=== PATIENT | female | born 1950 | race Caucasian/White ===

== ENCOUNTER → 2020-03-17 | Outpatient (CLI) | payer MEDICARE, MEDICAID ==
[~2020-03-17] MED LIST: ALBU8.5H4 IH; ALPR0.5T7 PO; ALPR1T PO; ASP81TEC PO; CATHETER FLUSH 10 ML SYR IV PRN; CETI10TA17 PO; CITA20TA4 PO; CYCL5TAB PO; ERGO400C PO; FENO145T26 PO; GLIM4TAB56 PO; INSU100I29 SQ; LISI2.5T PO; METF-380 PO; MTF500T PO; MULT-567 PO; MULTIVITAMIN; NAPR-243 PO; NF-ESOM40C PO; NITR-65 PO; PAMI30VI8 SQ; PRAV80TA2 PO; SOLI10TA2 PO; TRAM50TA2 PO
--- NOTE | 2020-03-17 12:32 | Diagnostic Imaging Report ---
Indication: Right upper quadrant pain. Patient received an intravenous dose of 5.5 mCi technetium 99m Choletec. At the 60 minute interval, patient ingested one can of Ensure for gallbladder stimulation with additional imaging performed. Gallbladder ejection fraction was normal at 83%. There is prompt homogenous distribution of radiopharmaceutical throughout the liver parenchyma. Activity can be seen within the gallbladder and the intra and extrahepatic bile ducts within 15 minutes time and by 40 minutes activity had spilled into the proximal bowel. Impression: Normal nuclear medicine hepatobiliary scan and normal gallbladder ejection fraction. Dictated by: Dictated on workstation # [id number]
== END ==
LOC: CARD 09:08
PROVIDERS: ATTEND Nurse Practitioner Family
DX: R10.11 Right upper quadrant pain (principal)
CPT/HCPCS: 78227; A9537

== ENCOUNTER 2021-06-04 12:15 | Emergency (ER) | payer MEDICARE, MEDICAID ==
[~2021-06-04] VITALS: Ht 162.5 cm; Wt 73.0 kg
[~2021-06-04 12:15] MED LIST changes: -CATHETER FLUSH 10 ML SYR IV PRN; -LISI2.5T PO; +LISI2.5T13 PO
[2021-06-04 12:43] LABS: BILIRUBIN,URINE NEGATIVE (NEGATIVE); CLARITY,URINE TURBID; COLOR,URINE YELLOW; GLUCOSE, URINE (UA) NEGATIVE (NEGATIVE); KETONES,URINE NEGATIVE (NEGATIVE); LEUKOCYTE ESTERASE ,URINE 1+ (NEGATIVE); NITRITE,URINE POSITIVE (NEGATIVE); PROTEIN,URINE TRACE (NEGATIVE)
[2021-06-04 12:47] LABS: BASOPHILS % (AUTO) 0 % (0-10); EOSINOPHILS # (AUTO) 0.2 10^3/uL (0.0-0.3); EOSINOPHILS % (AUTO) 2 % (0-10); HEMATOCRIT 41 % (35-52); HEMOGLOBIN 13.6 g/dL (11.5-16.0); LYMPHOCYTES # (AUTO) 2.6 10^3/uL (1.0-4.0); LYMPHOCYTES % (AUTO) 36 % (12-44); MEAN CORPUSCULAR HEMOGLOBIN 29 pg (25-34); MEAN CORPUSCULAR HGB CONC 33 g/dL (32-36); MEAN CORPUSCULAR VOLUME 87 fL (80-99); MEAN PLATELET VOLUME 9.8 fL (9.0-12.2); MONOCYTES # (AUTO) 0.4 10^3/uL (0.0-1.0); MONOCYTES % (AUTO) 5 % (0-12); NEUTROPHILS # (AUTO) 4.1 10^3/uL (1.8-7.8); NEUTROPHILS % (AUTO) 57 % (42-75); PLATELET COUNT 293 10^3/uL (130-400); WHITE BLOOD COUNT 7.3 10^3/uL (4.3-11.0)
--- NOTE | 2021-06-04 12:50 | ED Neurological Problem ---
General Chief Complaint: General Problems/Pain Stated Complaint: LOSS OF BALANCE Source: patient, family Exam Limitations: no limitations History of Present Illness Date Seen by Provider: Jun 04, 2021 Time Seen by Provider: 12:17 Initial Comments 71-year-old female with hospital history of hypertension, diabetes, COPD coming in with family due to difficulty walking and falling over. 10 days ago roughly she had difficulty balancing and fell to the left hitting her head. She has not seen anyone since then. She has had difficulty with her balance for the past 10 days. Denies any tinnitus or vertigo right now. States this is never happened before. Denies any associated symptoms such as chest pain, shortness of breath, abdominal pain, nausea, vomiting, diarrhea, fever, chills, focal weakness or numbness, or vision changes. No changes to her medications recently. She does have a mild headache which has been coming and going for the past 10 days and Tylenol typically takes it away. Allergies and Home Medications Allergies Coded Allergies: latex (Verified Allergy, Mild, rash, 12/10/14) ampicillin (Unverified Allergy, Unknown, 02/07/14) cetirizine HCl (Unverified Allergy, Unknown, 02/07/14) dimenhydrinate (Unverified Allergy, Unknown, 02/07/14) metformin HCl (Unverified Adverse Reaction, Unknown, 02/07/14) CAN TAKE METFORMIN Patient Home Medication List Home Medication List Reviewed: Yes Albuterol Sulfate (Albuterol Sulfate Hfa) 8.5 Gm Hfa.aer.ad, 2 PUFF IH Q4H PRN for SHORTNESS OF BREATH, (Reported) Entered as Reported by: MARCI GRACIA on 12/05/14 1614 Alprazolam (Alprazolam) 0.5 Mg Tablet, 0.5 MG PO DAILY PRN for ANXIETY, (Reported) Entered as Reported by: MARCI GRACIA on 12/05/14 1605 Cetirizine HCl (Cetirizine HCl) 10 Mg Tablet, 10 MG PO HS, (Reported) Entered as Reported by: MARCI GRACIA on 12/05/14 1613 Citalopram Hydrobromide (Citalopram Hbr) 20 Mg Tablet, 30 MG PO DAILY, (Reported) Entered as Reported by: SHILPA CHIANG on 09/03/11 1232 Cyclobenzaprine HCl (Cyclobenzaprine HCl) 5 Mg Tablet, 5-10 MG PO TID PRN for MUSCLE SPASMS, (Reported) Entered as Reported by: MARCI GRACIA on 12/05/141612 Esomeprazole Magnesium (Nexium) 40 Mg Cap, 40 MG PO HS, (Reported) Entered as Reported by: MARCI GRACIA on 12/05/141612 Fenofibrate Nanocrystallized (Fenofibrate) 145 Mg Tablet, 145 MG PO HS, (Reported) Entered as Reported by: MARCI GRACIA on 12/05/141612 Glimepiride (Amaryl) 4 Mg Tablet, 4 MG PO BID, (Reported) Entered as Reported by: MARCI GRACIA on 12/05/141612 Insulin Detemir (Levemir Flextouch) 100 Unit/1 Ml Insuln.pen, 30 UNIT SQ DAILY, (Reported) Entered as Reported by: MARCI GRACIA on 12/05/141612 Insulin Detemir (Levemir Flextouch) 100 Unit/1 Ml Insuln.pen, 25 UNIT SQ HS, (Reported) Entered as Reported by: MARCI GRACIA on 12/05/141612 Insulin Lispro (Humalog) 100 Unit/1 Ml Cartridge, 10 UNIT SQ TID WITH MEALS, (Reported) Entered as Reported by: MARCI GRACIA on 12/05/141612 Lisinopril (Lisinopril) 2.5 Mg Tablet, 2.5 MG PO DAILY, (Reported) Entered as Reported by: MARCI GRACIA on 12/05/141612 Multivitamin (Multivitamins) 1 Each Tablet, 1 TAB PO DAILY, (Reported) Entered as Reported by: MARCI GRACIA on 12/05/14 1605 Naproxen (Naprosyn) 500 Mg Tablet, 500 MG PO BID, (Reported) Entered as Reported by: SHILPA CHIANG on 09/03/11 1232 Nitrofurantoin Monohyd/M-Cryst (Macrobid 100 mg Capsule) 100 Mg Capsule, 100 MG PO BID, (Reported) Entered as Reported by: MARCI GRACIA on 8/13/15 1613 Solifenacin Succinate (Vesicare) 10 Mg Tablet, 10 MG PO DAILY, (Reported) Entered as Reported by: MARCI GRACIA on 12/05/14 1613 Tramadol Hcl (Tramadol Hcl) 50 Mg Tablet, 50-100 MG PO Q8H PRN for PAIN, (Reported) Entered as Reported by: SHILPA CHIANG on 09/03/11 1232 Review of Systems Review of Systems Constitutional: No chills, No fever Eyes: Denies Blurred Vision Ears, Nose, Mouth, Throat: no symptoms reported Respiratory: No cough, No short of breath Cardiovascular: No chest pain Gastrointestinal: No abdominal pain, No diarrhea, No nausea, No vomiting Genitourinary: no symptoms reported Musculoskeletal: no symptoms reported Skin: no symptoms reported Psychiatric/Neurological: Other (Difficulty with gait) Endocrine: No Symptoms Reported Hematologic/Lymphatic: No Symptoms Reported All Other Systems Reviewed Negative Unless Noted: Yes Past Wzwxeep-Kmzzuj-Iojbmw Hx Patient Social History Tobacco Use?: No Past Medical History Surgeries: No Asthma, COPD, Emphysema Gastroesophageal Reflux, Diverticulosis Arthritis, Chronic Back Pain Diabetes, Insulin dep Anxiety, Personality Disorder, Schizophrenia, Depression Eczema Physical Exam Vital Signs Vital Signs - First Documented 06/04/21 12:53 Temp 36.4 Pulse 90 Resp 18 B/P (MAP) 186/68 (107) Pulse Ox 99 O2 Delivery Room Air Capillary Refill : Height, Weight, BMI Height: 5'3.50" Weight: 179lbs. oz. 81.775431ui; BMI Method: General Appearance: WD/WN, no apparent distress HEENT: PERRL/EOMI, normal ENT inspection, TMs normal, pharynx normal, other (No nystagmus) Neck: non-tender, full range of motion, supple, normal inspection Respiratory: chest non-tender, lungs clear, normal breath sounds, no respiratory distress, no accessory muscle use Cardiovascular: regular rate, rhythm, no edema, no murmur Gastrointestinal: normal bowel sounds, non tender, soft; No distended, No guarding, No rebound Back: normal inspection, no CVA tenderness, no vertebral tenderness Extremities: normal range of motion, non-tender, normal inspection, no pedal edema, no calf tenderness, normal capillary refill Neurologic/Psychiatric: rivet flunky II-XII nml as tested, no motor/sensory deficits, alert, normal mood/affect, oriented x 3, other (Abnormal bgbbme-ux-evyk on the right with past-pointing, no dysdiadochokinesis, normal tzhw-dd-dxnu, normal gait but does tend to lean to the left, negative Romberg) Crainal Nerves: normal hearing, normal speech, PERRL Motor/Sensory: no motor deficit, no sensory deficit, no pronator drift Skin: normal color, warm/dry Lymphatic: no adenopathy Stroke Onset of Symptoms Date of Onset of Symptoms: May 25, 2021 Time of Symptom Onset: 08:00 Onset of Symptoms: Yes NIH Stroke Scale Assessment Select: Initial Level of Consciousness: 0=Alert (0), Level of Consciousness- Questions: 0=Answers both month/age (0), Gaze: Normal (0), Visual Villeda: 0=No visual loss (0), Facial Movement (Facial Paresis): 0=Normal symmetrical mnt (0), Motor Function-Arms Right: 0=No drift (0), Motor Function-Arms Left: 0=No drift (0), Motor Function-Legs Right: 0=No drift (0), Motor Function-L egs Left: 0=No drift (0), Limb Ataxia: 1=Present in one limb (1), Sensory: 0 =Normal:no loss (0), Best Language: 0=No aphasia (0), Dysarthria: 0=Normal (0), Extinction & Inattention: 0=No abnormality (0), Total: 1 Stroke Thrombolytic Exclusion Age 18 or Over: Yes TPA Contraindication: Yes (>10 days of symptoms) Progress/Results/Core Measures Results/Orders Lab Results Laboratory Tests Test 06/04/21 12:18 06/04/21 12:40 Range/Units Urine Color YELLOW Urine Clarity TURBID Urine pH 6.0 5-9 Urine Specific Forbes >=1.030 1.016-1.022 Urine Protein TRACE H NEGATIVE Urine Glucose (UA) NEGATIVE NEGATIVE Urine Ketones NEGATIVE NEGATIVE Urine Nitrite POSITIVE H NEGATIVE Urine Bilirubin NEGATIVE NEGATIVE Urine Urobilinogen 0.2 < = 1.0 MG/DL Urine Leukocyte Esterase 1+ H NEGATIVE Urine RBC (Auto) NEGATIVE NEGATIVE Urine RBC 0-2 /HPF Urine WBC 25-50 H /HPF Urine Squamous Epithelial Cells 2-5 /HPF Urine Crystals NONE /LPF Urine Bacteria LARGE H /HPF Urine Casts PRESENT /LPF Urine Hyaline Casts 0-2 H /LPF Urine Mucus LARGE H /LPF Urine Culture Indicated YES White Blood Count 7.3 4.3-11.0 10^3/uL Red Blood Count 4.73 3.80-5.11 10^6/uL Hemoglobin 13.6 11.5-16.0 g/dL Hematocrit 41 35-52 % Mean Corpuscular Volume 87 80-99 fL Mean Corpuscular Hemoglobin 29 25-34 pg Mean Corpuscular Hemoglobin Concent 33 32-36 g/dL Red Cell Distribution Width 13.4 10.0-14.5 % Platelet Count 293 130-400 10^3/uL Mean Platelet Volume 9.8 9.0-12.2 fL Immature Granulocyte % (Auto) 0 % Neutrophils (%) (Auto) 57 42-75 % Lymphocytes (%) (Auto) 36 12-44 % Monocytes (%) (Auto) 5 0-12 % Eosinophils (%) (Auto) 2 0-10 % Basophils (%) (Auto) 0 0-10 % Neutrophils # (Auto) 4.1 1.8-7.8 10^3/uL Lymphocytes # (Auto) 2.6 1.0-4.0 10^3/uL Monocytes # (Auto) 0.4 0.0-1.0 10^3/uL Eosinophils # (Auto) 0.2 0.0-0.3 10^3/uL Basophils # (Auto) 0.0 0.0-0.1 10^3/uL Immature Granulocyte # (Auto) 0.0 0.0-0.1 10^3/uL Prothrombin Time 13.9 12.2-14.7 SEC INR Comment 1.0 0.8-1.4 Activated Partial Thromboplast Time 28 24-35 SEC Sodium Level 140 135-145 MMOL/L Potassium Level 3.5 L 3.6-5.0 MMOL/L Chloride Level 102 98-107 MMOL/L Carbon Dioxide Level 24 21-32 MMOL/L Anion Gap 14 5-14 MMOL/L Blood Urea Nitrogen 14 7-18 MG/DL Creatinine 0.90 0.60-1.30 MG/DL Estimat Glomerular Filtration Rate 69 BUN/Creatinine Ratio 16 Glucose Level 97 70-105 MG/DL Calcium Level 9.6 8.5-10.1 MG/DL Corrected Calcium 9.3 8.5-10.1 MG/DL Total Bilirubin 0.4 0.1-1.0 MG/DL Aspartate Amino Transf (AST/SGOT) 36 H 5-34 U/L Alanine Aminotransferase (ALT/SGPT) 35 0-55 U/L Alkaline Phosphatase 37 L 40-136 U/L Troponin I < 0.30 <0.30 NG/ML Total Protein 7.4 6.4-8.2 GM/DL Albumin 4.4 3.2-4.5 GM/DL My Orders Orders - PRIYA HAYS MD Cbc With Automated Diff (06/04/21 12:36) Protime With Inr (06/04/21 12:36) Partial Thromboplastin Time (06/04/21 12:36) Comprehensive Metabolic Panel (06/04/21 12:36) Troponin I Fs (06/04/21 12:36) Ua Culture If Indicated (06/04/21 12:36) Chest 1 View Ap/Pa Only (06/04/21 12:36) Ekg Tracing (06/04/21 12:36) Accucheck Stat ONCE (06/04/21 12:36) Ed Iv/Invasive Line Start (06/04/21 12:36) Ed Iv/Invasive Line Start (06/04/21 12:36) Vital Signs Stroke Patient Q15M (06/04/21 12:36) O2 (06/04/21 12:36) Intake & Output 06,14,22 (06/04/21 12:36) Monitor-Rhythm Ecg Trace Only (06/04/21 12:36) Dysphagia Screening Tool (06/04/21 12:36) Ct Angio Head/Neck (06/04/21 12:36) Urine Culture (06/04/21 12:18) Ns Iv 500 Ml (Sodium Chloride 0.9%) (06/04/21 13:30) Ceftriaxone 1 Gm Pre-Mix (Rocephin 1 Gm (06/04/21 13:30) Iohexol Injection (Omnipaque 350 Mg/Ml 1 (06/04/21 13:30) Received Contrast (Hold Metformin- Contr (06/04/21 13:30) Sodium Chloride Flush (Catheter Flush Sy (06/04/21 13:30) Ns (Ivpb) (Sodium Chloride 0.9% Ivpb Bag (06/04/21 13:30) Dexamethasone Injection (Decadron Inje (06/04/21 15:45) Medications Given in ED Current Medications Medications Dose Ordered Sig/Priyanka Route Start Time Stop Time Status Last Admin Dose Admin Ceftriaxone Sodium/Dextrose 50 ml @ 100 mls/hr ONCE ONCE IV 06/04/21 13:30 06/04/21 13:59 DC 06/04/21 13:55 100 MLS/HR Dexamethasone Sodium Phosphate 10 mg ONCE ONCE IV 06/04/21 15:45 06/04/21 15:46 DC 06/04/21 16:35 10 MG Iohexol 75 ml ONCE ONCE IV 06/04/21 13:30 06/04/21 13:31 DC 06/04/21 14:10 75 ML Sodium Chloride 10 ml NEEDED PRN IV 06/04/21 13:30 06/04/21 14:10 10 ML Sodium Chloride 100 ml ONCE ONCE IV 06/04/21 13:30 06/04/21 13:31 DC 06/04/21 14:10 100 ML Sodium Chloride 500 ml @ 0 mls/hr Q0M ONCE IV 06/04/21 13:30 06/04/21 13:31 DC 06/04/21 13:53 0 MLS/HR Vital Signs/I&O 06/04/21 12:53 Temp 36.4 Pulse 90 Resp 18 B/P (MAP) 186/68 (107) Pulse Ox 99 O2 Delivery Room Air Progress Progress Note : Progress Note 71-year-old female with above history coming in due to ataxia and difficulty walking. ABCs were intact and vitals were stable on presentation. Physical exam with limb ataxia and she is falling to the left with her gait. She was day 10 of the symptoms so she was out of any window for any type of stroke treatment. CTA head and neck still ordered to evaluate for subacute/old stroke. This was concerning for multiple brain lesions, particularly to in her cerebellum with edema and mass-effect on her fourth ventricle. Other labs unremarkable except for concerns for UTI. She was given a dose of IV ceftriaxone as well as 500 cc of normal saline. Called [facility] at 15:19, no beds. Asked to consult with neurosurgeon regarding her case. He recommended high dose dexamethasone IV 10mg now and then 6mg IV or PO q6 hours. Recommended MRI brain with contrast and CT CAP with contrast when able but not emergent. Called [facility] at 15:[address] Taveras will be the accepting physician as a neurosurgeon. She will go to the neuro intensive care unit. Initial ECG Impression Date: Jun 04, 2021 Initial ECG Impression Time: 12:44 Initial ECG Rate: 80 Initial ECG Rhythm: Normal Sinus Comment Narrow QRS, normal axis, no significant ST changes or T wave abnormalities Diagnostic Imaging Diagonstic Imaging: Xray (chest), CT (CTA head and neck) [facility] [place] [place] NAME: SUNIL HYMAN [facility] REC#: [id number] PT STATUS: REG ER : 1950 PHYSICIAN: PRIYA HAYS MD ADMIT DATE: 06/04/21/ER FS Signed Date of Exam:06/04/21 CT ANGIO HEAD/NECK PROCEDURE: CT angiography of the head and CT angiography of the neck with and without contrast. TECHNIQUE: Contiguous noncontrast images were obtained from the skull base through the vertex. After intravenous contrast administration, helical CT angiography of the neck was performed. Source data was reformatted into 3D MIP projections. Delayed post contrast acquisition was also obtained. Auto Exposure Controls were utilized during the CT exam to meet ALARA standards for radiation dose reduction. INDICATION: STROKE, falling, loss of balance. COMPARISON: None available. FINDINGS: No intracranial hemorrhage. A 1.2 cm peripherally enhancing mass lesion is identified within the right occipital lobe with adjacent edema. Additional 3.3 x 2.1 cm peripherally enhancing mass lesion is noted within the right cerebellar hemisphere with associated adjacent hypodense edema. There is resulting mass effect with partial effacement on the 4th ventricle. Additional 1.4 cm peripherally enhancing mass within the left cerebellar hemisphere. Additional minimal subcortical hypodensities are identified within the bilateral frontal lobes. No intracranial hemorrhage. No midline shift, herniation, extra-axial fluid collection, midline shift involving the interhemispheric falx. No CT evidence of a large geographic acute ischemic infarction. The orbits are unremarkable. Small amount of fluid/mucosal thickening within the right sphenoid sinus. Partial opacification of the right mastoid air cells and middle ear cavity. The calvarium is intact. The parapharyngeal fat is symmetric and well maintained. Muscles of mastication are unremarkable. The salivary glands are unremarkable. 1.5 cm nodule suggested within the isthmus of the thyroid gland. No apical pneumothorax. 3.5 x 2.0 cm enlarged AP window lymph node within the chest. No significant adenopathy within the neck. No focal fluid collection within the neck. Scattered osseous degenerative changes without acute osseous abnormality. A three-vessel aortic arch is present. origin of the left posterior cerebral artery. Mild scattered vascular calcifications, particularly within the carotid bulbs. The proximal right vertebral artery demonstrates an abnormal course and does not extend into the transverse foramen until the level of C4/C5. The large arterial structures of the head and neck are otherwise unremarkable. Scattered osseous degenerative changes with significant central canal and right neural foraminal stenosis at C4/C5. Additional central canal stenosis present at C6/C7. IMPRESSION: Multiple peripherally enhancing intracranial mass lesions, as described above, particularly within the right aspect of the cerebellum. Findings are concerning for metastatic disease. Multifocal abscesses is an additional consideration. Recommend clinical correlation. Additionally, MRI of the brain with and without contrast would help to further evaluate. Minimal hypodensity within the subcortical white matter of the bilateral frontal lobes. This is favored to simply relate to minimal background chronic small vessel white matter ischemic disease. Edema from underlying mass lesions is not excluded. These regions should be evaluated on MRI imaging. Besides congenital anatomic variants, the large arterial structures of the head and neck are otherwise unremarkable. Degenerative changes within the cervical spine with significant central canal and neural foraminal stenosis, particularly at C4/C5. Prominent isthmic nodule. Recommend a thyroid ultrasound for further evaluation. Abnormal AP window lymph node/mass within the chest. This is concerning for malignancy/lymphoma. Recommend clinical correlation. Nonemergent CT the chest with contrast would help to further evaluate. Report was called to the [facility] at 2:57 p.m., by francesco. Dictated by: Dictated on workstation # [id number] Dict: 06/04/21 1422 Trans: 06/04/211524 FRANCESCO [id number] Interpreted by: FROILAN FOURNIER MD Electronically signed by: FROILAN FOURNIER MD 06/04/213 [facility] [place], [place] NAME: SUNIL HYMAN [facility] REC#: [id number] PT STATUS: REG ER : 1950 PHYSICIAN: PRIYA HAYS MD ADMIT DATE: 06/04/21/ER FS Signed Date of Exam:06/04/21 CHEST 1 VIEW AP/PA ONLY INDICATION: Stroke, loss of balance. COMPARISON: None available. TECHNIQUE: Single frontal radiograph of the chest dated 06/04/2021. FINDINGS: The cardiac silhouette is within normal limits in size. No significant pulmonary vascular congestion. Mild elevation of the left hemidiaphragm. The lungs are clear of focal pulmonary opacity. No pleural effusion. No pneumothorax. No acute osseous abnormality. IMPRESSION: Mild elevation of the left hemidiaphragm. Otherwise, unremarkable exam for age. Dictated by: Dictated on workstation # [id number] Dict: 06/04/21 1315 Trans: 06/04/21 1524 [id number] Interpreted by: FROILAN FOURNIER MD Electronically signed by: FROILAN FOURNIER MD 06/04/21 1524 Departure Impression Primary Impression: Cerebellar mass Additional Impressions: Ataxia Cerebral edema Disposition: XF [facility] HOSP Condition: Stable Transfer Transfer Reason: Exceeds level of care Time Spoke to Accepting Phy: 16:00 Transfer Progress Notes Discussed the case with [facility] and Dr. Taveras will accept to the neuro ICU. Transfer Facility: [facility] Method of Transfer: Air Departure-Patient Inst. Referrals: NO,LOCAL PHYSICIAN (PCP/Family) Primary Care Physician PRIYA HAYS MD Jun 04, 2021 12:50
[2021-06-04 12:52] LABS: BACTERIA,URINE LARGE /HPF; HYALINE CASTS, URINE 0-2 /LPF; RBC,URINE 0-2 /HPF; WBC,URINE 25-50 /HPF
[2021-06-04 13:09] LABS: PROTHROMBIN TIME PATIENT 13.9 SEC (12.2-14.7)
--- NOTE | 2021-06-04 13:22 | Diagnostic Imaging Report ---
INDICATION: Stroke, loss of balance. COMPARISON: None available. TECHNIQUE: Single frontal radiograph of the chest dated 06/04/2021. FINDINGS: The cardiac silhouette is within normal limits in size. No significant pulmonary vascular congestion. Mild elevation of the left hemidiaphragm. The lungs are clear of focal pulmonary opacity. No pleural effusion. No pneumothorax. No acute osseous abnormality. IMPRESSION: Mild elevation of the left hemidiaphragm. Otherwise, unremarkable exam for age. Dictated by: Dictated on workstation # [id number]
[2021-06-04] MEDS ORDERED: HOLD METFORMIN - RECEIVED CONTRAST 20 ML VIAL IV SCH (13:30)
[2021-06-04] MEDS ORDERED: NS IV 500 ML 500 ML IV ONE (13:30)
[2021-06-04] MEDS ORDERED: CATHETER FLUSH 10 ML SYR IV PRN (13:30)
[2021-06-04] MEDS ORDERED: IOHEXOL 350 MG/ML 150 ML (OMNIPAQUE 350) VIAL IV ONE (13:30)
[2021-06-04] MEDS ORDERED: cefTRIAXone 1 GM PRE-MIX 50 ML IV ONE (13:30)
[2021-06-04] MEDS ORDERED: NS 100 ML (IVPB) BAG IV ONE (13:30)
[2021-06-04 13:53] LABS: ALANINE AMINOTRANSFERASE 35 U/L (0-55); ALBUMIN 4.4 GM/DL (3.2-4.5); ALKALINE PHOSPHATASE 37 U/L (40-136); BILIRUBIN,TOTAL 0.4 MG/DL (0.1-1.0); BUN/CREATININE RATIO 16; CALCIUM 9.6 MG/DL (8.5-10.1); CARBON DIOXIDE 24 MMOL/L (21-32); CHLORIDE 102 MMOL/L (98-107); GFR ESTIMATED 69; GLUCOSE 97 MG/DL (70-105); POTASSIUM 3.5 MMOL/L (3.6-5.0); SODIUM 140 MMOL/L (135-145); TOTAL PROTEIN 7.4 GM/DL (6.4-8.2)
--- NOTE | 2021-06-04 15:02 | Diagnostic Imaging Report ---
PROCEDURE: CT angiography of the head and CT angiography of the neck with and without contrast. TECHNIQUE: Contiguous noncontrast images were obtained from the skull base through the vertex. After intravenous contrast administration, helical CT angiography of the neck was performed. Source data was reformatted into 3D MIP projections. Delayed post contrast acquisition was also obtained. Auto Exposure Controls were utilized during the CT exam to meet ALARA standards for radiation dose reduction. INDICATION: STROKE, falling, loss of balance. COMPARISON: None available. FINDINGS: No intracranial hemorrhage. A 1.2 cm peripherally enhancing mass lesion is identified within the right occipital lobe with adjacent edema. Additional 3.3 x 2.1 cm peripherally enhancing mass lesion is noted within the right cerebellar hemisphere with associated adjacent hypodense edema. There is resulting mass effect with partial effacement on the 4th ventricle. Additional 1.4 cm peripherally enhancing mass within the left cerebellar hemisphere. Additional minimal subcortical hypodensities are identified within the bilateral frontal lobes. No intracranial hemorrhage. No midline shift, herniation, extra-axial fluid collection, midline shift involving the interhemispheric falx. No CT evidence of a large geographic acute ischemic infarction. The orbits are unremarkable. Small amount of fluid/mucosal thickening within the right sphenoid sinus. Partial opacification of the right mastoid air cells and middle ear cavity. The calvarium is intact. The parapharyngeal fat is symmetric and well maintained. Muscles of mastication are unremarkable. The salivary glands are unremarkable. 1.5 cm nodule suggested within the isthmus of the thyroid gland. No apical pneumothorax. 3.5 x 2.0 cm enlarged AP window lymph node within the chest. No significant adenopathy within the neck. No focal fluid collection within the neck. Scattered osseous degenerative changes without acute osseous abnormality. A three-vessel aortic arch is present. origin of the left posterior cerebral artery. Mild scattered vascular calcifications, particularly within the carotid bulbs. The proximal right vertebral artery demonstrates an abnormal course and does not extend into the transverse foramen until the level of C4/C5. The large arterial structures of the head and neck are otherwise unremarkable. Scattered osseous degenerative changes with significant central canal and right neural foraminal stenosis at C4/C5. Additional central canal stenosis present at C6/C7. IMPRESSION: Multiple peripherally enhancing intracranial mass lesions, as described above, particularly within the right aspect of the cerebellum. Findings are concerning for metastatic disease. Multifocal abscesses is an additional consideration. Recommend clinical correlation. Additionally, MRI of the brain with and without contrast would help to further evaluate. Minimal hypodensity within the subcortical white matter of the bilateral frontal lobes. This is favored to simply relate to minimal background chronic small vessel white matter ischemic disease. Edema from underlying mass lesions is not excluded. These regions should be evaluated on MRI imaging. Besides congenital anatomic variants, the large arterial structures of the head and neck are otherwise unremarkable. Degenerative changes within the cervical spine with significant central canal and neural foraminal stenosis, particularly at C4/C5. Prominent isthmic nodule. Recommend a thyroid ultrasound for further evaluation. Abnormal AP window lymph node/mass within the chest. This is concerning for malignancy/lymphoma. Recommend clinical correlation. Nonemergent CT the chest with contrast would help to further evaluate. Report was called to the [facility] [place] [facility] at 2:57 p.m., by melvi. Dictated by: Dictated on workstation # [id number]
[2021-06-04 17:35] VITALS: BP 137/90
== END 2021-06-04 17:35 | disposition short-term general hospital (02) ==
LOC: EDUNIT# 12:15 → ER FS 12:17
DX: G93.6 Cerebral edema (principal); G11.9 Hereditary ataxia, unspecified; I10 Essential (primary) hypertension; E11.9 Type 2 diabetes mellitus without complications; F32.9 Major depressive disorder, single episode, unspecified; K21.9 Gastro-esophageal reflux disease without esophagitis; J43.9 Emphysema, unspecified; F41.9 Anxiety disorder, unspecified; F20.9 Schizophrenia, unspecified; F60.9 Personality disorder, unspecified; Z88.8 Allergy status to other drugs, medicaments and biological substances; Z79.4 Long term (current) use of insulin; Z79.899 Other long term (current) drug therapy
CPT/HCPCS: 36415; 70496; 70498; 71045; 80053; 81000; 84484; 85025; 85610; 85730; 87077; 87088; 87186; 93005; 93041; 99291

== ENCOUNTER 2021-06-16 12:45 | Inpatient (IN) | payer MEDICARE, MEDICAID ==
[~2021-06-16] VITALS: Ht 162 cm; Wt 68.2 kg
[2021-06-16] MEDS ORDERED: DOCUSATE SODIUM 100 MG (COLACE) CAP PO PRN (13:00)
[2021-06-16] MEDS ORDERED: LACTULOSE SYRUP 10GM/15ML (ENULOSE) 30ML UDC PO PRN (13:00)
[2021-06-16] MEDS ORDERED: guaiFENesin/CODEINE (ROBITUSSIN AC) 10ML UDC PO PRN (13:00)
[2021-06-16] MEDS ORDERED: ONDANSETRON 4 MG (ZOFRAN) ORAL DISSOLVE TAB PO PRN (13:00)
[2021-06-16] MEDS ORDERED: CALCIUM CARBONATE 500 MG (TUMS) TAB.CHEW PO PRN (13:00)
[2021-06-16] MEDS ORDERED: FLEET ENEMA ADULT 1 EA BTL PR PRN (13:00)
[2021-06-16] MEDS ORDERED: MELATONIN 3 MG TABLET PO PRN (13:00)
[2021-06-16] MEDS ORDERED: ACETAMINOPHEN 325 MG TABLET PO PRN (13:00)
[2021-06-16] MEDS ORDERED: LOPERAMIDE 2 MG (IMODIUM) TABLET PO PRN (13:00)
[2021-06-16] MEDS ORDERED: ALPRAZolam 0.25 MG (XANAX) TAB PO PRN (13:00)
[2021-06-16] MEDS ORDERED: BISACODYL 10 MG SUPP (DULCOLAX) PR PRN (13:00)
[2021-06-16] MEDS ORDERED: OXYB5TAB13 PO (14:54)
[2021-06-16] MEDS ORDERED: INSU100I32 SQ (14:54)
[2021-06-16] MEDS ORDERED: INSU100I14 SQ ×2 (14:54)
[2021-06-16] MEDS ORDERED: MULT-1136 PO (14:54)
[2021-06-16] MEDS ORDERED: ALB0.5V INH (14:54)
[2021-06-16] MEDS ORDERED: ACET325C7 PO (14:54)
[2021-06-16] MEDS ORDERED: DULO60CA59 PO (14:54)
[2021-06-16] MEDS ORDERED: FENO145T26 PO (14:54)
[2021-06-16] MEDS ORDERED: SENN-109 PO (14:54)
[2021-06-16] MEDS ORDERED: ROSU20TA32 PO (14:54)
[2021-06-16] MEDS ORDERED: DEXA4TAB PO (14:54)
[2021-06-16] MEDS ORDERED: SEMA1PEN3 SQ (14:54)
[2021-06-16] MEDS ORDERED: PANT40TA52 PO (14:54)
[2021-06-16] MEDS ORDERED: FLAX10004 PO (14:54)
[2021-06-16] MEDS ORDERED: ASPI-1238 PO (14:54)
[2021-06-16] MEDS ORDERED: HEPA50002 IJ (14:54)
[2021-06-16 15:34] VITALS: BP 108/58
--- NOTE | 2021-06-16 15:47 | PM&R Post Admission Assessment ---
PM&R HP Date of Visit: Jun 16, 2021 Time of Visit: 18:30 History of Present Illness Chief complaint: Brain surgery debility History of present illness: This is a 71-year-old white female from following craniotomy due to right cerebellar brain mass resection. Patient smoked for 50 years but quit recently to protect the health of her dog. She is in need of aggressive rehab due to continued balance issues and weakness and will undergo radiation treatment daily. She has a longstanding history of mental illness with schizophrenia and lives at home alone. Currently she is waiting on her supper and reports no dysphagia. Prior level of function was independent without the use of assistive devices. 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 She was seen at the emergency room in [place] for balance issues and headaches and CT scan revealed a posterior fossa lesion. She was then transferred to [facility] on 06/04/21. A CT scan showed 4 rim enhancing lesions concerning for brain metastasis. It is suspected that the brain tumors are metastasis form small cell carcinoma of the lungs and a lung biopsy was taken to assess but the pathology is still pending. A craniotomy was performed to remove the right cerebellar brain tumor. After the craniotomy, the patient was found to have both functional and mobile deficits and was working with PT/OT at [facility]. It was recommended that the patient go to an intensive rehabilitation therapy program after she was discharged. She was discharged to [facility] rehabilitation program. Patient says she is feeling excellent today. She reports no pain or discomfort but does say she is fatigued. She says she had diarrhea all night last night after taking milk of magnesium. PMH: hypertension, type II diabetes, COPD, emphysema, hyperlipidemia, Schizophrenia, fatty liver, small cell carcinoma of the lungs, metastatic cerebellar tumor, GERD, diverticulosis, anxiety Surgical history: craniotomy, lung biospy, breast lumpectomy, hysterectomy, tonsillectomy Allergies: latex, ampicillin, cetrizine, dimenhydrinate, metformin Home Medications: Aspirin 81 MG PO DAILY, Dexamethasone 4 MG PO BID WITH MEALS, Duloxetine HCl 60 MG PO DAILY, Fenofibrate Nanocrystallized 145 MG PO DAILY, Flaxseed Oil 1,000 MG PO BID, Heparin Sodium,Porcine/Pf 0.5 ML IJ Q8H, Insulin Aspart 20 UNITS SQ BID WITH MEALS, Insulin Aspart 25 UNITS SQ 1200 W/MEAL, Insulin Degludec 50 UNIT SQ DAILY, Multivitamin 1 EACH PO DAILY, Oxybutynin Chloride 5 MG PO TID, Pantoprazole Sodium 40 MG PO DAILY, Rosuvastatin Calcium 20 MG PO DAILY, Semaglutide 1 MG SQ WED Social history: Lives in an apartment in [place] next door to her ex- who helps take care of her. She has caregivers that assist her 30 hours a week. Previous smoker (180 pack year history) who quit 5 years ago, denies alcohol use, denies illicit drug use. ROS: Patient denies chills, fever, chest pain, palpitations, sob, vomiting, constipation, nausea, headache, vision changes. Admits to feeling weak and fatigued. Says she has dyspnea with exertion. Says she is having diarrhea. 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 Type 2 diabetes HTN HLD COPD Fatty liver disease Anxiety Plan: Debility - patient will be working with PT and OT to work on strength and balance Cognitive deficit - condition seems to have resolved Small cell lung cancer - pathology pending for formal diagnosis - preliminary findings were consistent with small cell carcinoma - if positive for small cell carcinoma, plans for systemic chemotherapy will be initiated by oncology 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 - chemotherapy is being deferred until incision has healed and patient has rodrick demarcus her strength - patient will follow up with oncology Type 2 diabetes - restart home medications insulin aspart on a sliding scale, insulin degludec, and semaglutide - blood glucose levels need to be checked - patient put on a diabetic diet HTN - patient's BP is low and no medication are needed at this time for HTN HLD - restart home medications fenofibrate and rosuvastatin COPD - restart home medication albuterol Fatty liver disease - condition stable Anxiety - restart home medication duloxetine Past Xfmmihc-Dvjlxc-Wisjbr Hx Past Med/Social Hx: Reviewed Nursing Past Med/Soc Hx, Reviewed and Corrections made Patient Social History Marrital Status: single Employed/Student: unemployed Alcohol Use: Denies Use Smoking Status: Former Smoker Recent Foreign Travel: No Contact w/other who traveled: No Immunizations Up To Date Date of Pneumonia Vaccine: Mar 25, 2011 Past Medical History craniotomy and cerebellar mass resection [facility] Respiratory: COPD Cardiac: High Cholesterol, Hypertension Genitourinary: Bladder Infection Gastrointestinal: Gastroesophageal Reflux, Diverticulosis Musculoskeletal: Arthritis, Chronic Back Pain Endocrine: Diabetes, Insulin dep Psychosocial: Anxiety, Personality Disorder, Schizophrenia, Depression Skin/Integumentary: Eczema PM&R Allergy/Meds/Data Review Allergies Coded Allergies: latex (Verified Allergy, Mild, rash, 12/10/14) ampicillin (Unverified Allergy, Unknown, 02/07/14) cetirizine HCl (Unverified Allergy, Unknown, 02/07/14) dimenhydrinate (Unverified Allergy, Unknown, 02/07/14) metformin HCl (Unverified Adverse Reaction, Unknown, 02/07/14) CAN TAKE METFORMIN Home Medications Scheduled Aspirin (Aspirin EC), 81 MG PO DAILY, (Reported) Dexamethasone (Dexamethasone), 4 MG PO BID WITH MEALS, (Reported) Duloxetine HCl (Duloxetine HCl), 60 MG PO DAILY, (Reported) Fenofibrate Nanocrystallized (Fenofibrate), 145 MG PO DAILY, (Reported) Flaxseed Oil (Flaxseed Oil), 1,000 MG PO BID, (Reported) Heparin Sodium,Porcine/Pf (Heparin Sod 5,000 Unit/0.5 ml), 0.5 ML IJ Q8H, (Reported) Insulin Aspart (Novolog Flexpen), 20 UNITS SQ BID WITH MEALS, (Reported) Insulin Aspart (Novolog Flexpen), 25 UNITS SQ 1200 W/MEAL, (Reported) Insulin Degludec (Tresiba Flextouch U-100), 50 UNIT SQ DAILY, (Reported) Multivitamin (Multivitamin), 1 EACH PO DAILY, (Reported) Oxybutynin Chloride (Oxybutynin Chloride), 5 MG PO TID, (Reported) Pantoprazole Sodium (Pantoprazole Sodium), 40 MG PO DAILY, (Reported) Rosuvastatin Calcium (Rosuvastatin Calcium), 20 MG PO DAILY, (Reported) Semaglutide (Ozempic), 1 MG SQ WED, (Reported) Scheduled PRN Acetaminophen (Tylenol), 650 MG PO Q4H PRN for PAIN-MILD (1-4), (Reported) Albuterol Sulfate (Albuterol Sulfate), 2.5 MG INH Q6H PRN for SHORTNESS OF BREATH, (Reported) Sennosides/Docusate Sodium (Senna-S Tablet), 1 EACH PO BID PRN for CONSTIPATION- 6TH LINE, (Reported) Discontinued Medications Albuterol Sulfate (Albuterol Sulfate Hfa), 2 PUFF IH Q4H PRN for SHORTNESS OF BREATH, (Reported) Discontinued Reason: No Longer Taking Alprazolam (Alprazolam), 0.5 MG PO DAILY PRN for ANXIETY, (Reported) Discontinued Reason: No Longer Taking Cetirizine HCl (Cetirizine HCl), 10 MG PO HS, (Reported) Discontinued Reason: No Longer Taking Citalopram Hydrobromide (Citalopram Hbr), 30 MG PO DAILY, (Reported) Discontinued Reason: No Longer Taking Cyclobenzaprine HCl (Cyclobenzaprine HCl), 5-10 MG PO TID PRN for MUSCLE SPASMS, (Reported) Discontinued Reason: No Longer Taking Esomeprazole Magnesium (Nexium), 40 MG PO HS, (Reported) Discontinued Reason: No Longer Taking Fenofibrate Nanocrystallized (Fenofibrate), 145 MG PO HS, (Reported) Discontinued Reason: No Longer Taking Glimepiride (Amaryl), 4 MG PO BID, (Reported) Discontinued Reason: No Longer Taking Insulin Detemir (Levemir Flextouch), 30 UNIT SQ DAILY, (Reported) Discontinued Reason: No Longer Taking Insulin Detemir (Levemir Flextouch), 25 UNIT SQ HS, (Reported) Discontinued Reason: No Longer Taking Insulin Lispro (Humalog), 10 UNIT SQ TID WITH MEALS, (Reported) Discontinued Reason: No Longer Taking Lisinopril (Lisinopril), 2.5 MG PO DAILY, (Reported) Discontinued Reason: No Longer Taking Multivitamin (Multivitamins), 1 TAB PO DAILY, (Reported) Discontinued Reason: No Longer Taking Naproxen (Naprosyn), 500 MG PO BID, (Reported) Discontinued Reason: No Longer Taking Nitrofurantoin Monohyd/M-Cryst (Macrobid 100 mg Capsule), 100 MG PO BID, (Reported) Discontinued Reason: No Longer Taking Solifenacin Succinate (Vesicare), 10 MG PO DAILY, (Reported) Discontinued Reason: No Longer Taking Tramadol Hcl (Tramadol Hcl), 50-100 MG PO Q8H PRN for PAIN, (Reported) Discontinued Reason: No Longer Taking Current Medications Current Medications Reviewed Review of Systems Constitutional: see HPI, dizziness, malaise, weakness EENTM: no symptoms reported Respiratory: dyspnea on exertion Cardiovascular: no symptoms reported Gastrointestinal: no symptoms reported Genitourinary: no symptoms reported Musculoskeletal: back pain, joint pain Skin: no symptoms reported Psychiatric/Neurological: Anxiety, Depressed, Emotional Problems, Numbness, Weakness All Other Systems Reviewed Negative Unless Noted: Yes Physical Exam Physical Exam Vital Signs Vital Signs - First Documented 06/16/21 15:34 Temp 36.1 Pulse 98 Resp 22 B/P (MAP) 108/58 (75) Pulse Ox 97 O2 Delivery Room Air Capillary Refill : Height, Weight, BMI Height: 5'3.50" Weight: 179lbs. oz. 81.926997tz; 27.00 BMI Method: General Appearance: No Apparent Distress, WD/WN, Anxious, Chronically ill Eyes: Bilateral Eye Normal Inspection, Bilateral Eye PERRL HEENT: PERRL/EOMI, Normal ENT Inspection, Pharynx Normal Neck: Full Range of Motion, Normal Inspection, Non Tender, Supple, Carotid Bruit Respiratory: Chest Non Tender, Lungs Clear, No Accessory Muscle Use, No Respiratory Distress, Decreased Breath Sounds Cardiovascular: Regular Rate, Rhythm, No Edema, No Gallop, No JVD, No Murmur, Normal Peripheral Pulses Gastrointestinal: Normal Bowel Sounds, No Organomegaly, No Pulsatile Mass, Non Tender, Soft Back: Normal Inspection, No CVA Tenderness, No Vertebral Tenderness Extremity: Normal Capillary Refill, Normal Inspection, Normal Range of Motion, Non Tender, No Calf Tenderness, No Pedal Edema Neurologic/Psychiatric: Alert, Oriented x3, No Motor/Sensory Deficits, bath steward/stewardess II- XII Norm as Tested, Abnormal Gait, Depressed Affect, Motor Weakness (Generalized weakness) Skin: Normal Color, Warm/Dry Lymphatic: No Adenopathy PM&R Medical Assessment & Plan REHAB/MEDICAL ASSESSMENT AND PLAN: REHAB IMPAIRMENT GROUP: Brain surgery debility ETIOLOGIC DIAGNOSIS: Brain surgery debility The comorbidities that impact the patients function and/or functional outcome by: Lives alone, mental illness, fall risk, diabetes [id number] due to steroids REHAB PLAN: The patient is being admitted to our comprehensive inpatient rehabilitation facility and can tolerate the intensity of service consisting of at least: 180 minutes of therapy a day, 5 out of 7 days a week Rehab treatment will consist of: PT and OT will focus on regaining function with use of assistive devices and speech therapy will assure solid thought processes to make decisions in order to remain independent living The patient/family has a good understanding of our discharge process and will benefit from an interdisciplinary inpatient rehabilitation program. The patient has potential to make improvement and is in need of at least two of the following multidisciplinary therapies including but not limited to physical, occupational, speech, and prosthetics and orthotics. Additionally the patient will need services from respiratory, nutritional services, wound care, psychology, etc. (Customize this to each patient). Given the patients complex c ondition and risk of further medical complications, rehabilitation services cannot be safely or effectively provided at a lower level of care such as a shelter facility. BARRIERS TO DISCHARGE: Lives alone with mental illness diabetes [id number] ESTIMATED LOS: 10 days DISPOSITION: Home RELEVANT CHANGES SINCE PREADMISSION SCREENING: I have compared the patients medical and functional status at the time of the preadmission screening and there are: No changes PROGNOSIS: Guarded REHABILITATION GOALS: 1. PT and OT will focus on regaining function with use of assistive devices and speech therapy will assure solid thought processes to make decisions in order to remain independent living All the above goals were reviewed with the patient and he/she is in agreement. By signing this document, I acknowledge that I have personally performed a full physical examination on this patient within 24 hours of admission to this inpatient rehabilitation facility and have determined the patient to be able to tolerate the above course of treatment at an intensive level for a reasonable period of time. I will be completing a detailed individualized Plan of Care for this patient by day #4 of the patients stay based upon the Preadmission Screen, the Post-Admission Evaluation, and the therapy evaluations. Admission Dx/Comorbidities: (1) Cerebellar mass Status: Acute ICD Codes: G93.89 - Other specified disorders of brain (2) Personality disorder ICD Codes: F60.9 - Personality disorder, unspecified (3) Diabetes mellitus ICD Codes: E11.9 - Type 2 diabetes mellitus without complications (4) Former smoker ICD Codes: Z87.891 - Personal history of nicotine dependence (5) Ataxia Status: Acute ICD Codes: R27.0 - Ataxia, unspecified (6) Cerebral edema Status: Acute ICD Codes: G93.6 - Cerebral edema Assessment/Plan Assessment and Plan Assess & Plan/Chief Complaint Debility Cognitive deficit Small cell lung cancer 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
--- NOTE | 2021-06-16 16:55 | Progress Note ---
MIGUEL CRAIN 06/16/21 4695: Progress Note CC: Brain dysfunction- non traumatic HPI: Swetha is a 71 yo F with a PMH significant for possible small cell carcinoma of the lungs and cerebellar tumor. She was seen at the emergency room in [place] for balance issues and headaches and CT scan revealed a posterior fossa lesion. She was then transferred to [facility] on 06/04/21. A CT scan showed 4 rim enhancing lesions concerning for brain metastasis. It is suspected that the brain tumors are metastasis form small cell carcinoma of the lungs and a lung biopsy was taken to assess but the pathology is still pending. A craniotomy was performed to remove the right cerebellar brain tumor. After the craniotomy, the patient was found to have both functional and mobile deficits and was working with PT/OT at [facility]. It was recommended that the patient go to an intensive rehabilitation therapy program after she was discharged. She was discharged to [facility] rehabilitation program. Patient says she is feeling excellent today. She reports no pain or discomfort but does say she is fatigued. She says she had diarrhea all night last night after taking milk of magnesium. PMH: hypertension, type II diabetes, COPD, emphysema, hyperlipidemia, Schizophrenia, fatty liver, small cell carcinoma of the lungs, metastatic cerebellar tumor, GERD, diverticulosis, anxiety Surgical history: craniotomy, lung biospy, breast lumpectomy, hysterectomy, tonsillectomy Allergies: latex, ampicillin, cetrizine, dimenhydrinate, metformin Home Medications: Aspirin 81 MG PO DAILY, Dexamethasone 4 MG PO BID WITH MEALS, Duloxetine HCl 60 MG PO DAILY, Fenofibrate Nanocrystallized 145 MG PO DAILY, Flaxseed Oil 1,000 MG PO BID, Heparin Sodium,Porcine/Pf 0.5 ML IJ Q8H, Insulin Aspart 20 UNITS SQ BID WITH MEALS, Insulin Aspart 25 UNITS SQ 1200 W/MEAL, Insulin Degludec 50 UNIT SQ DAILY, Multivitamin 1 EACH PO DAILY, Oxybutynin Chloride 5 MG PO TID, Pantoprazole Sodium 40 MG PO DAILY, Rosuvastatin Calcium 20 MG PO DAILY, Semaglutide 1 MG SQ WED Social history: Lives in an apartment in [place] next door to her ex- who helps take care of her. She has caregivers that assist her 30 hours a week. Previous smoker (180 pack year history) who quit 5 years ago, denies alcohol use, denies illicit drug use. ROS: Patient denies chills, fever, chest pain, palpitations, sob, vomiting, constipation, nausea, headache, vision changes. Admits to feeling weak and fatigued. Says she has dyspnea with exertion. Says she is having diarrhea. 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 Type 2 diabetes HTN HLD COPD Fatty liver disease Anxiety Plan: Debility - patient will be working with PT and OT to work on strength and balance Cognitive deficit - condition seems to have resolved Small cell lung cancer - pathology pending for formal diagnosis - preliminary findings were consistent with small cell carcinoma - if positive for small cell carcinoma, plans for systemic chemotherapy will be initiated by oncology 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 - chemotherapy is being deferred until incision has healed and patient has recovered her strength - patient will follow up with oncology Type 2 diabetes - restart home medications insulin aspart on a sliding scale, insulin degludec, and semaglutide - blood glucose levels need to be checked - patient put on a diabetic diet HTN - patient's BP is low and no medication are needed at this time for HTN HLD - restart home medications fenofibrate and rosuvastatin COPD - restart home medication albuterol Fatty liver disease - condition stable Anxiety - restart home medication duloxetine MADHURI MCCRARY DO 06/17/21 0551: Supervisory-Addendum Brief Verification & Attestation Participated in pt care: history, MDM, physical Personally performed: exam, history, MDM, supervision of care Care discussed with: Medical Student Procedures: n/a Results interpretation: Verified all documentation Verification and Attestation of Medical Student E/M Service A medical student performed and documented this service in my presence. I reviewed and verified all information documented by the medical student and made modifications to such information, when appropriate. I personally performed the physical exam and medical decision making. Madhuri Mccrary, Jun 17, 2021,05:51 MIGUEL CRAIN Jun 16, 2021 16:55 MADHURI MCCRARY DO Jun 17, 2021 05:51
[2021-06-16] MEDS ORDERED: NON-FORMULARY MEDICATION 1 EA EA (Acetaminophen (Tylenol) 650 MG) PO PRN (18:30)
[2021-06-16] MEDS ORDERED: SENNA W/DOCUSATE (SENOKOT S) TABLET PO PRN (18:30)
[2021-06-16] MEDS ORDERED: NON-FORMULARY MEDICATION 1 EA EA (Insulin Aspart (Novolog Flexpen) 25 UNITS) SQ SCH (18:30)
[2021-06-16] MEDS ORDERED: RT-ALBUTEROL SULF 2.5 MG/3 ML PRE-MIX VIAL INH PRN (18:30)
[2021-06-16] MEDS ORDERED: NON-FORMULARY MEDICATION 1 EA EA (Semaglutide (Ozempic) 1 MG) SQ SCH (18:30)
[2021-06-16 20:00] VITALS: BP 119/58
[2021-06-16] MEDS ORDERED: NON-FORMULARY MEDICATION 1 EA EA (Flaxseed Oil 1,000 MG) PO SCH (21:00)
[2021-06-16] MEDS: DOCUSATE SODIUM 100 MG (COLACE) CAP PO SCH (21:13)
[2021-06-16] MEDS: polyethylene glycoL POWDER 17 GM (MIRALAX) PACK PO SCH (21:13)
[2021-06-16] MEDS: SENNA W/DOCUSATE (SENOKOT S) TABLET PO SCH (21:14)
[2021-06-16] MEDS: OXYBUTYNIN (DITROPAN) 5 MG TAB PO SCH (21:14)
[2021-06-17] MEDS: MULTIVIT W/MINERALS TAB (THERAGRAN M) PO SCH (06:31)
[2021-06-17 06:47] LABS: BASOPHILS % (AUTO) 0 % (0-10); EOSINOPHILS # (AUTO) 0.3 10^3/uL (0.0-0.3); EOSINOPHILS % (AUTO) 2 % (0-10); HEMATOCRIT 37 % (35-52); HEMOGLOBIN 12.5 g/dL (11.5-16.0); LYMPHOCYTES % (AUTO) 37 % (12-44); MEAN CORPUSCULAR HEMOGLOBIN 30 pg (25-34); MEAN CORPUSCULAR HGB CONC 34 g/dL (32-36); MEAN CORPUSCULAR VOLUME 88 fL (80-99); MEAN PLATELET VOLUME 9.8 fL (9.0-12.2); MONOCYTES # (AUTO) 0.7 10^3/uL (0.0-1.0); MONOCYTES % (AUTO) 5 % (0-12); NEUTROPHILS # (AUTO) 7.3 10^3/uL (1.8-7.8); NEUTROPHILS % (AUTO) 53 % (42-75); PLATELET COUNT 308 10^3/uL (130-400); WHITE BLOOD COUNT 13.6 10^3/uL (4.3-11.0)
[2021-06-17 06:54] LABS: ALBUMIN 3.8 GM/DL (3.2-4.5); POTASSIUM 4.4 MMOL/L (3.6-5.0)
[2021-06-17 06:56] LABS: CALCIUM 9.1 MG/DL (8.5-10.1)
[2021-06-17 06:57] LABS: TOTAL PROTEIN 6.5 GM/DL (6.4-8.2)
[2021-06-17 06:59] LABS: BILIRUBIN,TOTAL 0.5 MG/DL (0.1-1.0)
[2021-06-17 07:01] LABS: CREATININE SERUM 0.85 MG/DL (0.60-1.30)
--- NOTE | 2021-06-17 07:18 | PM&R Progress Note ---
Subjective HPI/CC On Admission Date Seen by Provider: Jun 17, 2021 Time Seen by Provider: 12:45 Subjective/Events-last exam 06/17/2021: Pt is doing well Stefan Garcia will be brought in by the family Bowels moved yesterday and they were loose Checked meds and labs No pain is reported Labile sugars and in the afternoon she was very low so I adjusted insulin dramatically Review of Systems General: Fatigue, Malaise Neurological: Confusion Objective Exam Vital Signs Vital Signs Date Time Temp Pulse Resp B/P (MAP) Pulse Ox O2 Delivery O2 Flow Rate FiO2 06/17/21 22:49 96 Room Air 21 06/17/21 20:27 35.8 87 18 119/51 (73) Capillary Refill : General Appearance: No Apparent Distress, WD/WN, Anxious, Chronically ill HEENT: PERRL/EOMI, Normal ENT Inspection, Pharynx Normal Neck: Full Range of Motion, Normal Inspection, Non Tender, Supple, Carotid Bruit Respiratory: Chest Non Tender, Lungs Clear, No Accessory Muscle Use, No Respiratory Distress, Decreased Breath Sounds Cardiovascular: Regular Rate, Rhythm, No Edema, No Gallop, No JVD, No Murmur, Normal Peripheral Pulses Gastrointestinal: Normal Bowel Sounds, No Organomegaly, No Pulsatile Mass, Non Tender, Soft Back: Normal Inspection, No CVA Tenderness, No Vertebral Tenderness Extremity: Normal Capillary Refill, Normal Inspection, Normal Range of Motion, Non Tender, No Calf Tenderness, No Pedal Edema Neurologic/Psychiatric: Alert, Oriented x3, No Motor/Sensory Deficits, program supervisor II- XII Norm as Tested, Abnormal Gait, Depressed Affect, Motor Weakness (Generalized weakness) Skin: Normal Color, Warm/Dry Lymphatic: No Adenopathy Results/Procedures Lab Laboratory Tests 06/17/21 06:24 Patient resulted labs reviewed. [facility] Transfers Therapy Code Descriptions/Definitions Functional [place] Measure: 0=Not Assessed/NA 4=Minimal Assistance 1=Total Assistance 5=Supervision or Setup 2=Maximal Assistance 6=Modified [place] 3=Moderate Assistance 7=Complete IndependenceSCALE: Activities may be completed with or without assistive devices. 2-Ghfkilzshb-uvunimj completes the activity by him/herself with no assistance from a helper. 5-Set-up or Clean-up Assistance-helper sets up or cleans up; patient completes activity. [place] assists only prior to or following the activity. 4-Supervision or Touching Assistance-helper provides verbal cues and/or touching/steadying and/or contact guard assistance as patient completes activity. Assistance may be provided throughout the activity or intermittently. 3-Partial/Moderate Assistance-helper does LESS THAN HALF the effort. [place] lifts, holds or supports trunk or limbs, but provides less than half the effort. 2-Substantial/Maximal Assistance-helper does MORE THAN HALF the effort. [place] lifts or holds trunk or limbs and provides more than half the effort. 3-Wrzdboibd-roepjk does ALL the effort. Patient does none of the effort to complete the activity. Or, the assistance of 2 or more helpers is required for the patient to complete the activity. If activity was not attempted, code reason: 7-Patient Refused. 9-Not Applicable-not attempted and the patient did not perform the activity before the current illness, exacerbation or injury. 10-Not Attempted due to Environmental Limitations-(lack of equipment, weather restraints, etc.). 88-Not Attempted due to Medical Conditions or Safety Concerns. 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
[2021-06-17 08:00] VITALS: BP 123/61
[2021-06-17] MEDS ORDERED: inSUlin ASPART (NovoLOG) 1 UNIT/0.01 ML (CHARGE PER UNIT) SC SCH ×2 (08:00→12:00)
[2021-06-17] MEDS ORDERED: NON-FORMULARY MEDICATION 1 EA EA (Insulin Aspart (Novolog Flexpen) 20 UNITS) SQ SCH (08:00)
[2021-06-17] MEDS: DULoxetine 30 MG (CYMBALTA) CAP PO SCH (08:09)
[2021-06-17] MEDS: ASPIRIN E.C. 81 MG (ECOTRIN) TAB PO SCH (08:09)
[2021-06-17] MEDS: OXYBUTYNIN (DITROPAN) 5 MG TAB PO SCH ×3 (08:09→21:35)
[2021-06-17] MEDS: ROSUVASTATIN 20 MG (CRESTOR) TABLET PO SCH (08:09)
[2021-06-17] MEDS: PANTOPRAZOLE 40 MG (PROTONIX) TAB PO SCH (08:09)
[2021-06-17] MEDS: ENOXAPARIN 40 MG/0.4 ML (LOVENOX) SYR SC SCH (08:12)
[2021-06-17] MEDS: DOCUSATE SODIUM 100 MG (COLACE) CAP PO SCH ×2 (08:12→21:36)
[2021-06-17] MEDS: polyethylene glycoL POWDER 17 GM (MIRALAX) PACK PO SCH ×2 (08:12→21:36)
[2021-06-17] MEDS: SENNA W/DOCUSATE (SENOKOT S) TABLET PO SCH ×2 (08:12→21:35)
[2021-06-17] MEDS: FENOFIBRATE 134 MG (LOFIBRA) CAPSULE PO SCH (08:17)
[2021-06-17] MEDS ORDERED: NON-FORMULARY MEDICATION 1 EA EA (Multivitamin 1 EACH) PO SCH (09:00)
[2021-06-17] MEDS ORDERED: NON-FORMULARY MEDICATION 1 EA EA (Duloxetine HCl 60 MG) PO SCH (09:00)
[2021-06-17] MEDS ORDERED: INSULIN DEGLUDEC 50 UNIT SQ SCH (09:00)
[2021-06-17] MEDS ORDERED: NON-FORMULARY MEDICATION 1 EA EA (Fenofibrate Nanocrystallized (Fenofibrate) 145 MG) PO SCH (09:00)
--- NOTE | 2021-06-17 09:00 | Occupational Therapy Eval ---
OT Evaluation-General/PLF Medical Diagnosis Admission Date Jun 16, 2021 at 15:14 Medical Diagnosis: Debility following Craniotomy Onset Date: Jun 04, 2021 Therapy Diagnosis Therapy Diagnosis: reduced safety, balance, adls Height/Weight Height (Feet): 5 Height (Inches): 3.50 Weight (Pounds): 179 Precautions Precautions/Isolations: Fall Prevention, Standard Precautions Referral Physician: Genesis Referral Reason: Evaluation/Treatment Medical History Pertinent Medical History: COPD, DM, HTN Additional Medical History HLD, UTI Current History Pt presented from with multifocal brain metastases s/p suboccipital craniotomy for R cerebellar brain tumor resection. Pt reports that she lives in a home with an apartment on the 2nd floor (where pt resides) and an apartment on the first floor (where pt's ex- resides). She is supervision/sba for all adls. She reports baseline balance issues. She does not use any AD for mobility but instead will furniture/wall surf. Her caregiver lives across the street and assist with all iadls and transportation. Pt reports a sedentary lifestyle as she sits and plays on her computer all day. Reviewed History: Yes Social History Home: Apartment (2nd floor) Current Living Status: Alone (Ex- lives in downstairs apartment) ADL-Prior Level of Function SCALE: Activities may be completed with or without assistive devices. 3-Jyyftaajgs-svxiywf completes the activity by him/herself with no assistance from a helper. 5-Set-up or Clean-up Assistance-helper sets up or cleans up; patient completes activity. [place] assists only prior to or following the activity. 4-Supervision or Touching Assistance-helper provides verbal cues and/or touchin g/steadying and/or contact guard assistance as patient completes activity. Assistance may be provided throughout the activity or intermittently. 3-Partial/Moderate Assistance-helper does LESS THAN HALF the effort. [place] lifts, holds or supports trunk or limbs, but provides less than half the effort. 2-Substantial/Maximal Assistance-helper does MORE THAN HALF the effort. [place] lifts or holds trunk or limbs and provides more than half the effort. 8-Plytozeos-huapvq does ALL the effort. Patient does none of the effort to complete the activity. Or, the assistance of 2 or more helpers is required for the patient to complete the activity. If activity was not attempted, code reason: 7-Patient Refused. 9-Not Applicable-not attempted and the patient did not perform the activity before the current illness, exacerbation or injury. 10-Not Attempted due to Environmental Limitations-(lack of equipment, weather restraints, etc.). 88-Not Attempted due to Medical Conditions or Safety Concerns. Self Care: Needed Some Help (supervision/sba) Functional Cognition: Independent DME/Equipment: Bath Chair, Grab Bars, Shower, Tub/Shower Drive Self: No OT Current Status Subjective Pt denies pain, agreeable to evaluation. Appearance Pt left sitting in recliner, all needs within reach. RN informed. Mental Status/Objective Patient Orientation: Person, Place, Situation Current Glasses/Contacts: Yes Hearing Aids: No Dentures/Partials: Yes (Does not wear them) Hand Dominance: Left Upper Extremity ROM WNL Upper Extremity Coordination Impaired R finger to nose. Pt reports this is baseline. Upper Extremity Strength Not formally tested, anticipate at least 3+/5 grossly, R appears slightly weaker when compared to Left. Pt reports this is baseline. ADL-Treatment Eating (QC): 5 Oral Hygiene (QC): 4 Shower/Bathe Self (QC): 4 Upper Body Dressing (QC): 4 (Min a with sports bra-baseline) Lower Body Dressing (QC): 4 On/Off Footwear (QC): 5 Toileting Hygiene (QC): 4 Pt sitting on EOB at therapy arrival. Sit<>stand: SBA. She ambulated with GUIDE DOMESTIC TOUR/CGA to/from bathroom. Pt is easily distracted and will often look back to talk to the therapist while walking. When this occurs, she becomes more unsteady but does not have any significant LOB. Pt reports this is normal gait for her as she has had balance issues since a young age. Shower performed; majority in sitting. Close supervision for balance safety when standing to wash lorelei area. Pt again is easily distracted and requires several reminder cues to initiate washing each individual body part. No physical assistance required to wash. Clothing donned seated on shower bench. Min a only to initiate zipper on front of sports bra secondary to poor coordination with R hand. Pt states she has assist with this at home. No effort when threading feet into LB clothing. Supervision when standing to manage clothing over hips. She stood at the sink for oral care, close sup/CGA for safety only. Poor safety awareness yet unsure how close this is to baseline. Education OT Patient Education: Correct positioning, Energy conservation, Modified ADL techniques, Progress toward Goal/Update tx plan, Purpose of tx/functional a ctivities, Rehab process, Safety issues, Transfer techniques Teaching Recipient: Patient Teaching Methods: Demonstration, Discussion Response to Teaching: Verbalize Understanding, Return Demonstration, Reinforcement Needed OT Short Term Goals Short Term Goals Time Frame: Jun 22, 2021 Eatin Oral hygiene: 5 Toileting hygiene: 5 Shower/bathe self: 5 Upper body dressin Lower body dressin Putting on/taking off footwear: 5 OT Storage Solutions Architect Goals Nursing Home Goals Time Frame: Jun 26, 2021 Eating (QC): 6 Oral Hygiene (QC): 6 Toileting Hygiene (QC): 6 Shower/Bathe Self (QC): 6 Upper Body Dressing (QC): 6 Lower Body Dressing (QC): 6 On/Off Footwear (QC): 6 1=Demonstrate adherence to instructed precautions during ADL tasks. 2=Patient will verbalize/demonstrate understanding of assistive devices/modifications for ADL. 3=Patient will improve strength/tolerance for activity to enable patient to perform ADL's. Anticipate short stay. Pt reports that she is better than her baseline. OT Education/Plan Problem List/Assessment Assessment: Decreased Activ Tolerance, Decreased Safety Aware, Decreased UE Strength, Impaired Cognition, Impaired Funct Balance, Impaired Self-Care Skills Discharge Recommendations Plan/Recommendations: Continue POC Therapy Discharge Recommendati: Homemaker Support, Home & Family Treatment Plan/Plan of Care Treatment,Training & Education: Yes Patient would benefit from OT for education, treatment and training to promote independence in ADL's, mobility, safety and/or upper extremity function for ADL's. Plan of Care: ADL Retraining, Cognitive Retraining, Functional Mobility, Group Exercise/Act as Ind, UE Funct Exercise/Act Treatment Duration: Jun 26, 2021 Frequency: At least 5 of 7 days/Wk (IRF) Estimated Hrs Per Day: 1.5 hours per day Agreement: Yes Time/GCodes Start Time: 07:40 (0900) Stop Time: 08:00 (1000) Total Time Billed (hr/min): 80 Billed Treatment Time 2 visits EVL (20 min) ADL x4 (60 min) Rourk,Jenna OT Jun 17, 2021 09:00
--- NOTE | 2021-06-17 09:10 | ST Cognitive Linguistic Eval ---
Speech Evaluation-General Medical Diagnosis Debility following Craniotomy Onset Date: Jun 04, 2021 Therapy Diagnosis Therapy Diagnosis: Mild Neurocognitive Impairment Precautions Precautions: Fall Precautions/Isolations: Fall Prevention, Standard Precautions Referral Referring Physician: Dr. 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 Reviewed History: Yes Social History Current Living Status: Alone (Ex- lives in downstairs apartment) Speech PLF-Current Status Prior Level of Function The patient denied recent changes, concerns, or difficulties with her cognition, speech, language or swallowing. The patient stated she is able to fluently communicate her wants and needs to the staff and others. Subjective The patient is seated upright in bed, awake and alert upon entrance to the patient's room by the clinician. The patient greeted the clinician appropriately and was agreeable to participation in the cognitive linguistic evaluation. The patient remained in good spirits and cooperated fully throughout the assessment. Language Eval: Auditory Comprehends Simple Yes/No Ques: Functional Indent/Objects [place]: Functional Ident/Pics in [place]: Functional Follows 1-Step Commands: Functional Follows Complex Directions: Functional Follows General Conversations: Functional Language Eval: Verbal Language Completes Spontaneous Greeting: Functional Produces Auto, Serial Info: Functional Imitates Simple Words/Phrases: Functional Word Finding: Functional Requests Basic Needs: Functional States Basic Personal Info: Functional Expresses Complex Ideas: Functional Language Evaluation: Reading Follows Simple Written Direct: Functional Language Evaluation: Writing Writes to Simple Dictation: Functional Cognitive Patient Orientation The patient was independently oriented to self, location, month, day of week, date, and year. Objective Cognitive Domain Attention: Moderate (The patient requires frequent redirection to task and topic. ) Memory: WNL Problem Solving: Functional Executive Functions: WNL Visuospatial Skills: WNL Composite Severity Rating: Mild Clock Drawing Severity Rating: WNL Objective Formal/Standardized Tests [facility] Mental Status ([facility]) Results The patient demonstrated a result of +24/30 on the UMS correlating to a mild neurocognitive deficit per scoring grid. Oral Motor/Speech Production The patient does not display dysarthria or apraxia of speech throughout the e valuation. The patient is 100% intelligible in known and unknown contexts. The patient displays mildly reduced articulatory precision secondary to her edentulous state. Impression The patient displays a mild neurocognitive impairment, most notably in the areas of attention. The patient required frequent redirection to task and topic as well as repetition of instructions. The patient does appear to be (and reported by the patient) at her baseline function. As the patient is at baseline, the clinician does not suspect large cognitive gains, however, reinforcement of physical therapy and occupational therapy safety goals can be accomplished. Speech Patient Assess Expression of Ideas/Wants: Exhibits (3) Understanding Verbal Content: Usually Understands (3) Brief Interview-Mental Status: Yes Repetition of Three Words: Three (3) Temporal Orientation: Year: Correct (3) Temporal Orientation: Month: Accurate within 5 days(2) Temporal Orientation: Day: Correct (1) Recall : Wear to say "Sock": Yes, no cue required (2) Recall : Color: Yes, no cue required (2) Recall : Bed: Yes, no cue required (2) Memory/Recall Ability: Current season, That he or she is in a hsp/hsp unit Speech Short Term Goals Short Term Goals Short Term Goals 1. The patient will demonstrate 80% accuracy with memory exercises, independently. 2. The patient will recall safety precautions/fall precautions with 80% accuracy, independently. Time Frame-STG: One Week. Speech Nursing Home Goals Clinical Veterinarian Goals 1. The patient will display improved cognitive linguistic skills for safe discharge to the least restrictive environment. Time Frame: Two Weeks. Speech-Plan Patient/Family Goals Patient/Family Goals: The patient wishes to discharge to [place] with her ex- and reside in the second story of the apartment. Treatment Plan Speech Therapy Treatment Plan: Continue Plan of Care Treatment Duration: Jul 01, 2021 Frequency: 3 times per week (Three to five times per week. ) Estimated Hrs Per Day: .5 hour per day Rehab Potential: Fair Pt/Family Agrees to Plan: Yes Safety Risks/Education Teaching Recipient: Patient Teaching Methods: Discussion Response to Teaching: Reinforcement Needed Education Topics Provided: Results of SLUMS, Speech Pathology Goals of Treatment Time Speech Therapy Time In: 08:30 Speech Therapy Time Out: 09:00 Total Billed Time: 30 Billed Treatment Time 1, SPSNDCOMP, SLTS No MELLY,CARL ST Jun 17, 2021 09:09
--- NOTE | 2021-06-17 10:29 | Physical Therapy Evaluation ---
PT Evaluation-General Medical Diagnosis Admission Date Jun 16, 2021 at 15:14 Medical Diagnosis: Debility following Craniotomy Onset Date: Jun 04, 2021 Therapy Diagnosis Therapy Diagnosis: Weakness, debility Height/Weight Height (Feet): 5 Height (Inches): 3.50 Weight (Pounds): 179 Precautions Precautions/Isolations: Fall Prevention, Standard Precautions Referral Physician: Genesis Reason for Referral: Evaluation/Treatment Medical History Pertinent Medical History: COPD, DM, HTN Additional Medical History emphysema, hyperlipidemia, Schizophrenia, fatty liver, small cell carcinoma of the lungs, metastatic cerebellar tumor, GERD, diverticulosis, anxiety Current History Patient presents to IRF after having brain tumor removed. Reviewed History: Yes Social History Home: Apartment (2nd floor) Current Living Status: Alone (Ex- lives in downstairs apartment) Entry Into Home: Ramp PT Steps Inside Home: 12 Patient reports that she lives in upstairs apartment with her ex that lives on first level. Prior Prior Level of Function SCALE: Activities may be completed with or without assistive devices. 5-Hnajhxfqee-gexdvli completes the activity by him/herself with no assistance from a helper. 5-Set-up or Clean-up Assistance-helper sets up or cleans up; patient completes activity. [place] assists only prior to or following the activity. 4-Supervision or Touching Assistance-helper provides verbal cues and/or touching/steadying and/or contact guard assistance as patient completes activity. Assistance may be provided throughout the activity or intermittently. 3-Partial/Moderate Assistance-helper does LESS THAN HALF the effort. [place] lifts, holds or supports trunk or limbs, but provides less than half the effort. 2-Substantial/Maximal Assistance-helper does MORE THAN HALF the effort. [place] lifts or holds trunk or limbs and provides more than half the effort. 9-Jhvnhcama-gkriay does ALL the effort. Patient does none of the effort to complete the activity. Or, the assistance of 2 or more helpers is required for the patient to complete the activity. If activity was not attempted, code reason: 7-Patient Refused. 9-Not Applicable-not attempted and the patient did not perform the activity before the current illness, exacerbation or injury. 10-Not Attempted due to Environmental Limitations-(lack of equipment, weather restraints, etc.). 88-Not Attempted due to Medical Conditions or Safety Concerns. Bed Mobility: 6 Transfers (B,C,W/C): 6 Gait: 6 Stairs: 6 Indoor Mobility (Ambulation): Independent Stairs: Independent Prior Devices Use: None PT Evaluation-Current Subjective Patient presents sitting in her chair and agrees to participate in physical therapy. Objective Patient Orientation: Person, Place, Situation ROM/Strength ROM Lower Extremities WFL Strength Lower Extremities 4/5 bilaterally knee flex and ext 3+/5 hip flexion strength bilaterally Integumentary/Posture Bowel Incontinence: No Bladder Incontinence: No Sensory Vision: Wears Glasses Hearing: Functional Hand Dominance: Left Sensation Right Lower Extremit: Intact Sensation Left Lower Extremity: Intact Transfers Roll Left & Right (QC): 6 Sit to Lying (QC): 6 Lying to Sitting/Side of Bed(Q: 6 Sit to Stand (QC): 4 Chair/Fzb-fg-Zcpue Xfer(QC): 4 Toilet Transfer (QC): 4 Car Transfer (QC): 4 Patient required CGA for steadiness with sit to stand, car transfer, and toilet transfer. Patient is independent for bed mobility. Gait Does the Patient Walk?: Yes Mode of Locomotion: Walk Anticipated Mode of Locomotion: Walk Walk 10 feet (QC): 4 Walk 50 ft with 2 Turns(QC): 4 Walk 150 ft (QC): 4 Walking 10ft/uneven surface-QC: 3 Gait Assistive Device: FWW Comments/Gait Description Patient required CGA for ambulation and min assist for uneven surface ambulation. Patient had slightly more unsteadiness on uneven surface and required verbal cues for walker advancement with ambulation. Wheelchair Training Does the Pt Use a Wheelchair?: No Wheel 50 ft with 2 turns (QC): 09 Wheel 150 ft (QC): 09 Stairs #of Steps: 12 1 Step (curb) (QC): 3 4 Steps (QC): 3 12 Steps (QC): 3 Patient required min assist for stairs due to unsteadiness. Patient used bilateral hand rails while climbing the stairs. Balance Sitting Static: Normal Sitting Dynamic: Normal Standing Static: Normal Standing Dynamic: Fair Picking up an Object (QC): 3 Special Test Comments Patient required min assist for balance while reaching to milk pickup truck driver an object off the ground. Assessment/Needs Patient performed bed mobility, transfers, ambulation, and stairs during therapy session. Patient had minimal fatigue during exercises. Patient required cues for proper ambulation with the walker and balance corrections while walking on uneven surface and reaching to milk pickup truck driver an object. Patient requires skilled therapy to increase balance and endurance to return home alone and return to [place]. Rehab Potential: Fair PT Short Term Goals Short Term Goals Time Frame: Jun 24, 2021 Roll Left & Right: 6 Sit to lyin Lying to sitting on side of be: 6 Sit to stand: 4 (SBA) Chair/wsd-yu-qyyvf transfer: 4 (SBA) Toilet transfer: 4 (SBA) Car transfer: 4 (SBA) Walk 10 feet: 4 (SBA) Walk 50 feet with two turns: 4 (SBA) Walk 150 feet: 4 (SBA) Walking 10ft on uneven surface: 4 (SBA) 1 step (curb): 4 (CGA) 4 steps: 4 12 steps: 4 (CGA) Picking up objects: 4 (CGA) Does pt use a wc or scooter: No PT Dial Maker Goals Dial Maker Goals PT Dial Maker Goals Time Frame: Jul 08, 2021 Roll Left & Right (QC): 6 Sit to Lying (QC): 6 Lying-Sitting on Side/Bed(QC): 6 Sit to Stand (QC): 6 Chair/Fce-ff-Rvoir Xfer(QC): 6 Toilet Transfer (QC): 6 Car Transfer (QC): 6 Does the Patient Walk: Yes Walk 10 feet (QC): 6 Walk 50ft with 2 Turns (QC): 6 Walk 150 ft (QC): 6 Walking 10ft on Uneven Surface: 6 1 Step (curb) (QC): 6 4 Steps (QC): 6 12 Steps (QC): 6 Picking up an Object (QC): 6 Does the Pt use WC or Scooter?: No Wheel 50 feet with 2 turns (QC: 09 Wheel 150 feet: 09 PT Plan Problem List Problem List: Activity Tolerance, Functional Strength, Safety, Balance, Gait, Transfer, ROM Treatment/Plan Treatment Plan: Continue Plan of Care Treatment Plan: Concurrent Therapy, Education, Functional Activity Mackenzie, Functional Strength, Group Therapy, Gait, Safety, Therapeutic Exercise, Transfers Treatment Duration: Jul 08, 2021 Frequency: At least 5 of 7 days/Wk (IRF) Estimated Hrs Per Day: 1.5 hours per day Patient and/or Family Agrees t: Yes Safety Risks/Education Patient Education: Gait Training, Transfer Techniques, Steps, Correct Positioning, Safety Issues Teaching Recipient: Patient Teaching Methods: Discussion Response to Teaching: Reinforcement Needed Discharge Recommendations Plan Patient will require endurance training, balance training, strengthening, and increased safety awareness to return home at [facility]. Therapy Discharge Recommendati: Home & Family, Post Acute PT Time/GCodes Time In: 1000 Time Out: 1025 Total Billed Treatment Time: 25 Total Billed Treatment 1 Visit EVMod 15 FA 10' RADHA STEVENS PT Jun 17, 2021 10:29
--- NOTE | 2021-06-17 14:00 | Physical Therapy Daily Note ---
PT Daily Note-Current Subjective Pt sitting in recliner upon arrival. Pt is asking to use BR. Pain Location: No Pain Reported Mental Status Patient Orientation: Person, Confused Transfers SCALE: Activities may be completed with or without assistive devices. 8-Qyizypoabc-xacrfca completes the activity by him/herself with no assistance from a helper. 5-Set-up or Clean-up Assistance-helper sets up or cleans up; patient completes activity. [place] assists only prior to or following the activity. 4-Supervision or Touching Assistance-helper provides verbal cues and/or touching/steadying and/or contact guard assistance as patient completes activity. Assistance may be provided throughout the activity or intermittently. 3-Partial/Moderate Assistance-helper does LESS THAN HALF the effort. [place] lifts, holds or supports trunk or limbs, but provides less than half the effort. 2-Substantial/Maximal Assistance-helper does MORE THAN HALF the effort. [place] lifts or holds trunk or limbs and provides more than half the effort. 7-Vhwzibedk-mmbobi does ALL the effort. Patient does none of the effort to complete the activity. Or, the assistance of 2 or more helpers is required for the patient to complete the activity. If activity was not attempted, code reason: 7-Patient Refused. 9-Not Applicable-not attempted and the patient did not perform the activity before the current illness, exacerbation or injury. 10-Not Attempted due to Environmental Limitations-(lack of equipment, weather restraints, etc.). 88-Not Attempted due to Medical Conditions or Safety Concerns. Sit to Lying (QC): 5 Sit to Stand (QC): 4 Toilet Transfer (QC): 4 Weight Bearing Full Weight Bearing Full Weight Bearing Gait Training Does the Patient Walk?: Yes Distance: 250' x2 Walk 10 feet (QC): 4 Walk 50 ft with 2 Turns(QC): 4 Walk 150 ft (QC): 4 Gait Persons Needed: 1 Gait Assistive Device: Handheld Assist Pt walked w/LEAD CUSTOMER SERVICE REPRESENTATIVE instead of FWW as it is as safe as FWW and pt feels more comfortable w/LEAD CUSTOMER SERVICE REPRESENTATIVE. Exercises NuStep Minutes: 15 NuStep Workload: 4 Treatments TF to standing then amb. in hallway before using BR. Pt amb. in hallway and uses NuStep for 15m at WL 4. Pt amb. in hallway before returning to room to rest in bed. Bed alarm is set and all needs met, call light in hand. Assessment Current Status: Fair Progress Pt continues to remain impulsive and needs LEAD CUSTOMER SERVICE REPRESENTATIVE for walking. PT Short Term Goals Short Term Goals Time Frame: Jun 24, 2021 Roll Left & Right: 6 Sit to lyin Lying to sitting on side of be: 6 Sit to stand: 4 (SBA) Chair/gxf-kf-pwusd transfer: 4 (SBA) Toilet transfer: 4 (SBA) Car transfer: 4 (SBA) Walk 10 feet: 4 (SBA) Walk 50 feet with two turns: 4 (SBA) Walk 150 feet: 4 (SBA) Walking 10ft on uneven surface: 4 (SBA) 1 step (curb): 4 (CGA) 4 steps: 4 12 steps: 4 (CGA) Picking up objects: 4 (CGA) Does pt use a wc or scooter: No PT Half-Way Goals Case Reviewer Goals PT Half-Way Goals Time Frame: Jul 08, 2021 Roll Left & Right (QC): 6 Sit to Lying (QC): 6 Lying-Sitting on Side/Bed(QC): 6 Sit to Stand (QC): 6 Chair/Ecc-jx-Oywkm Xfer(QC): 6 Toilet Transfer (QC): 6 Car Transfer (QC): 6 Does the Patient Walk: Yes Walk 10 feet (QC): 6 Walk 50ft with 2 Turns (QC): 6 Walk 150 ft (QC): 6 Walking 10ft on Uneven Surface: 6 1 Step (curb) (QC): 6 4 Steps (QC): 6 12 Steps (QC): 6 Picking up an Object (QC): 6 Does the Pt use WC or Scooter?: No Wheel 50 feet with 2 turns (QC: 09 Wheel 150 feet: 09 PT Plan Problem List Problem List: Safety, Gait Treatment/Plan Treatment Plan: Continue Plan of Care Treatment Plan: Concurrent Therapy, Education, Functional Activity Mackenzie, Functional Strength, Group Therapy, Gait, Safety, Therapeutic Exercise, Transfers Treatment Duration: Jul 08, 2021 Frequency: At least 5 of 7 days/Wk (IRF) Estimated Hrs Per Day: 1.5 hours per day Patient and/or Family Agrees t: Yes Safety Risks/Education Patient Education: Gait Training, Correct Positioning, Safety Issues Teaching Recipient: Patient Teaching Methods: Discussion Response to Teaching: Verbalize Understanding Time/GCodes Time In: 1300 Time Out: 1345 Total Billed Treatment Time: 45 Total Billed Treatment 1, EX (15m), FA (15m) & GT (15m) JENELLE SHINE CLINICAL OB Jun 17, 2021 14:00
[2021-06-17 20:27] VITALS: BP 119/51
[2021-06-18] MEDS: MULTIVIT W/MINERALS TAB (THERAGRAN M) PO SCH (06:57)
--- NOTE | 2021-06-18 07:25 | Individualized Plan of Care ---
Individualized Plan of Care Rehab Nursing IPOC Order Admission Date Jun 16, 2021 at 15:14 Current Orders Orders Admission Order(Inpt,Obs,Sdc) (06/16/21 12:54) Vital Signs: Per Unit Policy ( ,16,00 (06/16/21 12:54) Saleem Barney (06/16/21 12:54) Sequential Compression Device (06/16/21 12:54) Sheet Metal Erector-Inpt Rehab Con (06/16/21 12:54) Rehab Nursing Orders-Ipoc (06/16/21 12:54) Physical Therapy Rehab Orders (06/16/21 12:54) Occupational Therapy Rehab Ord (06/16/21 12:54) Speech Therapy Rehab Orders (06/16/21 12:54) Cbc With Automated Diff (06/17/21 06:00) Comprehensive Metabolic Panel (06/17/21 06:00) Precautions (Aru) (06/16/21 12:54) Seizure Precautions (06/16/21 12:54) Weekly Weight WEEK (06/16/21 12:54) Rehab-Intensity Of Therapy (06/16/21 12:54) Initiate Admission Nursing Pro .admission (06/16/21 12:54) Alprazolam Tablet (Xanax Tablet) (06/16/21 13:00) Calcium Carbonate Chew Tablet (Antacid C (06/16/21 13:00) Docusate Sodium Capsule (Colace Capsule) (06/16/21 21:00) Docusate Sodium Capsule (Colace Capsule) (06/16/21 13:00) Bisacodyl Suppository (Dulcolax Supposit (06/16/21 13:00) Lactulose Oral Solution (Enulose Oral So (06/16/21 13:00) Na Phos/Na Biphos Enema (Fleet Enema Dk (06/16/21 13:00) Guaifenesin/Codeine Syrup (Robitussin Ac (06/16/21 13:00) Loperamide Tablet (Imodium Tablet) (06/16/21 13:00) Melatonin Tablet (Melatonin Tablet) (06/16/21 13:00) Polyethylene Glycol Powder Pkt (Miralax (06/16/21 21:00) Ondansetron Oral Dissolve Tab (Zofran (06/16/21 13:00) Senna S Tablet (Senokot S Tablet) (06/16/21 21:00) Acetaminophen Tablet/Caplet (Tylenol T (06/16/21 13:00) Code/Resuscitation (06/16/21 12:54) Initiate Admission Nursing Pro .admission (06/16/21 12:54) Cho 60g/M 1snack (16-2000 Eddie) (06/16/21 Dinner) Albuterol Pre-Mix Nebs (Rt) (Proventil (06/16/21 18:30) Aspirin Enteric Coated Tablet (Ecotrin T (06/17/21 09:00) Dexamethasone Tablet (Decadron Tablet) (06/17/21 08:00) Oxybutynin Tablet (Ditropan Tablet) (06/16/21 21:00) Pantoprazole Tablet (Protonix Tablet) (06/17/21 09:00) Rosuvastatin Tablet (Crestor Tablet) (06/17/21 09:00) Senna S Tablet (Senokot S Tablet) (06/16/21 18:30) (Nf) Acetaminophen (Tylenol) (06/16/21 18:30) (Nf) Duloxetine Hcl (06/17/21 09:00) (Nf) Fenofibrate Nanocrystallized (Fenof (06/17/21 09:00) (Nf) Flaxseed Oil (06/16/21 21:00) (Nf) Insulin Aspart (Novolog Flexpen) (06/17/21 08:00) (Nf) Insulin Aspart (Novolog Flexpen) (06/16/21 18:30) (Nf) Insulin Degludec (Tresiba Flextouch (06/17/21 09:00) (Nf) Multivitamin (06/17/21 09:00) (Nf) Semaglutide (Ozempic) (06/16/21 18:30) Svn Small Volume Nebulizer (06/16/21 18:22) Enoxaparin Injection (Lovenox Injectio (06/17/21 09:00) Duloxetine Capsule (Cymbalta Capsule) (06/17/21 09:00) Fenofibrate,Micronized Capsule (Lofibra (06/17/21 09:00) Therapeutic Multivitamin Tab (Vitamins, (06/17/21 07:00) Insulin Aspart (Novolog) (Novolog (Charg (06/17/21 08:00) Insulin Aspart (Novolog) (Novolog (Charg (06/17/21 12:00) Insulin Determir (Per Unit) (Levemir (Pe (06/17/21 09:00) Insulin Determir (Per Unit) (Levemir (Pe (06/16/21 22:30) Accucheck Achs ACHS (06/17/21 07:18) Patient Visit (06/17/21 ) Speech Sound Lang Comp (06/17/21 ) Treat. Speech/Lang/Voice (06/17/21 ) Nursing Communication (Order) (06/17/21 13:07) Patient Visit (06/17/21 ) Pt Eval Moderate Complexity (06/17/21 ) Functional Activities, Ea 15 (06/17/21 ) Patient Visit (06/17/21 ) Exercise Therap, Ea 15 Min (06/17/21 ) Functional Activities, Ea 15 (06/17/21 ) Gait Training, Ea 15 Min (06/17/21 ) Insulin Aspart (Novolog) (Novolog (Charg (06/18/21 12:00) Insulin Determir (Per Unit) (Levemir (Pe (06/18/21 09:00) Insulin Aspart (Novolog) (Novolog (Charg (06/18/21 12:15) Insulin Determir (Per Unit) (Levemir (Pe (06/18/21 21:00) Patient Visit (06/18/21 ) Exercise Therap, Ea 15 Min (06/18/21 ) Functional Activities, Ea 15 (06/18/21 ) Gait Training, Ea 15 Min (06/18/21 ) Rehab Nursing Orders: Ongoing Assess. of Cognitive Status, Ongoing Assess. of Function Status, Bladder Management, Bladder Scan, Bladder Training, Bowel Management, Bowel Training, Disease Management & Educaiton, DVT Prophylaxis, Fall Prevention, Fluid/Electrolyte/Nutrition Mgmt, Infection Prevention, Medication Management & Education, Management of Risks & Complications, Management of Skin Intergrity, Nutrition Management, Pain Management, Patient/Family Support, Safety Management, Wound Management Intensity of Therapy to be met Patient to be seen: Min.3h per day/5 of 7d PT IPOC Problem List: Safety, Gait Treatment Plan: Continue Plan of Care Concurrent Therapy, Education, Functional Activity [place], Functional Strength, Group Therapy, Gait, Safety, Therapeutic Exercise, Transfers Treatment Duration: Jul 08, 2021 Frequency: At least 5 of 7 days/Wk (IRF) Estimated Hrs Per Day: 1.5 hours per day OT IPOC Problems: Impaired Cognition OT Treatment, Training and Edu: Yes Plan of Care: ADL Retraining, Cognitive Retraining, Functional Mobility, Group Exercise/Act as Ind, UE Funct Exercise/Act Treatment Duration: Jun 26, 2021 Frequency: At least 5 of 7 days/Wk (IRF) Estimated Hrs Per Day: 1.[address] IPOC Speech Therapy Treatment Plan: Continue Plan of Care Treatment Duration: Jul 01, 2021 Frequency: 3 times per week (Three to five times per week. ) Estimated Hrs Per Day: .5 hour per day Sheet Metal Erector/Case Mgmt Sheet Metal Erector/Case Managemen: Discharge Planning Dietitian/Midwife Practitioner Dietitian/Midwife Practitioner to monitor nutritional status and make changes and/or recommendations as needed and work with speech pathology on dietary upgrades as the occur. Physician IPOC Medical Issues being managed closely and that require the 24 hour availability of a physician: Recent craniotomy cancer now with labile sugars due to steroid administration for cerebral edema will need close monitoring especially considering her impulsivity Medical Issues: Bowel/Bladder Function, DVT Prophylaxis, Falls Precautions, Fluid/Electrolyte/Nutrition Balance, Infection Protection, Pain Management, Wound Care Brief Synthesis of Preadmission Screen, Post-Admission Evaluation, and Therapy Evaluations: PT and OT will focus on decreasing impulsivity with the use of assistive devices and speech therapy will help with cognitive skills and cues Medical Prognosis: Good Anticipated Length of Stay: 10 days MADHURI MCCRARY DO Jun 18, 2021 07:25
--- NOTE | 2021-06-18 07:25 | PM&R Progress Note ---
Subjective HPI/CC On Admission Date Seen by Provider: Jun 18, 2021 Time Seen by Provider: 12:15 Subjective/Events-last exam 06/18/2021: Betty garcia working pretty well Bowels moved Ex- at the bedside who will take care of her when she goes home Labile sugars due to steroids 06/17/2021: Pt is doing well Betty Garcia will be brought in by the family Bowels moved yesterday and they were loose Checked meds and labs No pain is reported Labile sugars and in the afternoon she was very low so I adjusted insulin dramatically Review of Systems General: Fatigue, Malaise Objective Exam Vital Signs Vital Signs Date Time Temp Pulse Resp B/P (MAP) Pulse Ox O2 Delivery O2 Flow Rate FiO2 06/18/21 21:45 96 Room Air 06/18/21 19:52 36.4 88 16 111/70 (84) 06/17/21 22:49 21 Capillary Refill : General Appearance: No Apparent Distress, WD/WN, Anxious, Chronically ill HEENT: PERRL/EOMI, Normal ENT Inspection, Pharynx Normal Neck: Full Range of Motion, Normal Inspection, Non Tender, Supple, Carotid Bruit Respiratory: Chest Non Tender, Lungs Clear, No Accessory Muscle Use, No Respiratory Distress, Decreased Breath Sounds Cardiovascular: Regular Rate, Rhythm, No Edema, No Gallop, No JVD, No Murmur, Normal Peripheral Pulses Gastrointestinal: Normal Bowel Sounds, No Organomegaly, No Pulsatile Mass, Non Tender, Soft Back: Normal Inspection, No CVA Tenderness, No Vertebral Tenderness Extremity: Normal Capillary Refill, Normal Inspection, Normal Range of Motion, Non Tender, No Calf Tenderness, No Pedal Edema Neurologic/Psychiatric: Alert, Oriented x3, No Motor/Sensory Deficits, tile burner II- XII Norm as Tested, Abnormal Gait, Depressed Affect, Motor Weakness (Generalized weakness) Skin: Normal Color, Warm/Dry Lymphatic: No Adenopathy Results/Procedures Lab Patient resulted labs reviewed. FIM Transfers Therapy Code Descriptions/Definitions Functional [place] Measure: 0=Not Assessed/NA 4=Minimal Assistance 1=Total Assistance 5=Supervision or Setup 2=Maximal Assistance 6=Modified [place] 3=Moderate Assistance 7=Complete IndependenceSCALE: Activities may be completed with or without assistive devices. 4-Odbzwahehv-fzlddka completes the activity by him/herself with no assistance from a helper. 5-Set-up or Clean-up Assistance-helper sets up or cleans up; patient completes activity. [place] assists only prior to or following the activity. 4-Supervision or Touching Assistance-helper provides verbal cues and/or touching/steadying and/or contact guard assistance as patient completes activity. Assistance may be provided throughout the activity or intermittently. 3-Partial/Moderate Assistance-helper does LESS THAN HALF the effort. [place] lifts, holds or supports trunk or limbs, but provides less than half the effort. 2-Substantial/Maximal Assistance-helper does MORE THAN HALF the effort. [place] lifts or holds trunk or limbs and provides more than half the effort. 7-Tclffjypj-mjlduu does ALL the effort. Patient does none of the effort to co mplete the activity. Or, the assistance of 2 or more helpers is required for the patient to complete the activity. If activity was not attempted, code reason: 7-Patient Refused. 9-Not Applicable-not attempted and the patient did not perform the activity before the current illness, exacerbation or injury. 10-Not Attempted due to Environmental Limitations-(lack of equipment, weather restraints, etc.). 88-Not Attempted due to Medical Conditions or Safety Concerns. Roll Left to Right (QC): 6 Sit to Lying (QC): 5 Sit to Stand (QC): 4 Chair/Rts-yh-Cvxdj Xfer(QC): 4 Car Transfer (QC): 4 Gait Training Does the Patient Walk?: Yes Distance: 250' x2 Walk 10 feet (QC): 4 Walk 50 ft with 2 Turns(QC): 4 Walk 150 ft (QC): 4 Walking 10ft/uneven surface-QC: 3 Gait Persons Needed: 1 Gait Assistive Device: Handheld Assist Wheelchair Training Does the Pt Use a Wheelchair?: No Wheel 50 ft with 2 turns (QC): 09 Wheel 150 ft (QC): 09 Type of Wheelchair: N/A Stair Training #of Steps: 12 1 Step (curb) (QC): 3 4 Steps (QC): 3 12 Steps (QC): 3 Balance Picking up an Object (QC): 3 ADL-Treatment Eating (QC): 5 Oral Hygiene (QC): 4 Shower/Bathe Self (QC): 4 Upper Body Dressing (QC): 4 (Min a with sports bra-baseline) Lower Body Dressing (QC): 4 On/Off Footwear (QC): 5 Toileting Hygiene (QC): 4 Assessment/Plan Assessment and Plan Assess & Plan/Chief Complaint Assessment: Debility Cognitive deficit Small cell lung cancer 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
[2021-06-18 07:39] VITALS: BP 135/60
[2021-06-18] MEDS: ENOXAPARIN 40 MG/0.4 ML (LOVENOX) SYR SC SCH (08:11)
[2021-06-18] MEDS: ROSUVASTATIN 20 MG (CRESTOR) TABLET PO SCH (08:12)
[2021-06-18] MEDS: DULoxetine 30 MG (CYMBALTA) CAP PO SCH (08:12)
[2021-06-18] MEDS: PANTOPRAZOLE 40 MG (PROTONIX) TAB PO SCH (08:12)
[2021-06-18] MEDS: ASPIRIN E.C. 81 MG (ECOTRIN) TAB PO SCH (08:12)
[2021-06-18] MEDS: OXYBUTYNIN (DITROPAN) 5 MG TAB PO SCH ×3 (08:12→21:23)
[2021-06-18] MEDS: FENOFIBRATE 134 MG (LOFIBRA) CAPSULE PO SCH (08:12)
[2021-06-18] MEDS: SENNA W/DOCUSATE (SENOKOT S) TABLET PO SCH ×2 (08:13→21:23)
[2021-06-18] MEDS: DOCUSATE SODIUM 100 MG (COLACE) CAP PO SCH ×2 (08:13→21:24)
[2021-06-18] MEDS: polyethylene glycoL POWDER 17 GM (MIRALAX) PACK PO SCH ×2 (08:14→21:25)
--- NOTE | 2021-06-18 09:55 | Occupational Ther Daily Note ---
OT Current Status-Daily Note Subjective Denies pain, reports feeling "better than ever" Appearance Pt left sitting in recliner, all needs within reach. ADL-Treatment Therapy Code Descriptions/Definitions Functional [place] Measure: 0=Not Assessed/NA 4=Minimal Assistance 1=Total Assistance 5=Supervision or Setup 2=Maximal Assistance 6=Modified [place] 3=Moderate Assistance 7=Complete IndependenceSCALE: Activities may be completed with or without assistive devices. 1-Ozuephnbsh-rutugis completes the activity by him/herself with no assistance from a helper. 5-Set-up or Clean-up Assistance-helper sets up or cleans up; patient completes activity. [place] assists only prior to or following the activity. 4-Supervision or Touching Assistance-helper provides verbal cues and/or touching/steadying and/or contact guard assistance as patient completes activity. Assistance may be provided throughout the activity or intermittently. 3-Partial/Moderate Assistance-helper does LESS THAN HALF the effort. [place] lifts, holds or supports trunk or limbs, but provides less than half the effort. 2-Substantial/Maximal Assistance-helper does MORE THAN HALF the effort. [place] lifts or holds trunk or limbs and provides more than half the effort. 4-Kgxkuxzys-mvcdoc does ALL the effort. Patient does none of the effort to complete the activity. Or, the assistance of 2 or more helpers is required for the patient to complete the activity. If activity was not attempted, code reason: 7-Patient Refused. 9-Not Applicable-not attempted and the patient did not perform the activity before the current illness, exacerbation or injury. 10-Not Attempted due to Environmental Limitations-(lack of equipment, weather restraints, etc.). 88-Not Attempted due to Medical Conditions or Safety Concerns. Eating (QC): 6 Oral Hygiene (QC): 4 Upper Body Dressing (QC): 4 (min a with sports bra-baseline) Lower Body Dressing (QC): 4 (supervision) On/Off Footwear: 6 Toileting Hygiene (QC): 4 Toilet Transfer (QC): 4 Pt resting in bed at OT arrival. Indep with bed mobility. Sit<>stand: Supervision. Pt ambulated within room with hand held assist. Improved balance notable this date but pt still has mild episodes of unsteadiness with distr actions. She retrieved clothes while seated on chair placed in front of closet doors. Clothing donned seated on EOB. Assist only with donning sports bra but pt receives assist with this at home. Supervision for safety as she stood to manage pants up to waist, no LOB, extra time to fasten button due to tight fit. Pt often goes into long tangents and requires several cues for redirection back to task. Anticipate pt ability to complete tasks faster if she was alone. Grooming tasks performed standing at the sink with close supervision for balance. Slight SOB with exertion, education on energy conservation and pacing, especially with mobility. Education OT Patient Education: Correct positioning, Energy conservation, Modified ADL techniques, Progress toward Goal/Update tx plan, Purpose of tx/functional activities, Safety issues Teaching Recipient: Patient Teaching Methods: Discussion Response to Teaching: Verbalize Understanding, Reinforcement Needed OT Short Term Goals Short Term Goals Time Frame: Jun 22, 2021 Eatin Oral hygiene: 5 Toileting hygiene: 5 Shower/bathe self: 5 Upper body dressin Lower body dressin Putting on/taking off footwear: 5 OT Generator Operator Goals Prison Goals Time Frame: Jun 26, 2021 Eating (QC): 6 Oral Hygiene (QC): 6 Toileting Hygiene (QC): 6 Shower/Bathe Self (QC): 6 Upper Body Dressing (QC): 6 Lower Body Dressing (QC): 6 On/Off Footwear (QC): 6 1=Demonstrate adherence to instructed precautions during ADL tasks. 2=Patient will verbalize/demonstrate understanding of assistive devices/modifications for ADL. 3=Patient will improve strength/tolerance for activity to enable patient to perform ADL's. OT Education/Plan Problem List/Assessment Assessment: Decreased Activ Tolerance, Decreased Safety Aware, Decreased UE Strength, Impaired Coordination, Impaired Funct Balance (pt with history of balance deficit) Discharge Recommendations Plan/Recommendations: Continue POC Therapy Discharge Recommendati: Home & Family Treatment Plan/Plan of Care Treatment,Training & Education: Yes Patient would benefit from OT for education, treatment and training to promote independence in ADL's, mobility, safety and/or upper extremity function for ADL's. Plan of Care: ADL Retraining, Cognitive Retraining, Functional Mobility, Group Exercise/Act as Ind, UE Funct Exercise/Act Treatment Duration: Jun 26, 2021 Frequency: At least 5 of 7 days/Wk (IRF) Estimated Hrs Per Day: 1.5 hours per day Agreement: Yes Rehab Potential: Fair Time/GCodes Start Time: 09:00 Stop Time: 10:00 Total Time Billed (hr/min): 60 Billed Treatment Time 1 visit ADL x4 Jenna Lauren OT Jun 18, 2021 09:55
--- NOTE | 2021-06-18 10:55 | Physical Therapy Daily Note ---
PT Daily Note-Current Subjective Patient in recliner pre tx, agrees to PT, has no complaints of pain. Appearance Patient in bed post tx with nurse call, phone, tray, all needs met, bed alarm on. Mental Status Patient Orientation: Person, Confused, Place, Situation Transfers SCALE: Activities may be completed with or without assistive devices. 6-Ujerjottoy-kgywoie completes the activity by him/herself with no assistance from a helper. 5-Set-up or Clean-up Assistance-helper sets up or cleans up; patient completes activity. [place] assists only prior to or following the activity. 4-Supervision or Touching Assistance-helper provides verbal cues and/or touching/steadying and/or contact guard assistance as patient completes activity. Assistance may be provided throughout the activity or intermittently. 3-Partial/Moderate Assistance-helper does LESS THAN HALF the effort. [place] lifts, holds or supports trunk or limbs, but provides less than half the effort. 2-Substantial/Maximal Assistance-helper does MORE THAN HALF the effort. [place] lifts or holds trunk or limbs and provides more than half the effort. 9-Rklcsqlim-cjtndm does ALL the effort. Patient does none of the effort to complete the activity. Or, the assistance of 2 or more helpers is required for the patient to complete the activity. If activity was not attempted, code reason: 7-Patient Refused. 9-Not Applicable-not attempted and the patient did not perform the activity before the current illness, exacerbation or injury. 10-Not Attempted due to Environmental Limitations-(lack of equipment, weather restraints, etc.). 88-Not Attempted due to Medical Conditions or Safety Concerns. Roll Left & Right (QC): 6 Sit to Lying (QC): 6 Sit to Stand (QC): 4 Chair/Pjm-ye-Ytjrr Xfer(QC): 4 Weight Bearing Full Weight Bearing Full Weight Bearing Gait Training Distance: 400', 150' Walk 10 feet (QC): 4 Walk 50 ft with 2 Turns(QC): 4 Walk 150 ft (QC): 4 Gait Persons Needed: 1 Gait Assistive Device: FWW CGA, patient gets distracted easily, tends to hit things with her walker because she isn't paying attention. Needs steadying assist on occasion. Exercises Standing: Heel/toe raises, 3 way Ex=Flex, Abd, Ext, Mini squats Standing Reps: 20 NuStep Minutes: 15 NuStep Workload: 4 Treatments bed mobility and transfers, ambulation, LE strengthening Assessment Current Status: Fair Progress needs CGA for transfers and ambulation PT Short Term Goals Short Term Goals Time Frame: Jun 24, 2021 Roll Left & Right: 6 Sit to lyin Lying to sitting on side of be: 6 Sit to stand: 4 (SBA) Chair/rxx-pb-uxicc transfer: 4 (SBA) Toilet transfer: 4 (SBA) Car transfer: 4 (SBA) Walk 10 feet: 4 (SBA) Walk 50 feet with two turns: 4 (SBA) Walk 150 feet: 4 (SBA) Walking 10ft on uneven surface: 4 (SBA) 1 step (curb): 4 (CGA) 4 steps: 4 12 steps: 4 (CGA) Picking up objects: 4 (CGA) Does pt use a wc or scooter: No PT Intermediate Goals Intermediate Goals PT Lab Aide Goals Time Frame: Jul 08, 2021 Roll Left & Right (QC): 6 Sit to Lying (QC): 6 Lying-Sitting on Side/Bed(QC): 6 Sit to Stand (QC): 6 Chair/Dcd-gc-Afaak Xfer(QC): 6 Toilet Transfer (QC): 6 Car Transfer (QC): 6 Does the Patient Walk: Yes Walk 10 feet (QC): 6 Walk 50ft with 2 Turns (QC): 6 Walk 150 ft (QC): 6 Walking 10ft on Uneven Surface: 6 1 Step (curb) (QC): 6 4 Steps (QC): 6 12 Steps (QC): 6 Picking up an Object (QC): 6 Does the Pt use WC or Scooter?: No Wheel 50 feet with 2 turns (QC: 09 Wheel 150 feet: 09 PT Plan Problem List Problem List: Activity Tolerance, Functional Strength, Safety, Balance, Gait, Transfer, ROM Treatment/Plan Treatment Plan: Continue Plan of Care Treatment Plan: Concurrent Therapy, Education, Functional Activity [place], Functional Strength, Group Therapy, Gait, Safety, Therapeutic Exercise, Transfers Treatment Duration: Jul 08, 2021 Frequency: At least 5 of 7 days/Wk (IRF) Estimated Hrs Per Day: 1.5 hours per day Patient and/or Family Agrees t: Yes Safety Risks/Education Patient Education: Gait Training, Transfer Techniques, Correct Positioning, Safety Issues Teaching Recipient: Patient Teaching Methods: Demonstration, Discussion Response to Teaching: Reinforcement Needed Time/GCodes Time In: 1000 Time Out: 1100 Total Billed Treatment Time: 60 Total Billed Treatment 1 visit EX 30' FA 30' RADHA STEVENS PT Jun 18, 2021 10:55
[2021-06-18] MEDS ORDERED: inSUlin ASPART (NovoLOG) 1 UNIT/0.01 ML (CHARGE PER UNIT) SC SCH (12:00)
--- NOTE | 2021-06-18 12:02 | Occupational Ther Daily Note ---
OT Current Status-Daily Note Subjective Pt agreeable to treatment. Appearance Left sitting upright in bed, ex in the room. ADL-Treatment Therapy Code Descriptions/Definitions Functional [place] Measure: 0=Not Assessed/NA 4=Minimal Assistance 1=Total Assistance 5=Supervision or Setup 2=Maximal Assistance 6=Modified [place] 3=Moderate Assistance 7=Complete IndependenceSCALE: Activities may be completed with or without assistive devices. 2-Lehqdgrizz-fqsfoco completes the activity by him/herself with no assistance from a helper. 5-Set-up or Clean-up Assistance-helper sets up or cleans up; patient completes activity. [place] assists only prior to or following the activity. 4-Supervision or Touching Assistance-helper provides verbal cues and/or touching/steadying and/or contact guard assistance as patient completes activity. Assistance may be provided throughout the activity or intermittently. 3-Partial/Moderate Assistance-helper does LESS THAN HALF the effort. [place] lifts, holds or supports trunk or limbs, but provides less than half the effort. 2-Substantial/Maximal Assistance-helper does MORE THAN HALF the effort. [place] lifts or holds trunk or limbs and provides more than half the effort. 7-Tmmqjmksy-xnnwvt does ALL the effort. Patient does none of the effort to complete the activity. Or, the assistance of 2 or more helpers is required for the patient to complete the activity. If activity was not attempted, code reason: 7-Patient Refused. 9-Not Applicable-not attempted and the patient did not perform the activity before the current illness, exacerbation or injury. 10-Not Attempted due to Environmental Limitations-(lack of equipment, weather restraints, etc.). 88-Not Attempted due to Medical Conditions or Safety Concerns. Other Treatment Pt sleeping at OT arrival, easy to waken.Pt participated in UE exercises with goal to promote increased strength, coordination and proprioception needed for functional tasks. No resistance utilized on RUE secondary to weakness. 2# utilized with LUE but pt may need to downsize to 1# to ensure proper technique. Pt is easily distracted and requires consistent verbal and tactile cues to continue with proper form throughout set. All movements completed through full range. 10x2 all planes. Education OT Patient Education: Correct positioning, Energy conservation, Exercise program, Safety issues Teaching Recipient: Patient Teaching Methods: Demonstration, Discussion Response to Teaching: Verbalize Understanding, Reinforcement Needed OT Short Term Goals Short Term Goals Time Frame: Jun 22, 2021 Eatin Oral hygiene: 5 Toileting hygiene: 5 Shower/bathe self: 5 Upper body dressin Lower body dressin Putting on/taking off footwear: 5 OT Potato Chip Frier Goals Intermediate Goals Time Frame: Jun 26, 2021 Eating (QC): 6 Oral Hygiene (QC): 6 Toileting Hygiene (QC): 6 Shower/Bathe Self (QC): 6 Upper Body Dressing (QC): 6 Lower Body Dressing (QC): 6 On/Off Footwear (QC): 6 1=Demonstrate adherence to instructed precautions during ADL tasks. 2=Patient will verbalize/demonstrate understanding of assistive devices/modifications for ADL. 3=Patient will improve strength/tolerance for activity to enable patient to perform ADL's. OT Education/Plan Problem List/Assessment Assessment: Decreased Activ Tolerance, Decreased Safety Aware, Decreased UE Strength, Impaired Funct Balance Discharge Recommendations Plan/Recommendations: Continue POC Treatment Plan/Plan of Care Treatment,Training & Education: Yes Patient would benefit from OT for education, treatment and training to promote independence in ADL's, mobility, safety and/or upper extremity function for ADL's. Plan of Care: ADL Retraining, Cognitive Retraining, Functional Mobility, Group Exercise/Act as Ind, UE Funct Exercise/Act Treatment Duration: Jun 26, 2021 Frequency: At least 5 of 7 days/Wk (IRF) Estimated Hrs Per Day: 1.5 hours per day Agreement: Yes Rehab Potential: Fair Time/GCodes Start Time: 11:30 Stop Time: 12:00 Total Time Billed (hr/min): 30 Billed Treatment Time 1 visit EX Jenna Castellanos OT Jun 18, 2021 12:02
--- NOTE | 2021-06-18 13:01 | Physical Therapy Daily Note ---
PT Daily Note-Current Subjective Patient in bed pre tx, agrees to PT, has no complaints of pain. Appearance Patient in bed post tx with nurse call, phone, tray, bed alarm on. Mental Status Patient Orientation: Person, Place, Situation Transfers SCALE: Activities may be completed with or without assistive devices. 1-Myvuzektvk-hbcleej completes the activity by him/herself with no assistance from a helper. 5-Set-up or Clean-up Assistance-helper sets up or cleans up; patient completes activity. [place] assists only prior to or following the activity. 4-Supervision or Touching Assistance-helper provides verbal cues and/or touching/steadying and/or contact guard assistance as patient completes activity. Assistance may be provided throughout the activity or intermittently. 3-Partial/Moderate Assistance-helper does LESS THAN HALF the effort. [place] lifts, holds or supports trunk or limbs, but provides less than half the effort. 2-Substantial/Maximal Assistance-helper does MORE THAN HALF the effort. [place] lifts or holds trunk or limbs and provides more than half the effort. 3-Qyzhfctws-skmjuk does ALL the effort. Patient does none of the effort to complete the activity. Or, the assistance of 2 or more helpers is required for the patient to complete the activity. If activity was not attempted, code reason: 7-Patient Refused. 9-Not Applicable-not attempted and the patient did not perform the activity before the current illness, exacerbation or injury. 10-Not Attempted due to Environmental Limitations-(lack of equipment, weather restraints, etc.). 88-Not Attempted due to Medical Conditions or Safety Concerns. Roll Left & Right (QC): 6 Sit to Lying (QC): 6 Lying to Sitting/Side of Bed(Q: 6 Sit to Stand (QC): 4 Chair/Lmr-zv-Jvxqm Xfer(QC): 4 SBA for transfers Weight Bearing Full Weight Bearing Full Weight Bearing Gait Training Does the Patient Walk?: Yes Distance: 400'x2 Walk 10 feet (QC): 4 Walk 50 ft with 2 Turns(QC): 4 Walk 150 ft (QC): 4 Gait Persons Needed: 1 Gait Assistive Device: FWW slow ambulation, SBA, has a bit of a wandering path, needs cues to stay on task, gets distracted easily, rest break between bouts of ambulation Treatments bed mobility and transfers, ambulation Assessment Current Status: Fair Progress patient performs transfers and ambulation with SBA, improved from CGA but needs close supervision and cues for safety PT Short Term Goals Short Term Goals Time Frame: Jun 24, 2021 Roll Left & Right: 6 Sit to lyin Lying to sitting on side of be: 6 Sit to stand: 4 (SBA) Chair/yfd-ns-kccih transfer: 4 (SBA) Toilet transfer: 4 (SBA) Car transfer: 4 (SBA) Walk 10 feet: 4 (SBA) Walk 50 feet with two turns: 4 (SBA) Walk 150 feet: 4 (SBA) Walking 10ft on uneven surface: 4 (SBA) 1 step (curb): 4 (CGA) 4 steps: 4 12 steps: 4 (CGA) Picking up objects: 4 (CGA) Does pt use a wc or scooter: No PT Architecture Department Chair Goals Architecture Department Chair Goals PT Intermediate Goals Time Frame: Jul 08, 2021 Roll Left & Right (QC): 6 Sit to Lying (QC): 6 Lying-Sitting on Side/Bed(QC): 6 Sit to Stand (QC): 6 Chair/Sbf-jj-Ehler Xfer(QC): 6 Toilet Transfer (QC): 6 Car Transfer (QC): 6 Does the Patient Walk: Yes Walk 10 feet (QC): 6 Walk 50ft with 2 Turns (QC): 6 Walk 150 ft (QC): 6 Walking 10ft on Uneven Surface: 6 1 Step (curb) (QC): 6 4 Steps (QC): 6 12 Steps (QC): 6 Picking up an Object (QC): 6 Does the Pt use WC or Scooter?: No Wheel 50 feet with 2 turns (QC: 09 Wheel 150 feet: 09 PT Plan Problem List Problem List: Activity Tolerance, Functional Strength, Safety, Balance, Gait, Transfer, ROM Treatment/Plan Treatment Plan: Continue Plan of Care Treatment Plan: Concurrent Therapy, Education, Functional Activity [place], Functional Strength, Group Therapy, Gait, Safety, Therapeutic Exercise, Transfers Treatment Duration: Jul 08, 2021 Frequency: At least 5 of 7 days/Wk (IRF) Estimated Hrs Per Day: 1.5 hours per day Patient and/or Family Agrees t: Yes Safety Risks/Education Patient Education: Gait Training, Transfer Techniques, Correct Positioning, Safety Issues Teaching Recipient: Patient Teaching Methods: Demonstration, Discussion Response to Teaching: Reinforcement Needed Time/GCodes Time In: 1230 Time Out: 1300 Total Billed Treatment Time: 30 Total Billed Treatment 1 visit GT 30' RADHA STEVENS PT Jun 18, 2021 13:01
[2021-06-18] MEDS: inSUlin ASPART (NovoLOG) 1 UNIT/0.01 ML (CHARGE PER UNIT) SC SCH ×2 (13:03→17:25)
[2021-06-18 19:52] VITALS: BP 111/70
--- NOTE | 2021-06-19 06:34 | PM&R Progress Note ---
Subjective HPI/CC On Admission Date Seen by Provider: Jun 19, 2021 Time Seen by Provider: 11:30 Subjective/Events-last exam 06/19/2021: Patient doing really well Ex- at the bedside No concerns Blood sugars are labile 06/18/2021: Betty jenkins working pretty well Bowels moved Ex- at the bedside who will take care of her when she goes home Labile sugars due to steroids 06/17/2021: Pt is doing well Freeyle Jose will be brought in by the family Bowels moved yesterday and they were loose Checked meds and labs No pain is reported Labile sugars and in the afternoon she was very low so I adjusted insulin dramatically Review of Systems General: Fatigue, Malaise Neurological: Weakness, Incoordination Objective Exam Vital Signs Vital Signs Date Time Temp Pulse Resp B/P (MAP) Pulse Ox O2 Delivery O2 Flow Rate FiO2 06/19/21 21:00 Room Air 06/19/21 20:00 36.3 86 20 133/57 (82) 94 06/17/21 22:49 21 Capillary Refill : General Appearance: No Apparent Distress, WD/WN, Anxious, Chronically ill HEENT: PERRL/EOMI, Normal ENT Inspection, Pharynx Normal Neck: Full Range of Motion, Normal Inspection, Non Tender, Supple, Carotid Bruit Respiratory: Chest Non Tender, Lungs Clear, No Accessory Muscle Use, No Respiratory Distress, Decreased Breath Sounds Cardiovascular: Regular Rate, Rhythm, No Edema, No Gallop, No JVD, No Murmur, Normal Peripheral Pulses Gastrointestinal: Normal Bowel Sounds, No Organomegaly, No Pulsatile Mass, Non Tender, Soft Back: Normal Inspection, No CVA Tenderness, No Vertebral Tenderness Extremity: Normal Capillary Refill, Normal Inspection, Normal Range of Motion, Non Tender, No Calf Tenderness, No Pedal Edema Neurologic/Psychiatric: Alert, Oriented x3, No Motor/Sensory Deficits, child development assistant II- XII Norm as Tested, Abnormal Gait, Depressed Affect, Motor Weakness (Generalized weakness) Skin: Normal Color, Warm/Dry Lymphatic: No Adenopathy Results/Procedures Lab Patient resulted labs reviewed. FIM Transfers Therapy Code Descriptions/Definitions Functional [place] Measure: 0=Not Assessed/NA 4=Minimal Assistance 1=Total Assistance 5=Supervision or Setup 2=Maximal Assistance 6=Modified [place] 3=Moderate Assistance 7=Complete IndependenceSCALE: Activities may be completed with or without assistive devices. 1-Ukjvucbirp-vvzyjut completes the activity by him/herself with no assistance from a helper. 5-Set-up or Clean-up Assistance-helper sets up or cleans up; patient completes activity. [place] assists only prior to or following the activity. 4-Supervision or Touching Assistance-helper provides verbal cues and/or touching/steadying and/or contact guard assistance as patient completes activity. Assistance may be provided throughout the activity or intermittently. 3-Partial/Moderate Assistance-helper does LESS THAN HALF the effort. [place] lifts, holds or supports trunk or limbs, but provides less than half the effort. 2-Substantial/Maximal Assistance-helper does MORE THAN HALF the effort. [place] lifts or holds trunk or limbs and provides more than half the effort. 4-Hciloouow-xmedbo does ALL the effort. Patient does none of the effort to complete the activity. Or, the assistance of 2 or more helpers is required for the patient to complete the activity. If activity was not attempted, code reason: 7-Patient Refused. 9-Not Applicable-not attempted and the patient did not perform the activity before the current illness, exacerbation or injury. 10-Not Attempted due to Environmental Limitations-(lack of equipment, weather restraints, etc.). 88-Not Attempted due to Medical Conditions or Safety Concerns. Roll Left to Right (QC): 6 Sit to Lying (QC): 6 Sit to Stand (QC): 4 Chair/Tfo-vt-Vgqun Xfer(QC): 4 Car Transfer (QC): 4 Gait Training Does the Patient Walk?: Yes Distance: 400'x2 Walk 10 feet (QC): 4 Walk 50 ft with 2 Turns(QC): 4 Walk 150 ft (QC): 4 Walking 10ft/uneven surface-QC: 3 Gait Persons Needed: 1 Gait Assistive Device: FWW Wheelchair Training Does the Pt Use a Wheelchair?: No Wheel 50 ft with 2 turns (QC): 09 Wheel 150 ft (QC): 09 Type of Wheelchair: N/A Stair Training #of Steps: 12 1 Step (curb) (QC): 3 4 Steps (QC): 3 12 Steps (QC): 3 Balance Picking up an Object (QC): 3 ADL-Treatment Eating (QC): 6 Oral Hygiene (QC): 4 Shower/Bathe Self (QC): 4 Upper Body Dressing (QC): 4 (min a with sports bra-baseline) Lower Body Dressing (QC): 4 (supervision) On/Off Footwear (QC): 6 Toileting Hygiene (QC): 4 Toilet Transfer (QC): 4 Assessment/Plan Assessment and Plan Assess & Plan/Chief Complaint Assessment: Debility Cognitive deficit Small cell lung cancer 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 Type 2 diabetes fco-cg-keeqoor due to steroids HTN HLD COPD Fatty liver disease Anxiety Mental illness with personality disorder Hypoglycemic episode 06/17/2021 Impulsive behavior so she is a fall risk Plan: Aggressive rehab Radiation treatment Supportive halfway meds 06/17/2021: Adjust insulin due to hypoglycemia Supportive care 06/18/2021: Supportive care Insulin Monitor sugars 06/19/2021: Monitor sugars (1) Cerebellar mass Status: Acute (2) Personality disorder (3) Diabetes mellitus (4) Former smoker (5) Ataxia Status: Acute (6) Cerebral edema Status: Acute MADHURI MCCRARY DO Jun 19, 2021 06:34
[2021-06-19] MEDS: inSUlin ASPART (NovoLOG) 1 UNIT/0.01 ML (CHARGE PER UNIT) SC SCH ×3 (06:48→17:27)
[2021-06-19] MEDS: MULTIVIT W/MINERALS TAB (THERAGRAN M) PO SCH (06:48)
[2021-06-19] MEDS: DULoxetine 30 MG (CYMBALTA) CAP PO SCH (07:26)
[2021-06-19] MEDS: ENOXAPARIN 40 MG/0.4 ML (LOVENOX) SYR SC SCH (07:26)
[2021-06-19] MEDS: polyethylene glycoL POWDER 17 GM (MIRALAX) PACK PO SCH ×2 (07:27→23:47)
[2021-06-19] MEDS: SENNA W/DOCUSATE (SENOKOT S) TABLET PO SCH ×2 (07:27→23:46)
[2021-06-19] MEDS: ASPIRIN E.C. 81 MG (ECOTRIN) TAB PO SCH (07:27)
[2021-06-19] MEDS: ROSUVASTATIN 20 MG (CRESTOR) TABLET PO SCH (07:27)
[2021-06-19] MEDS: OXYBUTYNIN (DITROPAN) 5 MG TAB PO SCH ×3 (07:27→23:46)
[2021-06-19] MEDS: DOCUSATE SODIUM 100 MG (COLACE) CAP PO SCH ×2 (07:27→23:46)
[2021-06-19] MEDS: PANTOPRAZOLE 40 MG (PROTONIX) TAB PO SCH (07:27)
[2021-06-19] MEDS: FENOFIBRATE 134 MG (LOFIBRA) CAPSULE PO SCH (07:31)
[2021-06-19 08:00] VITALS: BP 118/56
--- NOTE | 2021-06-19 10:03 | Occupational Ther Daily Note ---
OT Current Status-Daily Note Subjective Pt denies pain, agreeable to shower. Appearance Pt left sitting in recliner, all needs within reach. ADL-Treatment Therapy Code Descriptions/Definitions Functional [place] Measure: 0=Not Assessed/NA 4=Minimal Assistance 1=Total Assistance 5=Supervision or Setup 2=Maximal Assistance 6=Modified [place] 3=Moderate Assistance 7=Complete IndependenceSCALE: Activities may be completed with or without assistive devices. 5-Pzdpqgzcwq-ingyhjq completes the activity by him/herself with no assistance from a helper. 5-Set-up or Clean-up Assistance-helper sets up or cleans up; patient completes activity. [place] assists only prior to or following the activity. 4-Supervision or Touching Assistance-helper provides verbal cues and/or touching/steadying and/or contact guard assistance as patient completes ac tivity. Assistance may be provided throughout the activity or intermittently. 3-Partial/Moderate Assistance-helper does LESS THAN HALF the effort. [place] lifts, holds or supports trunk or limbs, but provides less than half the effort. 2-Substantial/Maximal Assistance-helper does MORE THAN HALF the effort. [place] lifts or holds trunk or limbs and provides more than half the effort. 8-Yznmhgazi-mfpprp does ALL the effort. Patient does none of the effort to complete the activity. Or, the assistance of 2 or more helpers is required for the patient to complete the activity. If activity was not attempted, code reason: 7-Patient Refused. 9-Not Applicable-not attempted and the patient did not perform the activity before the current illness, exacerbation or injury. 10-Not Attempted due to Environmental Limitations-(lack of equipment, weather restraints, etc.). 88-Not Attempted due to Medical Conditions or Safety Concerns. Oral Hygiene (QC): 5 Shower/Bathe Self (QC): 4 Upper Body Dressing (QC): 5 Lower Body Dressing (QC): 5 On/Off Footwear: 6 Toileting Hygiene (QC): 6 Toilet Transfer (QC): 6 Shower performed, supervision/sba for safety when standing. Following washing [place] area/buttocks (in standing), she attempted to bend at waist to wash feet but exhibits slight unsteadiness. Post cue to sit, pt with improved independence/safety with task. No physical assistance required to wash body parts. Improved initiation this date to use soap. She dressed while seated on edge of bed. Assist only to fasten clasps on sports bra. Pt still requires cues to redirect back to task due to being easily distracted. Anticipate improved speed of task if no distractions/staff were present. Pt independent with sit<>stand transfers. Hand held assist with gait, per patients request. Balance does worsen slightly with distractions or when turning head. (anticipate this is baseline) Education OT Patient Education: Correct positioning, Energy conservation, Modified ADL techniques, Progress toward Goal/Update tx plan, Purpose of tx/functional activities, Safety issues Teaching Recipient: Patient Teaching Methods: Discussion Response to Teaching: Verbalize Understanding, Return Demonstration, Reinforcement Needed OT Short Term Goals Short Term Goals Time Frame: Jun 22, 2021 Eatin Oral hygiene: 5 Toileting hygiene: 5 Shower/bathe self: 5 Upper body dressin Lower body dressin Putting on/taking off footwear: 5 OT Health Program Analyst Goals Health Program Analyst Goals Time Frame: Jun 26, 2021 Eating (QC): 6 Oral Hygiene (QC): 6 Toileting Hygiene (QC): 6 Shower/Bathe Self (QC): 6 Upper Body Dressing (QC): 6 Lower Body Dressing (QC): 6 On/Off Footwear (QC): 6 1=Demonstrate adherence to instructed precautions during ADL tasks. 2=Patient will verbalize/demonstrate understanding of assistive devices/ modifications for ADL. 3=Patient will improve strength/tolerance for activity to enable patient to perform ADL's. OT Education/Plan Problem List/Assessment Assessment: Decreased Activ Tolerance, Decreased Safety Aware, Decreased UE Strength, Impaired Cognition, Impaired Funct Balance, Impaired Self-Care Skills Discharge Recommendations Plan/Recommendations: Continue POC Treatment Plan/Plan of Care Treatment,Training & Education: Yes Patient would benefit from OT for education, treatment and training to promote independence in ADL's, mobility, safety and/or upper extremity function for ADL's. Plan of Care: ADL Retraining, Cognitive Retraining, Functional Mobility, Group Exercise/Act as Ind, UE Funct Exercise/Act Treatment Duration: Jun 26, 2021 Frequency: At least 5 of 7 days/Wk (IRF) Estimated Hrs Per Day: 1.5 hours per day Agreement: Yes Rehab Potential: Fair Time/GCodes Start Time: 09:00 Stop Time: 10:15 Total Time Billed (hr/min): 75 Billed Treatment Time 1 visit ADL x5 Jenna Lauren OT Jun 19, 2021 10:03
--- NOTE | 2021-06-19 11:50 | Speech Therapy Daily Note ---
Speech Daily Progress Note Subjective Time Seen by Provider: 10:50 Pt's was present for the therapy session. Pt pleasant and cooperative for speech therapy. Objective The pt was talkative and feels like she is doing much better. She states her cognition has improved since her surgery. Pts reports he has noticed some increased confusion. He also states she was diagnosed with Alzheimers several years ago and has a caregiver with her at all times. He manages bills, medication and pt does not drive. Pt was oriented x4. Pt completed recall task with 90% accy. Pt recalled today's events and timeline of hospitalization with no difficulty. Assessment Assessment Current Status: Good Progress Treatment Plan Continue Plan of Care Speech Short Term Goals Short Term Goals Short Term Goals 1. The patient will demonstrate 80% accuracy with memory exercises, independently. 2. The patient will recall safety precautions/fall precautions with 80% accuracy, independently. Time Frame-STG: One Week. Speech Residential Goals Packager Goals 1. The patient will display improved cognitive linguistic skills for safe discharge to the least restrictive environment. Time Frame: Two Weeks. Speech-Plan Treatment Plan Speech Therapy Treatment Plan: Continue Plan of Care Treatment Duration: Jul 01, 2021 Frequency: 3 times per week (Three to five times per week. ) Estimated Hrs Per Day: .5 hour per day Rehab Potential: Fair Time Speech Therapy Time In: 10:50 Speech Therapy Time Out: 11:30 Billed Treatment Time 40 mins 1, ADAM SANON Jun 19, 2021 11:50
--- NOTE | 2021-06-19 12:06 | Physical Therapy Daily Note ---
PT Daily Note-Current Subjective Pt. is pleasant and talkative and agrees to Rx. States she is being treated so well here and has made remarkable progress Pain Location: No Pain Reported Mental Status Patient Orientation: Normal For Age Transfers SCALE: Activities may be completed with or without assistive devices. 2-Csumsrbtle-rdcdmrc completes the activity by him/herself with no assistance from a helper. 5-Set-up or Clean-up Assistance-helper sets up or cleans up; patient completes a ctivity. [place] assists only prior to or following the activity. 4-Supervision or Touching Assistance-helper provides verbal cues and/or touching/steadying and/or contact guard assistance as patient completes activity. Assistance may be provided throughout the activity or intermittently. 3-Partial/Moderate Assistance-helper does LESS THAN HALF the effort. [place] lifts, holds or supports trunk or limbs, but provides less than half the effort. 2-Substantial/Maximal Assistance-helper does MORE THAN HALF the effort. [place] lifts or holds trunk or limbs and provides more than half the effort. 1-Xheckjtqo-gecoas does ALL the effort. Patient does none of the effort to complete the activity. Or, the assistance of 2 or more helpers is required for the patient to complete the activity. If activity was not attempted, code reason: 7-Patient Refused. 9-Not Applicable-not attempted and the patient did not perform the activity before the current illness, exacerbation or injury. 10-Not Attempted due to Environmental Limitations-(lack of equipment, weather restraints, etc.). 88-Not Attempted due to Medical Conditions or Safety Concerns. Roll Left & Right (QC): 6 Sit to Lying (QC): 6 Lying to Sitting/Side of Bed(Q: 6 Sit to Stand (QC): 6 Chair/Hfz-kv-Iafll Xfer(QC): 6 Weight Bearing Full Weight Bearing Full Weight Bearing Gait Training Does the Patient Walk?: Yes Walk 10 feet (QC): 4 Walk 50 ft with 2 Turns(QC): 4 Walk 150 ft (QC): 4 Gait Persons Needed: 1 Gait Assistive Device: FWW pt. weaves about a little, crosses over with feet several times, needs instructed to stay in center of FWW for gait, no stephanie LOB 160 ft x 2 Wheelchair Training Does the Pt Use a Wheelchair?: No Exercises Supine Ex: Bridging, Ankle pumps, Quad Set, Rolling, Glut sets, Lower trunk rotation, Heel Slides, Short Arc Quads, Scooting, Straight leg raise, Hip abd/add Supine Reps: 20 NuStep Minutes: 10 NuStep Workload: 2 Assessment Current Status: Good Progress PT Short Term Goals Short Term Goals Time Frame: Jun 24, 2021 Roll Left & Right: 6 Sit to lyin Lying to sitting on side of be: 6 Sit to stand: 4 (SBA) Chair/rro-hy-knzmg transfer: 4 (SBA) Toilet transfer: 4 (SBA) Car transfer: 4 (SBA) Walk 10 feet: 4 (SBA) Walk 50 feet with two turns: 4 (SBA) Walk 150 feet: 4 (SBA) Walking 10ft on uneven surface: 4 (SBA) 1 step (curb): 4 (CGA) 4 steps: 4 12 steps: 4 (CGA) Picking up objects: 4 (CGA) Does pt use a wc or scooter: No PT Half-Way Goals Half-Way Goals PT Semi Automatic Sewing Machine Operator Goals Time Frame: Jul 08, 2021 Roll Left & Right (QC): 6 Sit to Lying (QC): 6 Lying-Sitting on Side/Bed(QC): 6 Sit to Stand (QC): 6 Chair/Ryp-fq-Jbbik Xfer(QC): 6 Toilet Transfer (QC): 6 Car Transfer (QC): 6 Does the Patient Walk: Yes Walk 10 feet (QC): 6 Walk 50ft with 2 Turns (QC): 6 Walk 150 ft (QC): 6 Walking 10ft on Uneven Surface: 6 1 Step (curb) (QC): 6 4 Steps (QC): 6 12 Steps (QC): 6 Picking up an Object (QC): 6 Does the Pt use WC or Scooter?: No Wheel 50 feet with 2 turns (QC: 09 Wheel 150 feet: 09 PT Plan Treatment/Plan Treatment Plan: Continue Plan of Care Treatment Plan: Concurrent Therapy, Education, Functional Activity [place], Functional Strength, Group Therapy, Gait, Safety, Therapeutic Exercise, Transfers Treatment Duration: Jul 08, 2021 Frequency: At least 5 of 7 days/Wk (IRF) Estimated Hrs Per Day: 1.5 hours per day Patient and/or Family Agrees t: Yes Safety Risks/Education Patient Education: Gait Training, Transfer Techniques, Reviewed Precautions, Correct Positioning, Safety Issues Teaching Recipient: Patient Teaching Methods: Demonstration, Discussion Response to Teaching: Verbalize Understanding, Return Demonstration, Reinforcement Needed Time/GCodes Time In: 1130 Time Out: 1205 Total Billed Treatment Time: 35 Total Billed Treatment 1,GT15m,EX20m STEPAN REBOLLAR DIGITAL ARCHIVIST Jun 19, 2021 12:06
--- NOTE | 2021-06-19 13:27 | Physical Therapy Daily Note ---
PT Daily Note-Current Subjective Pt. gladly agrees to Rx. No c/o pain etc. Pt. is talkative and laughs frequently Pain Location: No Pain Reported Mental Status Patient Orientation: Normal For Age Transfers SCALE: Activities may be completed with or without assistive devices. 2-Hnfgcqvuha-jycqyng completes the activity by him/herself with no assistance from a helper. 5-Set-up or Clean-up Assistance-helper sets up or cleans up; patient completes activity. [place] assists only prior to or following the activity. 4-Supervision or Touching Assistance-helper provides verbal cues and/or touching/steadying and/or contact guard assistance as patient completes activity. Assistance may be provided throughout the activity or intermittently. 3-Partial/Moderate Assistance-helper does LESS THAN HALF the effort. [place] lifts, holds or supports trunk or limbs, but provides less than half the effort. 2-Substantial/Maximal Assistance-helper does MORE THAN HALF the effort. [place] lifts or holds trunk or limbs and provides more than half the effort. 9-Xohkotgwk-iupcut does ALL the effort. Patient does none of the effort to complete the activity. Or, the assistance of 2 or more helpers is required for the patient to complete the activity. If activity was not attempted, code reason: 7-Patient Refused. 9-Not Applicable-not attempted and the patient did not perform the activity before the current illness, exacerbation or injury. 10-Not Attempted due to Environmental Limitations-(lack of equipment, weather restraints, etc.). 88-Not Attempted due to Medical Conditions or Safety Concerns. Sit to Stand (QC): 4 Car Transfer (QC): 6 sit to stand TRFs x 5 reps pt. with noted near LOB, plopping down into chair to prevent a fall. pt. was educated in safety and proper sit to stand using arms of chair Weight Bearing Full Weight Bearing Full Weight Bearing Gait Training Does the Patient Walk?: Yes Gait Assistive Device: FWW 165ft x 2 FWW, pt. needed instruction regarding position in FWW as pt. x2 had feet outside perimeter of FWW for turns Stair Training Stair Training: Handrails/: 2 handrails #of Steps: 4 4 Steps (QC): 4 Stairs: Pattern: Reciprocal Exercises Seated Therapy Exercises: Ankle pumps, Sit to stand, Long arc quads, Hip flexion, Hip abd/add Seated Reps: 12 Assessment Current Status: Good Progress cooperative, needs reminders for safety, somewhat impulsive PT Short Term Goals Short Term Goals Time Frame: Jun 24, 2021 Roll Left & Right: 6 Sit to lyin Lying to sitting on side of be: 6 Sit to stand: 4 (SBA) Chair/ujx-hb-kyfxy transfer: 4 (SBA) Toilet transfer: 4 (SBA) Car transfer: 4 (SBA) Walk 10 feet: 4 (SBA) Walk 50 feet with two turns: 4 (SBA) Walk 150 feet: 4 (SBA) Walking 10ft on uneven surface: 4 (SBA) 1 step (curb): 4 (CGA) 4 steps: 4 12 steps: 4 (CGA) Picking up objects: 4 (CGA) Does pt use a wc or scooter: No PT Shelter Goals Radiology Ct Technologist Goals PT Shelter Goals Time Frame: Jul 08, 2021 Roll Left & Right (QC): 6 Sit to Lying (QC): 6 Lying-Sitting on Side/Bed(QC): 6 Sit to Stand (QC): 6 Chair/Egk-ln-Wunbj Xfer(QC): 6 Toilet Transfer (QC): 6 Car Transfer (QC): 6 Does the Patient Walk: Yes Walk 10 feet (QC): 6 Walk 50ft with 2 Turns (QC): 6 Walk 150 ft (QC): 6 Walking 10ft on Uneven Surface: 6 1 Step (curb) (QC): 6 4 Steps (QC): 6 12 Steps (QC): 6 Picking up an Object (QC): 6 Does the Pt use WC or Scooter?: No Wheel 50 feet with 2 turns (QC: 09 Wheel 150 feet: 09 PT Plan Treatment/Plan Treatment Plan: Continue Plan of Care Treatment Plan: Concurrent Therapy, Education, Functional Activity [place], Functional Strength, Group Therapy, Gait, Safety, Therapeutic Exercise, Transfers Treatment Duration: Jul 08, 2021 Frequency: At least 5 of 7 days/Wk (IRF) Estimated Hrs Per Day: 1.5 hours per day Patient and/or Family Agrees t: Yes Safety Risks/Education Patient Education: Gait Training, Transfer Techniques, Steps, Correct Positioning, Safety Issues Teaching Recipient: Patient Teaching Methods: Demonstration, Discussion Response to Teaching: Verbalize Understanding, Return Demonstration, Reinforcement Needed Time/GCodes Time In: 1300 Time Out: 1330 Total Billed Treatment Time: 30 Total Billed Treatment 1,FA15m,GT15m STEPAN REBOLLAR SPOOL WINDER Jun 19, 2021 13:27
[2021-06-19 20:00] VITALS: BP 133/57
[2021-06-20] MEDS: MULTIVIT W/MINERALS TAB (THERAGRAN M) PO SCH (07:30)
[2021-06-20] MEDS: inSUlin ASPART (NovoLOG) 1 UNIT/0.01 ML (CHARGE PER UNIT) SC SCH ×3 (07:30→17:13)
--- NOTE | 2021-06-20 07:41 | PM&R Progress Note ---
Subjective HPI/CC On Admission Date Seen by Provider: Jun 20, 2021 Time Seen by Provider: 12:15 Subjective/Events-last exam 06/20/2021: Patient doing well Dulcolax suppository may be needed No pain is reported 06/19/2021: Patient doing really well Ex- at the bedside No concerns Blood sugars are labile 06/18/2021: Nahidyle jose working pretty well Bowels moved Ex- at the bedside who will take care of her when she goes home Labile sugars due to steroids 06/17/2021: Pt is doing well FreeStyle Jose will be brought in by the family Bowels moved yesterday and they were loose Checked meds and labs No pain is reported Labile sugars and in the afternoon she was very low so I adjusted insulin dramatically Review of Systems General: Fatigue, Malaise Objective Exam Vital Signs Vital Signs Date Time Temp Pulse Resp B/P (MAP) Pulse Ox O2 Delivery O2 Flow Rate FiO2 06/21/21 06:59 Room Air 06/20/21 20:00 36.0 84 18 105/56 (72) 98 06/17/21 22:49 21 Capillary Refill : General Appearance: No Apparent Distress, WD/WN, Anxious, Chronically ill HEENT: PERRL/EOMI, Normal ENT Inspection, Pharynx Normal Neck: Full Range of Motion, Normal Inspection, Non Tender, Supple, Carotid Bruit Respiratory: Chest Non Tender, Lungs Clear, No Accessory Muscle Use, No Respiratory Distress, Decreased Breath Sounds Cardiovascular: Regular Rate, Rhythm, No Edema, No Gallop, No JVD, No Murmur, Normal Peripheral Pulses Gastrointestinal: Normal Bowel Sounds, No Organomegaly, No Pulsatile Mass, Non Tender, Soft Back: Normal Inspection, No CVA Tenderness, No Vertebral Tenderness Extremity: Normal Capillary Refill, Normal Inspection, Normal Range of Motion, Non Tender, No Calf Tenderness, No Pedal Edema Neurologic/Psychiatric: Alert, Oriented x3, No Motor/Sensory Deficits, bread and pastry baker II- XII Norm as Tested, Abnormal Gait, Depressed Affect, Motor Weakness (Generalized weakness) Skin: Normal Color, Warm/Dry Lymphatic: No Adenopathy Results/Procedures Lab Patient resulted labs reviewed. FIM Transfers Therapy Code Descriptions/Definitions Functional [place] Measure: 0=Not Assessed/NA 4=Minimal Assistance 1=Total Assistance 5=Supervision or Setup 2=Maximal Assistance 6=Modified [place] 3=Moderate Assistance 7=Complete IndependenceSCALE: Activities may be completed with or without assistive devices. 7-Xacxidzsvh-bhnivqd completes the activity by him/herself with no assistance from a helper. 5-Set-up or Clean-up Assistance-helper sets up or cleans up; patient completes activity. [place] assists only prior to or following the activity. 4-Supervision or Touching Assistance-helper provides verbal cues and/or touching/steadying and/or contact guard assistance as patient completes activity. Assistance may be provided throughout the activity or intermittently. 3-Partial/Moderate Assistance-helper does LESS THAN HALF the effort. [place] lifts, holds or supports trunk or limbs, but provides less than half the effort. 2-Substantial/Maximal Assistance-helper does MORE THAN HALF the effort. [place] lifts or holds trunk or limbs and provides more than half the effort. 9-Lsapckbjf-qorvqg does ALL the effort. Patient does none of the effort to complete the activity. Or, the assistance of 2 or more helpers is required for the patient to complete the activity. If activity was not attempted, code reason: 7-Patient Refused. 9-Not Applicable-not attempted and the patient did not perform the activity before the current illness, exacerbation or injury. 10-Not Attempted due to Environmental Limitations-(lack of equipment, weather restraints, etc.). 88-Not Attempted due to Medical Conditions or Safety Concerns. Roll Left to Right (QC): 6 Sit to Lying (QC): 6 Sit to Stand (QC): 4 Chair/Rug-av-Sljgc Xfer(QC): 6 Car Transfer (QC): 6 Gait Training Does the Patient Walk?: Yes Distance: 400'x2 Walk 10 feet (QC): 4 Walk 50 ft with 2 Turns(QC): 4 Walk 150 ft (QC): 4 Walking 10ft/uneven surface-QC: 3 Gait Persons Needed: 1 Gait Assistive Device: FWW Wheelchair Training Does the Pt Use a Wheelchair?: No Wheel 50 ft with 2 turns (QC): 09 Wheel 150 ft (QC): 09 Type of Wheelchair: N/A Stair Training Stair Training: Handrails/: 2 handrails #of Steps: 4 1 Step (curb) (QC): 3 4 Steps (QC): 4 12 Steps (QC): 3 Stairs: Pattern: Reciprocal Balance Picking up an Object (QC): 3 ADL-Treatment Eating (QC): 6 Oral Hygiene (QC): 5 Shower/Bathe Self (QC): 4 Upper Body Dressing (QC): 5 Lower Body Dressing (QC): 5 On/Off Footwear (QC): 6 Toileting Hygiene (QC): 6 Toilet Transfer (QC): 6 Assessment/Plan Assessment and Plan Assess & Plan/Chief Complaint Assessment: Debility Cognitive deficit Small cell lung cancer 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 Type 2 diabetes ebw-me-udiafvj due to steroids HTN HLD COPD Fatty liver disease Anxiety Mental illness with personality disorder Hypoglycemic episode 06/17/2021 Impulsive behavior so she is a fall risk Plan: Aggressive rehab Radiation treatment Supportive intermediate meds 06/17/2021: Adjust insulin due to hypoglycemia Supportive care 06/18/2021: Supportive care Insulin Monitor sugars 06/19/2021: Monitor sugars 06/20/2021: Monitor sugars Bowel regimen (1) Cerebellar mass Status: Acute (2) Personality disorder (3) Diabetes mellitus (4) Former smoker (5) Ataxia Status: Acute (6) Cerebral edema Status: Acute MADHURI MCCRARY DO Jun 20, 2021 07:41
[2021-06-20 08:00] VITALS: BP 96/49
--- NOTE | 2021-06-20 08:33 | Occupational Ther Daily Note ---
OT Current Status-Daily Note Subjective Pt sleeping in bed, woke easily to name. Pt agrees to therapy. No c/o pain. Mental Status/Objective Patient Orientation: Person, Place, Time, Situation ADL-Treatment Pt declines shower today. Independent with eating. Pt agrees to sponge bath and change clothing for the day. Independent with toileting transfer and toileting. Ambulated with FWW to sink to complete hand washing, independently. Pt retrieved clothing using FWW, supervision. Pt sat in chair to reach clothes in lower drawers. Pt then transported back to recliner using FWW. Pt able to complete dressing upper/lower body and footwear by self. Independent with oral care. Therapy Code Descriptions/Definitions Functional [place] Measure: 0=Not Assessed/NA 4=Minimal Assistance 1=Total Assistance 5=Supervision or Setup 2=Maximal Assistance 6=Modified [place] 3=Moderate Assistance 7=Complete IndependenceSCALE: Activities may be completed with or without assistive devices. 0-Xnpidzrbjc-iohiqeh completes the activity by him/herself with no assistance from a helper. 5-Set-up or Clean-up Assistance-helper sets up or cleans up; patient completes activity. [place] assists only prior to or following the activity. 4-Supervision or Touching Assistance-helper provides verbal cues and/or touching/steadying and/or contact guard assistance as patient completes activity. Assistance may be provided throughout the activity or intermittently. 3-Partial/Moderate Assistance-helper does LESS THAN HALF the effort. [place] lifts, holds or supports trunk or limbs, but provides less than half the effort. 2-Substantial/Maximal Assistance-helper does MORE THAN HALF the effort. [place] lifts or holds trunk or limbs and provides more than half the effort. 6-Jugjxresp-grnrfv does ALL the effort. Patient does none of the effort to complete the activity. Or, the assistance of 2 or more helpers is required for the patient to complete the activity. If activity was not attempted, code reason: 7-Patient Refused. 9-Not Applicable-not attempted and the patient did not perform the activity b efore the current illness, exacerbation or injury. 10-Not Attempted due to Environmental Limitations-(lack of equipment, weather restraints, etc.). 88-Not Attempted due to Medical Conditions or Safety Concerns. Eating (QC): 6 Oral Hygiene (QC): 6 Upper Body Dressing (QC): 5 Lower Body Dressing (QC): 5 On/Off Footwear: 5 Toileting Hygiene (QC): 6 Toilet Transfer (QC): 6 Other Treatment Pt ambulated around 2nd floor using FWW with SBA for safety. Pt completed arm bike for 15 min at 15 shah resistance without breaks to increase B UE strength and activity tolerance. Pt then completed resistive clothespins placing 25 with L hand then due to incoordination and strength of R hand pt pulled pegs out and placed in designated area. Pt then ambulated to central bathing for education on difference between tub/shower and walk-in shower. Pt was unclear initially on which type she had at home. When attention was focused on tub/shower pt stated that she only had a 2" lip to step over for walk-in shower and has tub seat that she uses. Pt then ambulated back to room for toileting and oral care, see above note. After session, pt sitting in recliner with call light/phone in reach. Safety measures in place. All needs met. OT Short Term Goals Short Term Goals Time Frame: Jun 22, 2021 Eatin Oral hygiene: 5 Toileting hygiene: 5 Shower/bathe self: 5 Upper body dressin Lower body dressin Putting on/taking off footwear: 5 OT Rib Knitter Goals Rib Knitter Goals Time Frame: Jun 26, 2021 Eating (QC): 6 Oral Hygiene (QC): 6 Toileting Hygiene (QC): 6 Shower/Bathe Self (QC): 6 Upper Body Dressing (QC): 6 Lower Body Dressing (QC): 6 On/Off Footwear (QC): 6 1=Demonstrate adherence to instructed precautions during ADL tasks. 2=Patient will verbalize/demonstrate understanding of assistive devices/modifications for ADL. 3=Patient will improve strength/tolerance for activity to enable patient to perform ADL's. OT Education/Plan Problem List/Assessment Assessment: Decreased Activ Tolerance, Decreased UE Strength, Impaired Coordination, Impaired Self-Care Skills, Visual-Perceptual Deficit Discharge Recommendations Plan/Recommendations: Continue POC Treatment Plan/Plan of Care Patient would benefit from OT for education, treatment and training to promote independence in ADL's, mobility, safety and/or upper extremity function for ADL's. Plan of Care: ADL Retraining, Cognitive Retraining, Functional Mobility, Group Exercise/Act as Ind, UE Funct Exercise/Act Treatment Duration: Jun 26, 2021 Frequency: At least 5 of 7 days/Wk (IRF) Estimated Hrs Per Day: 1.5 hours per day Agreement: Yes Rehab Potential: Fair Time/GCodes Start Time: 06:55 Stop Time: 09:05 Total Time Billed (hr/min): 100 Billed Treatment Time 1 visit-ADL 5 (75 min) EX 2 (25 min) BOLA WELLER Jun 20, 2021 08:33
[2021-06-20] MEDS: PANTOPRAZOLE 40 MG (PROTONIX) TAB PO SCH (09:00)
[2021-06-20] MEDS: ASPIRIN E.C. 81 MG (ECOTRIN) TAB PO SCH (09:00)
[2021-06-20] MEDS: FENOFIBRATE 134 MG (LOFIBRA) CAPSULE PO SCH (09:00)
[2021-06-20] MEDS: OXYBUTYNIN (DITROPAN) 5 MG TAB PO SCH ×3 (09:00→21:48)
[2021-06-20] MEDS: polyethylene glycoL POWDER 17 GM (MIRALAX) PACK PO SCH ×2 (09:01→21:48)
[2021-06-20] MEDS: ROSUVASTATIN 20 MG (CRESTOR) TABLET PO SCH (09:01)
[2021-06-20] MEDS: ENOXAPARIN 40 MG/0.4 ML (LOVENOX) SYR SC SCH (09:01)
[2021-06-20] MEDS: DOCUSATE SODIUM 100 MG (COLACE) CAP PO SCH ×2 (09:01→21:48)
[2021-06-20] MEDS: SENNA W/DOCUSATE (SENOKOT S) TABLET PO SCH ×2 (09:01→21:48)
[2021-06-20] MEDS: DULoxetine 30 MG (CYMBALTA) CAP PO SCH (09:04)
--- NOTE | 2021-06-20 10:42 | Physical Therapy Daily Note ---
PT Daily Note-Current Subjective Patient agrees to PT. Requests toilet use. Transfers SCALE: Activities may be completed with or without assistive devices. 9-Ykhjavamjy-zqbqpzo completes the activity by him/herself with no assistance from a helper. 5-Set-up or Clean-up Assistance-helper sets up or cleans up; patient completes activity. [place] assists only prior to or following the activity. 4-Supervision or Touching Assistance-helper provides verbal cues and/or touching/steadying and/or contact guard assistance as patient completes activity. Assistance may be provided throughout the activity or intermittently. 3-Partial/Moderate Assistance-helper does LESS THAN HALF the effort. [place] lifts, holds or supports trunk or limbs, but provides less than half the effort. 2-Substantial/Maximal Assistance-helper does MORE THAN HALF the effort. [place] lifts or holds trunk or limbs and provides more than half the effort. 8-Skuktxsfy-drpgsn does ALL the effort. Patient does none of the effort to complete the activity. Or, the assistance of 2 or more helpers is required for the patient to complete the activity. If activity was not attempted, code reason: 7-Patient Refused. 9-Not Applicable-not attempted and the patient did not perform the activity before the current illness, exacerbation or injury. 10-Not Attempted due to Environmental Limitations-(lack of equipment, weather restraints, etc.). 88-Not Attempted due to Medical Conditions or Safety Concerns. Sit to Stand (QC): 3 Toilet Transfer (QC): 3 Weight Bearing Full Weight Bearing Full Weight Bearing Gait Training Does the Patient Walk?: Yes Distance: 150' x 4 Walk 10 feet (QC): 3 Walk 50 ft with 2 Turns(QC): 3 Walk 150 ft (QC): 3 Gait Assistive Device: FWW 3 episodes of decreased motor planning bilateral LE with PT correcting FWW Exercises Seated Therapy Exercises: Ankle pumps, Long arc quads, Hip flexion, Hip abd/add, Glut set Seated Reps: 12 Assessment Patient had 3 episodes of diminished motor planning bilateral LE requiring PT to correct and called for RN assist due to patient became diaphoretic and nauseous. Noted decrease BP (refer to nursing notes). Patient did recover and resumed activity with PT. Patient did require min to mod assist on this date. PT Short Term Goals Short Term Goals Time Frame: Jun 24, 2021 Roll Left & Right: 6 Sit to lyin Lying to sitting on side of be: 6 Sit to stand: 4 (SBA) Chair/urg-vf-cwvds transfer: 4 (SBA) Toilet transfer: 4 (SBA) Car transfer: 4 (SBA) Walk 10 feet: 4 (SBA) Walk 50 feet with two turns: 4 (SBA) Walk 150 feet: 4 (SBA) Walking 10ft on uneven surface: 4 (SBA) 1 step (curb): 4 (CGA) 4 steps: 4 12 steps: 4 (CGA) Picking up objects: 4 (CGA) Does pt use a wc or scooter: No PT Residential Goals Day Care Aide Goals PT Residential Goals Time Frame: Jul 08, 2021 Roll Left & Right (QC): 6 Sit to Lying (QC): 6 Lying-Sitting on Side/Bed(QC): 6 Sit to Stand (QC): 6 Chair/Tru-ix-Bkihh Xfer(QC): 6 Toilet Transfer (QC): 6 Car Transfer (QC): 6 Does the Patient Walk: Yes Walk 10 feet (QC): 6 Walk 50ft with 2 Turns (QC): 6 Walk 150 ft (QC): 6 Walking 10ft on Uneven Surface: 6 1 Step (curb) (QC): 6 4 Steps (QC): 6 12 Steps (QC): 6 Picking up an Object (QC): 6 Does the Pt use WC or Scooter?: No Wheel 50 feet with 2 turns (QC: 09 Wheel 150 feet: 09 PT Plan Treatment/Plan Treatment Plan: Continue Plan of Care Treatment Plan: Concurrent Therapy, Education, Functional Activity [place], Functional Strength, Group Therapy, Gait, Safety, Therapeutic Exercise, Transfers Treatment Duration: Jul 08, 2021 Frequency: At least 5 of 7 days/Wk (IRF) Estimated Hrs Per Day: 1.5 hours per day Patient and/or Family Agrees t: Yes Time/GCodes Time In: 945 Time Out: 1035 Total Billed Treatment Time: 50 Total Billed Treatment 1 visit GT x 2 33 min EX 17 min MALU MORRISON PT Jun 20, 2021 10:42
[2021-06-20 20:00] VITALS: BP 105/56
[2021-06-21] MEDS: MULTIVIT W/MINERALS TAB (THERAGRAN M) PO SCH (07:21)
[2021-06-21] MEDS: inSUlin ASPART (NovoLOG) 1 UNIT/0.01 ML (CHARGE PER UNIT) SC SCH ×3 (07:21→17:40)
[2021-06-21 07:25] VITALS: BP 121/53
--- NOTE | 2021-06-21 08:37 | PM&R Progress Note ---
Subjective HPI/CC On Admission Date Seen by Provider: Jun 21, 2021 Time Seen by Provider: 12:30 Subjective/Events-last exam 06/21/2021: Patient doing well Blood sugars labile No pain reported 06/20/2021: Patient doing well Dulcolax suppository may be needed No pain is reported 06/19/2021: Patient doing really well Ex- at the bedside No concerns Blood sugars are labile 06/18/2021: Betty jenkins working pretty well Bowels moved Ex- at the bedside who will take care of her when she goes home Labile sugars due to steroids 06/17/2021: Pt is doing well Freeyle Jose will be brought in by the family Bowels moved yesterday and they were loose Checked meds and labs No pain is reported Labile sugars and in the afternoon she was very low so I adjusted insulin dramatically Review of Systems General: Fatigue, Malaise Objective Exam Vital Signs Vital Signs Date Time Temp Pulse Resp B/P (MAP) Pulse Ox O2 Delivery O2 Flow Rate FiO2 06/21/21 21:00 Room Air 06/21/21 20:39 36.4 88 20 113/55 (74) 96 06/17/21 22:49 21 Capillary Refill : General Appearance: No Apparent Distress, WD/WN, Anxious, Chronically ill HEENT: PERRL/EOMI, Normal ENT Inspection, Pharynx Normal Neck: Full Range of Motion, Normal Inspection, Non Tender, Supple, Carotid Brui t Respiratory: Chest Non Tender, Lungs Clear, No Accessory Muscle Use, No Respiratory Distress, Decreased Breath Sounds Cardiovascular: Regular Rate, Rhythm, No Edema, No Gallop, No JVD, No Murmur, Normal Peripheral Pulses Gastrointestinal: Normal Bowel Sounds, No Organomegaly, No Pulsatile Mass, Non Tender, Soft Back: Normal Inspection, No CVA Tenderness, No Vertebral Tenderness Extremity: Normal Capillary Refill, Normal Inspection, Normal Range of Motion, Non Tender, No Calf Tenderness, No Pedal Edema Neurologic/Psychiatric: Alert, Oriented x3, No Motor/Sensory Deficits, spring maker II- XII Norm as Tested, Abnormal Gait, Depressed Affect, Motor Weakness (Generalized weakness) Skin: Normal Color, Warm/Dry Lymphatic: No Adenopathy Results/Procedures Lab Patient resulted labs reviewed. FIM Transfers Therapy Code Descriptions/Definitions Functional [place] Measure: 0=Not Assessed/NA 4=Minimal Assistance 1=Total Assistance 5=Supervision or Setup 2=Maximal Assistance 6=Modified [place] 3=Moderate Assistance 7=Complete IndependenceSCALE: Activities may be completed with or without assistive devices. 0-Iooproohir-bapremp completes the activity by him/herself with no assistance from a helper. 5-Set-up or Clean-up Assistance-helper sets up or cleans up; patient completes activity. [place] assists only prior to or following the activity. 4-Supervision or Touching Assistance-helper provides verbal cues and/or touching/steadying and/or contact guard assistance as patient completes activity. Assistance may be provided throughout the activity or intermittently. 3-Partial/Moderate Assistance-helper does LESS THAN HALF the effort. [place] lifts, holds or supports trunk or limbs, but provides less than half the effort. 2-Substantial/Maximal Assistance-helper does MORE THAN HALF the effort. [place] lifts or holds trunk or limbs and provides more than half the effort. 7-Jyakwmsio-uclumk does ALL the effort. Patient does none of the effort to complete the activity. Or, the assistance of 2 or more helpers is required for the patient to complete the activity. If activity was not attempted, code reason: 7-Patient Refused. 9-Not Applicable-not attempted and the patient did not perform the activity before the current illness, exacerbation or injury. 10-Not Attempted due to Environmental Limitations-(lack of equipment, weather restraints, etc.). 88-Not Attempted due to Medical Conditions or Safety Concerns. Roll Left to Right (QC): 6 Sit to Lying (QC): 6 Sit to Stand (QC): 3 Chair/Gxr-lo-Foikt Xfer(QC): 6 Car Transfer (QC): 6 Gait Training Does the Patient Walk?: Yes Distance: 150' x 4 Walk 10 feet (QC): 3 Walk 50 ft with 2 Turns(QC): 3 Walk 150 ft (QC): 3 Walking 10ft/uneven surface-QC: 3 Gait Persons Needed: 1 Gait Assistive Device: FWW Wheelchair Training Does the Pt Use a Wheelchair?: No Wheel 50 ft with 2 turns (QC): 09 Wheel 150 ft (QC): 09 Type of Wheelchair: N/A Stair Training Stair Training: Handrails/: 2 handrails #of Steps: 4 1 Step (curb) (QC): 3 4 Steps (QC): 4 12 Steps (QC): 3 Stairs: Pattern: Reciprocal Balance Picking up an Object (QC): 3 ADL-Treatment Eating (QC): 6 Oral Hygiene (QC): 6 Shower/Bathe Self (QC): 4 Upper Body Dressing (QC): 5 Lower Body Dressing (QC): 5 On/Off Footwear (QC): 5 Toileting Hygiene (QC): 6 Toilet Transfer (QC): 6 Assessment/Plan Assessment and Plan Assess & Plan/Chief Complaint Assessment: Debility Cognitive deficit Small cell lung cancer 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 Type 2 diabetes bsp-vj-fmlsero due to steroids HTN HLD COPD Fatty liver disease Anxiety Mental illness with personality disorder Hypoglycemic episode 06/17/2021 Impulsive behavior so she is a fall risk Plan: Aggressive rehab Radiation treatment Supportive senior living meds 06/17/2021: Adjust insulin due to hypoglycemia Supportive care 06/18/2021: Supportive care Insulin Monitor sugars 06/19/2021: Monitor sugars 06/20/2021: Monitor sugars Bowel regimen 06/21/2021: Supportive care Insulin (1) Cerebellar mass Status: Acute (2) Personality disorder (3) Diabetes mellitus (4) Former smoker (5) Ataxia Status: Acute (6) Cerebral edema Status: Acute MADHURI MCCRARY DO Jun 21, 2021 08:37
[2021-06-21] MEDS: ROSUVASTATIN 20 MG (CRESTOR) TABLET PO SCH (08:51)
[2021-06-21] MEDS: DULoxetine 30 MG (CYMBALTA) CAP PO SCH (08:51)
[2021-06-21] MEDS: DOCUSATE SODIUM 100 MG (COLACE) CAP PO SCH ×2 (08:51→20:34)
[2021-06-21] MEDS: PANTOPRAZOLE 40 MG (PROTONIX) TAB PO SCH (08:51)
[2021-06-21] MEDS: SENNA W/DOCUSATE (SENOKOT S) TABLET PO SCH ×2 (08:51→20:34)
[2021-06-21] MEDS: FENOFIBRATE 134 MG (LOFIBRA) CAPSULE PO SCH (08:52)
[2021-06-21] MEDS: polyethylene glycoL POWDER 17 GM (MIRALAX) PACK PO SCH ×2 (08:52→20:43)
[2021-06-21] MEDS: ASPIRIN E.C. 81 MG (ECOTRIN) TAB PO SCH (08:52)
[2021-06-21] MEDS: OXYBUTYNIN (DITROPAN) 5 MG TAB PO SCH ×3 (08:52→20:35)
[2021-06-21] MEDS: ENOXAPARIN 40 MG/0.4 ML (LOVENOX) SYR SC SCH (08:55)
[2021-06-21 20:39] VITALS: BP 113/55
[2021-06-22] MEDS: MULTIVIT W/MINERALS TAB (THERAGRAN M) PO SCH (06:26)
--- NOTE | 2021-06-22 06:54 | PM&R Progress Note ---
Subjective HPI/CC On Admission Date Seen by Provider: Jun 22, 2021 Time Seen by Provider: 09:30 Subjective/Events-last exam 06/22/2021: Pt is doing really well Having no new problems No pain is reported Discharge planned on Tuesday06/21/2021: Patient doing well Blood sugars labile No pain reported 06/20/2021: Patient doing well Dulcolax suppository may be needed No pain is reported 06/19/2021: Patient doing really well Ex- at the bedside No concerns Blood sugars are labile 06/18/2021: Freestyle jose working pretty well Bowels moved Ex- at the bedside who will take care of her when she goes home Labile sugars due to steroids 06/17/2021: Pt is doing well FreeStyle Jose will be brought in by the family Bowels moved yesterday and they were loose Checked meds and labs No pain is reported Labile sugars and in the afternoon she was very low so I adjusted insulin dramatically Review of Systems General: Fatigue, Malaise Objective Exam Vital Signs Vital Signs Date Time Temp Pulse Resp B/P (MAP) Pulse Ox O2 Delivery O2 Flow Rate FiO2 06/22/21 21:00 Room Air 06/22/21 20:00 36.4 79 18 139/70 (93) 96 06/17/21 22:49 21 Capillary Refill : General Appearance: No Apparent Distress, WD/WN, Anxious, Chronically ill HEENT: PERRL/EOMI, Normal ENT Inspection, Pharynx Normal Neck: Full Range of Motion, Normal Inspection, Non Tender, Supple, Carotid Bruit Respiratory: Chest Non Tender, Lungs Clear, No Accessory Muscle Use, No Respiratory Distress, Decreased Breath Sounds Cardiovascular: Regular Rate, Rhythm, No Edema, No Gallop, No JVD, No Murmur, Normal Peripheral Pulses Gastrointestinal: Normal Bowel Sounds, No Organomegaly, No Pulsatile Mass, Non Tender, Soft Back: Normal Inspection, No CVA Tenderness, No Vertebral Tenderness Extremity: Normal Capillary Refill, Normal Inspection, Normal Range of Motion, Non Tender, No Calf Tenderness, No Pedal Edema Neurologic/Psychiatric: Alert, Oriented x3, No Motor/Sensory Deficits, investment advisor II- XII Norm as Tested, Abnormal Gait, Depressed Affect, Motor Weakness (Generalized weakness) Skin: Normal Color, Warm/Dry Lymphatic: No Adenopathy Results/Procedures Lab Laboratory Tests 06/22/21 06:49 Patient resulted labs reviewed. FIM Transfers Therapy Code Descriptions/Definitions Functional [place] Measure: 0=Not Assessed/NA 4=Minimal Assistance 1=Total Assistance 5=Supervision or Setup 2=Maximal Assistance 6=Modified [place] 3=Moderate Assistance 7=Complete IndependenceSCALE: Activities may be completed with or without assistive devices. 6-Dmboavgwnd-qahsadg completes the activity by him/herself with no assistance from a helper. 5-Set-up or Clean-up Assistance-helper sets up or cleans up; patient completes activity. [place] assists only prior to or following the activity. 4-Supervision or Touching Assistance-helper provides verbal cues and/or touching/steadying and/or contact guard assistance as patient completes activity. Assistance may be provided throughout the activity or intermittently. 3-Partial/Moderate Assistance-helper does LESS THAN HALF the effort. [place] lifts, holds or supports trunk or limbs, but provides less than half the effort. 2-Substantial/Maximal Assistance-helper does MORE THAN HALF the effort. [place] lifts or holds trunk or limbs and provides more than half the effort. 4-Opjwkxnxr-uqndpz does ALL the effort. Patient does none of the effort to complete the activity. Or, the assistance of 2 or more helpers is required for the patient to complete the activity. If activity was not attempted, code reason: 7-Patient Refused. 9-Not Applicable-not attempted and the patient did not perform the activity before the current illness, exacerbation or injury. 10-Not Attempted due to Environmental Limitations-(lack of equipment, weather restraints, etc.). 88-Not Attempted due to Medical Conditions or Safety Concerns. Roll Left to Right (QC): 6 Sit to Lying (QC): 6 Sit to Stand (QC): 3 Chair/Xxg-aa-Bdtbe Xfer(QC): 6 Car Transfer (QC): 6 Gait Training Does the Patient Walk?: Yes Distance: 150' x 4 Walk 10 feet (QC): 3 Walk 50 ft with 2 Turns(QC): 3 Walk 150 ft (QC): 3 Walking 10ft/uneven surface-QC: 3 Gait Persons Needed: 1 Gait Assistive Device: FWW Wheelchair Training Does the Pt Use a Wheelchair?: No Wheel 50 ft with 2 turns (QC): 09 Wheel 150 ft (QC): 09 Type of Wheelchair: N/A Stair Training Stair Training: Handrails/: 2 handrails #of Steps: 4 1 Step (curb) (QC): 3 4 Steps (QC): 4 12 Steps (QC): 3 Stairs: Pattern: Reciprocal Balance Picking up an Object (QC): 3 ADL-Treatment Eating (QC): 6 Oral Hygiene (QC): 6 Shower/Bathe Self (QC): 4 Upper Body Dressing (QC): 5 Lower Body Dressing (QC): 5 On/Off Footwear (QC): 5 Toileting Hygiene (QC): 6 Toilet Transfer (QC): 6 Assessment/Plan Assessment and Plan Assess & Plan/Chief Complaint Assessment: Debility Cognitive deficit Small cell lung cancer 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 Type 2 diabetes yvi-sv-closimn due to steroids HTN HLD COPD Fatty liver disease Anxiety Mental illness with personality disorder Hypoglycemic episode 06/17/2021 Impulsive behavior so she is a fall risk Plan: Aggressive rehab Radiation treatment Supportive correction meds 06/17/2021: Adjust insulin due to hypoglycemia Supportive care 06/18/2021: Supportive care Insulin Monitor sugars 06/19/2021: Monitor sugars 06/20/2021: Monitor sugars Bowel regimen 06/21/2021: Supportive care Insulin 06/22/2021: Supportive care Discharge Tuesday (1) Cerebellar mass Status: Acute (2) Personality disorder (3) Diabetes mellitus (4) Former smoker (5) Ataxia Status: Acute (6) Cerebral edema Status: Acute MADHURI MCCRARY DO Jun 22, 2021 06:54
[2021-06-22 07:12] LABS: BASOPHILS % (AUTO) 0 % (0-10); EOSINOPHILS # (AUTO) 0.2 10^3/uL (0.0-0.3); EOSINOPHILS % (AUTO) 2 % (0-10); HEMATOCRIT 39 % (35-52); HEMOGLOBIN 12.9 g/dL (11.5-16.0); LYMPHOCYTES # (AUTO) 4.7 10^3/uL (1.0-4.0); LYMPHOCYTES % (AUTO) 43 % (12-44); MEAN CORPUSCULAR HEMOGLOBIN 29 pg (25-34); MEAN CORPUSCULAR HGB CONC 33 g/dL (32-36); MEAN CORPUSCULAR VOLUME 90 fL (80-99); MEAN PLATELET VOLUME 9.8 fL (9.0-12.2); MONOCYTES # (AUTO) 0.6 10^3/uL (0.0-1.0); MONOCYTES % (AUTO) 5 % (0-12); NEUTROPHILS # (AUTO) 5.4 10^3/uL (1.8-7.8); NEUTROPHILS % (AUTO) 49 % (42-75); PLATELET COUNT 302 10^3/uL (130-400)
[2021-06-22 07:35] LABS: POTASSIUM 4.6 MMOL/L (3.6-5.0)
[2021-06-22 07:36] LABS: CALCIUM 9.5 MG/DL (8.5-10.1)
[2021-06-22] MEDS: SENNA W/DOCUSATE (SENOKOT S) TABLET PO SCH ×2 (07:37→21:00)
[2021-06-22 07:38] LABS: TOTAL PROTEIN 6.8 GM/DL (6.4-8.2)
[2021-06-22] MEDS: ROSUVASTATIN 20 MG (CRESTOR) TABLET PO SCH (07:38)
[2021-06-22] MEDS: FENOFIBRATE 134 MG (LOFIBRA) CAPSULE PO SCH (07:38)
[2021-06-22] MEDS: PANTOPRAZOLE 40 MG (PROTONIX) TAB PO SCH (07:38)
[2021-06-22] MEDS: DOCUSATE SODIUM 100 MG (COLACE) CAP PO SCH ×2 (07:38→21:00)
[2021-06-22] MEDS: DULoxetine 30 MG (CYMBALTA) CAP PO SCH (07:38)
[2021-06-22] MEDS: OXYBUTYNIN (DITROPAN) 5 MG TAB PO SCH ×3 (07:38→21:06)
[2021-06-22] MEDS: ASPIRIN E.C. 81 MG (ECOTRIN) TAB PO SCH (07:38)
[2021-06-22 07:39] LABS: BILIRUBIN,TOTAL 0.6 MG/DL (0.1-1.0)
[2021-06-22] MEDS: polyethylene glycoL POWDER 17 GM (MIRALAX) PACK PO SCH ×2 (07:39→21:00)
[2021-06-22] MEDS: ENOXAPARIN 40 MG/0.4 ML (LOVENOX) SYR SC SCH (07:39)
[2021-06-22 07:41] LABS: CREATININE SERUM 1.12 MG/DL (0.60-1.30)
[2021-06-22] MEDS: inSUlin ASPART (NovoLOG) 1 UNIT/0.01 ML (CHARGE PER UNIT) SC SCH ×3 (07:48→17:30)
[2021-06-22 08:00] VITALS: BP 112/72
--- NOTE | 2021-06-22 10:17 | Occupational Ther Daily Note ---
OT Current Status-Daily Note Subjective Pt denies pain, agreeable to treatment. Appearance Left sitting in recliner, all needs within reach. ADL-Treatment Therapy Code Descriptions/Definitions Functional [place] Measure: 0=Not Assessed/NA 4=Minimal Assistance 1=Total Assistance 5=Supervision or Setup 2=Maximal Assistance 6=Modified [place] 3=Moderate Assistance 7=Complete IndependenceSCALE: Activities may be completed with or without assistive devices. 9-Wuiczzbpbs-yvosjgn completes the activity by him/herself with no assistance from a helper. 5-Set-up or Clean-up Assistance-helper sets up or cleans up; patient completes activity. [place] assists only prior to or following the activity. 4-Supervision or Touching Assistance-helper provides verbal cues and/or touching/steadying and/or contact guard assistance as patient completes ac tivity. Assistance may be provided throughout the activity or intermittently. 3-Partial/Moderate Assistance-helper does LESS THAN HALF the effort. [place] lifts, holds or supports trunk or limbs, but provides less than half the effort. 2-Substantial/Maximal Assistance-helper does MORE THAN HALF the effort. [place] lifts or holds trunk or limbs and provides more than half the effort. 4-Iggvciabk-bqivji does ALL the effort. Patient does none of the effort to complete the activity. Or, the assistance of 2 or more helpers is required for the patient to complete the activity. If activity was not attempted, code reason: 7-Patient Refused. 9-Not Applicable-not attempted and the patient did not perform the activity before the current illness, exacerbation or injury. 10-Not Attempted due to Environmental Limitations-(lack of equipment, weather restraints, etc.). 88-Not Attempted due to Medical Conditions or Safety Concerns. Eating (QC): 6 Oral Hygiene (QC): 6 Shower/Bathe Self (QC): 5 Upper Body Dressing (QC): 5 Lower Body Dressing (QC): 5 On/Off Footwear: 6 Toileting Hygiene (QC): 6 Toilet Transfer (QC): 4 While ambulating to bathroom, pt with speedy gait. 1 LOB posteriorly with good righting reaction towards grab bar. Pt able to recover on own. Education on slowing pace. Shower performed; majority completed in sitting. Improved safety during bathing task this date, no cues needed. She stood only briefly to wash [place] area/buttocks with single UE support on grab bar. No LOB. Clothing donned seated on shower chair. Assist only with pulling sports bra down around torso, yet this is pt's baseline. Supervision/set up with all other clothing items. Pt does exhibit SOA this date with exertion. Education on energy conservation and PLB provided. Improves with seated rest break. Education OT Patient Education: Correct positioning, Energy conservation, Modified ADL techniques, Progress toward Goal/Update tx plan, Purpose of tx/functional ac tivities, Safety issues Teaching Recipient: Patient Teaching Methods: Discussion Response to Teaching: Verbalize Understanding, Reinforcement Needed OT Short Term Goals Short Term Goals Time Frame: Jun 22, 2021 Eatin Oral hygiene: 5 Toileting hygiene: 5 Shower/bathe self: 5 Upper body dressin Lower body dressin Putting on/taking off footwear: 5 OT Care Home Goals Crew Attendant Goals Time Frame: Jun 26, 2021 Eating (QC): 6 Oral Hygiene (QC): 6 Toileting Hygiene (QC): 6 Shower/Bathe Self (QC): 6 Upper Body Dressing (QC): 6 Lower Body Dressing (QC): 6 On/Off Footwear (QC): 6 1=Demonstrate adherence to instructed precautions during ADL tasks. 2=Patient will verbalize/demonstrate understanding of assistive devices/modifications for ADL. 3=Patient will improve strength/tolerance for activity to enable patient to perform ADL's. OT Education/Plan Problem List/Assessment Assessment: Decreased Activ Tolerance, Decreased Safety Aware, Decreased UE Strength, Impaired Funct Balance, Impaired Self-Care Skills Discharge Recommendations Plan/Recommendations: Continue POC Treatment Plan/Plan of Care Treatment,Training & Education: Yes Patient would benefit from OT for education, treatment and training to promote independence in ADL's, mobility, safety and/or upper extremity function for ADL's. Plan of Care: ADL Retraining, Cognitive Retraining, Functional Mobility, Group Exercise/Act as Ind, UE Funct Exercise/Act Treatment Duration: Jun 26, 2021 Frequency: At least 5 of 7 days/Wk (IRF) Estimated Hrs Per Day: 1.5 hours per day Agreement: Yes Rehab Potential: Fair Time/GCodes Start Time: 09:00 Stop Time: 10:15 Total Time Billed (hr/min): 75 Billed Treatment Time 1 visit ADL x5 Rourk,Jenna OT Jun 22, 2021 10:17
--- NOTE | 2021-06-22 12:09 | Physical Therapy Daily Note ---
PT Daily Note-Current Subjective Pt sitting in recliner upon arrival. Pt agrees to PT. Pain Location: No Pain Reported Mental Status Patient Orientation: Person, Place Transfers SCALE: Activities may be completed with or without assistive devices. 1-Mewdpfqxib-ydctexc completes the activity by him/herself with no assistance from a helper. 5-Set-up or Clean-up Assistance-helper sets up or cleans up; patient completes activity. [place] assists only prior to or following the activity. 4-Supervision or Touching Assistance-helper provides verbal cues and/or touching/steadying and/or contact guard assistance as patient completes activity. Assistance may be provided throughout the activity or intermittently. 3-Partial/Moderate Assistance-helper does LESS THAN HALF the effort. [place] lifts, holds or supports trunk or limbs, but provides less than half the effort. 2-Substantial/Maximal Assistance-helper does MORE THAN HALF the effort. [place] lifts or holds trunk or limbs and provides more than half the effort. 3-Xolldvmgw-lfmbcf does ALL the effort. Patient does none of the effort to complete the activity. Or, the assistance of 2 or more helpers is required for the patient to complete the activity. If activity was not attempted, code reason: 7-Patient Refused. 9-Not Applicable-not attempted and the patient did not perform the activity before the current illness, exacerbation or injury. 10-Not Attempted due to Environmental Limitations-(lack of equipment, weather restraints, etc.). 88-Not Attempted due to Medical Conditions or Safety Concerns. Sit to Stand (QC): 5 Toilet Transfer (QC): 5 Weight Bearing Full Weight Bearing Full Weight Bearing Gait Training Does the Patient Walk?: Yes Distance: 500' Walk 10 feet (QC): 5 Walk 50 ft with 2 Turns(QC): 5 Walk 150 ft (QC): 5 Gait Persons Needed: 1 Gait Assistive Device: FWW VC for safety Wheelchair Training Does the Pt Use a Wheelchair?: No Exercises NuStep Minutes: 15 NuStep Workload: 4 Treatments TF to standing and amb. to BR. Pt amb. in hallway before using NuStep for 15m at WL 4. Pt amb. back to room and rest at EOB for lunch to arrive. All needs met, call light in hand. Assessment Current Status: Good Progress VC for safety at times. PT Short Term Goals Short Term Goals Time Frame: Jun 24, 2021 Roll Left & Right: 6 Sit to lyin Lying to sitting on side of be: 6 Sit to stand: 4 (SBA) Chair/ume-pz-tdqrz transfer: 4 (SBA) Toilet transfer: 4 (SBA) Car transfer: 4 (SBA) Walk 10 feet: 4 (SBA) Walk 50 feet with two turns: 4 (SBA) Walk 150 feet: 4 (SBA) Walking 10ft on uneven surface: 4 (SBA) 1 step (curb): 4 (CGA) 4 steps: 4 12 steps: 4 (CGA) Picking up objects: 4 (CGA) Does pt use a wc or scooter: No PT Associate Professor Of Theology Goals [facility] Goals PT Associate Professor Of Theology Goals Time Frame: Jul 08, 2021 Roll Left & Right (QC): 6 Sit to Lying (QC): 6 Lying-Sitting on Side/Bed(QC): 6 Sit to Stand (QC): 6 Chair/Tzj-ad-Mdanx Xfer(QC): 6 Toilet Transfer (QC): 6 Car Transfer (QC): 6 Does the Patient Walk: Yes Walk 10 feet (QC): 6 Walk 50ft with 2 Turns (QC): 6 Walk 150 ft (QC): 6 Walking 10ft on Uneven Surface: 6 1 Step (curb) (QC): 6 4 Steps (QC): 6 12 Steps (QC): 6 Picking up an Object (QC): 6 Does the Pt use WC or Scooter?: No Wheel 50 feet with 2 turns (QC: 09 Wheel 150 feet: 09 PT Plan Problem List Problem List: Safety Treatment/Plan Treatment Plan: Continue Plan of Care Treatment Plan: Concurrent Therapy, Education, Functional Activity [place], Functional Strength, Group Therapy, Gait, Safety, Therapeutic Exercise, Transfers Treatment Duration: Jul 08, 2021 Frequency: At least 5 of 7 days/Wk (IRF) Estimated Hrs Per Day: 1.5 hours per day Patient and/or Family Agrees t: Yes Safety Risks/Education Patient Education: Correct Positioning, Safety Issues Teaching Recipient: Patient Teaching Methods: Discussion Response to Teaching: Verbalize Understanding Time/GCodes Time In: 1100 Time Out: 1145 Total Billed Treatment Time: 45 Total Billed Treatment 1, GT (15m), FA (15m) & EX (15m) JENELLE SHINE PTA Jun 22, 2021 12:09
--- NOTE | 2021-06-22 12:20 | Speech Therapy Daily Note ---
Speech Daily Progress Note Subjective Date Seen by Provider: Jun 22, 2021 Time Seen by Provider: 08:30 The patient was lying in her bed, awake and alert upon entrance. The patient greeted the clinician and was agreeable to participation in the cognitive linguistic treatment session. Objective The patient continues to require consistent redirection to task and topic, as she is often tangential (the patient often discussed dogs, printer ink, and sleep patterns throughout the treatment session). - Orientation: With the use of the in-room white board (external aid), the patient was oriented to month, year, day of the week, and date. - External Memory Strategies: External memory strategies were discussed with the patient to strategically plan for organization of appointments following discharge. Per patient, her ex- and her caregiver, Daxa, keep track of her appointments and important dates. The patient was encouraged to purchase a calendar in attempts to keep track of upcoming appointments and current orientation information. Assessment Assessment Current Status: Fair Progress Treatment Plan Continue Plan of Care Speech Short Term Goals Short Term Goals Short Term Goals 1. The patient will demonstrate 80% accuracy with memory exercises, independently. 2. The patient will recall safety precautions/fall precautions with 80% accuracy, independently. Time Frame-STG: One Week. Speech Correction Goals Correction Goals 1. The patient will display improved cognitive linguistic skills for safe discharge to the least restrictive environment. Time Frame: Two Weeks. Speech-Plan Treatment Plan Speech Therapy Treatment Plan: Continue Plan of Care Treatment Duration: Jul 01, 2021 Frequency: 3 times per week (Three to five times per week. ) Estimated Hrs Per Day: .5 hour per day Rehab Potential: Fair Safety Risks/Education Teaching Recipient: Patient Teaching Methods: Discussion Response to Teaching: Reinforcement Needed Education Topics Provided: External Memory Strategies Time Speech Therapy Time In: 08:30 Speech Therapy Time Out: 09:00 Total Billed Time: 30 Billed Treatment Time 1[address] Jun 22, 2021 12:20
[2021-06-22] MEDS ORDERED: OXYB5TAB13 PO (14:56)
[2021-06-22] MEDS ORDERED: PRAV40TA2 PO (14:59)
[2021-06-22] MEDS ORDERED: TRAZ-227 PO (14:59)
--- NOTE | 2021-06-22 15:46 | Physical Therapy Daily Note ---
PT Daily Note-Current Subjective Pt sitting in recliner with Sp present, asking to use BR. Pt agrees to PT. Pain Location: No Pain Reported Mental Status Patient Orientation: Person, Place Transfers SCALE: Activities may be completed with or without assistive devices. 5-Vsonfmqdrj-gvnhteb completes the activity by him/herself with no assistance from a helper. 5-Set-up or Clean-up Assistance-helper sets up or cleans up; patient completes activity. [place] assists only prior to or following the activity. 4-Supervision or Touching Assistance-helper provides verbal cues and/or touching/steadying and/or contact guard assistance as patient completes activity. Assistance may be provided throughout the activity or intermittently. 3-Partial/Moderate Assistance-helper does LESS THAN HALF the effort. [place] lifts, holds or supports trunk or limbs, but provides less than half the effort. 2-Substantial/Maximal Assistance-helper does MORE THAN HALF the effort. [place] lifts or holds trunk or limbs and provides more than half the effort. 5-Riycfpbzq-fgbsal does ALL the effort. Patient does none of the effort to compl ete the activity. Or, the assistance of 2 or more helpers is required for the patient to complete the activity. If activity was not attempted, code reason: 7-Patient Refused. 9-Not Applicable-not attempted and the patient did not perform the activity before the current illness, exacerbation or injury. 10-Not Attempted due to Environmental Limitations-(lack of equipment, weather restraints, etc.). 88-Not Attempted due to Medical Conditions or Safety Concerns. Sit to Stand (QC): 5 Toilet Transfer (QC): 5 Weight Bearing Full Weight Bearing Full Weight Bearing Treatments Pt & Sp asking questions as far AE needs and insurance coverage, FWW vs 4WW, progress and what pt needs to focus on after d/c. Pt Educ. to answer and discuss situation. Pt & Sp express feeling comfortable with d/c. All needs met, call light in hand. Assessment Current Status: Good Progress VC for safety and explained to pt & Sp about safety concerns and how to prevent falls at home. PT Short Term Goals Short Term Goals Time Frame: Jun 24, 2021 Roll Left & Right: 6 Sit to lyin Lying to sitting on side of be: 6 Sit to stand: 4 (SBA) Chair/sja-ts-jjiys transfer: 4 (SBA) Toilet transfer: 4 (SBA) Car transfer: 4 (SBA) Walk 10 feet: 4 (SBA) Walk 50 feet with two turns: 4 (SBA) Walk 150 feet: 4 (SBA) Walking 10ft on uneven surface: 4 (SBA) 1 step (curb): 4 (CGA) 4 steps: 4 12 steps: 4 (CGA) Picking up objects: 4 (CGA) Does pt use a wc or scooter: No PT Civil Engineering Professor Goals Civil Engineering Professor Goals PT Civil Engineering Professor Goals Time Frame: Jul 08, 2021 Roll Left & Right (QC): 6 Sit to Lying (QC): 6 Lying-Sitting on Side/Bed(QC): 6 Sit to Stand (QC): 6 Chair/Hme-ij-Spuge Xfer(QC): 6 Toilet Transfer (QC): 6 Car Transfer (QC): 6 Does the Patient Walk: Yes Walk 10 feet (QC): 6 Walk 50ft with 2 Turns (QC): 6 Walk 150 ft (QC): 6 Walking 10ft on Uneven Surface: 6 1 Step (curb) (QC): 6 4 Steps (QC): 6 12 Steps (QC): 6 Picking up an Object (QC): 6 Does the Pt use WC or Scooter?: No Wheel 50 feet with 2 turns (QC: 09 Wheel 150 feet: 09 PT Plan Problem List Problem List: Safety Treatment/Plan Treatment Plan: Continue Plan of Care Treatment Plan: Concurrent Therapy, Education, Functional Activity Mackenzie, Functional Strength, Group Therapy, Gait, Safety, Therapeutic Exercise, Transfers Treatment Duration: Jul 08, 2021 Frequency: At least 5 of 7 days/Wk (IRF) Estimated Hrs Per Day: 1.5 hours per day Patient and/or Family Agrees t: Yes Safety Risks/Education Patient Education: Safety Issues Teaching Recipient: Patient, Significant Other Teaching Methods: Discussion Response to Teaching: Verbalize Understanding Time/GCodes Time In: 1355 Time Out: 1425 Total Billed Treatment Time: 30 Total Billed Treatment 1, FA x2 (30m) JENELLE SHINE FILM REPLACEMENT ORDERER Jun 22, 2021 15:46
[2021-06-22 20:00] VITALS: BP 139/70
[2021-06-23] MEDS: MULTIVIT W/MINERALS TAB (THERAGRAN M) PO SCH (06:35)
[2021-06-23] MEDS: inSUlin ASPART (NovoLOG) 1 UNIT/0.01 ML (CHARGE PER UNIT) SC SCH ×3 (06:36→17:48)
--- NOTE | 2021-06-23 06:45 | PM&R Progress Note ---
Subjective HPI/CC On Admission Date Seen by Provider: Jun 23, 2021 Time Seen by Provider: 09:00 Subjective/Events-last exam 06/23/2021: Pt is doing a lot better Discharge planned for tomorrow Will remain on Decadron until 07/10/21 Insulin already arranged at home so we will just refill what she needs 06/22/2021: Pt is doing really well Having no new problems No pain is reported Discharge planned on Tuesday06/21/2021: Patient doing well Blood sugars labile No pain reported 06/20/2021: Patient doing well Dulcolax suppository may be needed No pain is reported 06/19/2021: Patient doing really well Ex- at the bedside No concerns Blood sugars are labile 06/18/2021: Freestyle jose working pretty well Bowels moved Ex- at the bedside who will take care of her when she goes home Labile sugars due to steroids 06/17/2021: Pt is doing well FreeStyle Jose will be brought in by the family Bowels moved yesterday and they were loose Checked meds and labs No pain is reported Labile sugars and in the afternoon she was very low so I adjusted insulin dramatically Review of Systems General: Fatigue, Malaise Objective Exam Vital Signs Vital Signs Date Time Temp Pulse Resp B/P (MAP) Pulse Ox O2 Delivery O2 Flow Rate FiO2 06/23/21 20:43 Room Air 06/23/21 19:26 36.2 85 16 118/72 (87) 94 Capillary Refill : General Appearance: No Apparent Distress, WD/WN, Anxious, Chronically ill HEENT: PERRL/EOMI, Normal ENT Inspection, Pharynx Normal Neck: Full Range of Motion, Normal Inspection, Non Tender, Supple, Carotid Bruit Respiratory: Chest Non Tender, Lungs Clear, No Accessory Muscle Use, No Respiratory Distress, Decreased Breath Sounds Cardiovascular: Regular Rate, Rhythm, No Edema, No Gallop, No JVD, No Murmur, Normal Peripheral Pulses Gastrointestinal: Normal Bowel Sounds, No Organomegaly, No Pulsatile Mass, Non Tender, Soft Back: Normal Inspection, No CVA Tenderness, No Vertebral Tenderness Extremity: Normal Capillary Refill, Normal Inspection, Normal Range of Motion, Non Tender, No Calf Tenderness, No Pedal Edema Neurologic/Psychiatric: Alert, Oriented x3, No Motor/Sensory Deficits, 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 FIM Transfers Therapy Code Descriptions/Definitions Functional [place] Measure: 0=Not Assessed/NA 4=Minimal Assistance 1=Total Assistance 5=Supervision or Setup 2=Maximal Assistance 6=Modified [place] 3=Moderate Assistance 7=Complete IndependenceSCALE: Activities may be completed with or without assistive devices. 3-Vdllcetvsu-jxxyknq completes the activity by him/herself with no assistance from a helper. 5-Set-up or Clean-up Assistance-helper sets up or cleans up; patient completes activity. [place] assists only prior to or following the activity. 4-Supervision or Touching Assistance-helper provides verbal cues and/or touching/steadying and/or contact guard assistance as patient completes activity. Assistance may be provided throughout the activity or intermittently. 3-Partial/Moderate Assistance-helper does LESS THAN HALF the effort. [place] lifts, holds or supports trunk or limbs, but provides less than half the effort. 2-Substantial/Maximal Assistance-helper does MORE THAN HALF the effort. [place] lifts or holds trunk or limbs and provides more than half the effort. 0-Urgcyohwe-yqkiji does ALL the effort. Patient does none of the effort to complete the activity. Or, the assistance of 2 or more helpers is required for the patient to complete the activity. If activity was not attempted, code reason: 7-Patient Refused. 9-Not Applicable-not attempted and the patient did not perform the activity before the current illness, exacerbation or injury. 10-Not Attempted due to Environmental Limitations-(lack of equipment, weather restraints, etc.). 88-Not Attempted due to Medical Conditions or Safety Concerns. Roll Left to Right (QC): 6 Sit to Lying (QC): 6 Sit to Stand (QC): 5 Chair/Xem-lu-Fixob Xfer(QC): 6 Car Transfer (QC): 6 Gait Training Does the Patient Walk?: Yes Distance: 500' Walk 10 feet (QC): 5 Walk 50 ft with 2 Turns(QC): 5 Walk 150 ft (QC): 5 Walking 10ft/uneven surface-QC: 3 Gait Persons Needed: 1 Gait Assistive Device: FWW Wheelchair Training Does the Pt Use a Wheelchair?: No Wheel 50 ft with 2 turns (QC): 09 Wheel 150 ft (QC): 09 Type of Wheelchair: N/A Stair Training Stair Training: Handrails/: 2 handrails #of Steps: 4 1 Step (curb) (QC): 3 4 Steps (QC): 4 12 Steps (QC): 3 Stairs: Pattern: Reciprocal Balance Picking up an Object (QC): 3 ADL-Treatment Eating (QC): 6 Oral Hygiene (QC): 6 Shower/Bathe Self (QC): 5 Upper Body Dressing (QC): 5 Lower Body Dressing (QC): 5 On/Off Footwear (QC): 6 Toileting Hygiene (QC): 6 Toilet Transfer (QC): 4 Assessment/Plan Assessment and Plan Assess & Plan/Chief Complaint Assessment: Debility Cognitive deficit Small cell lung cancer 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 Type 2 diabetes vso-jm-uaeegps due to steroids HTN HLD COPD Fatty liver disease Anxiety Mental illness with personality disorder Hypoglycemic episode 06/17/2021 Impulsive behavior so she is a fall risk Plan: Aggressive rehab Radiation treatment Supportive halfway meds 06/17/2021: Adjust insulin due to hypoglycemia Supportive care 06/18/2021: Supportive care Insulin Monitor sugars 06/19/2021: Monitor sugars 06/20/2021: Monitor sugars Bowel regimen 06/21/2021: Supportive care Insulin 06/22/2021: Supportive care Discharge Tuesday06/23/2021: Supportive care Discharge tomorrow (1) Cerebellar mass Status: Acute (2) Personality disorder (3) Diabetes mellitus (4) Former smoker (5) Ataxia Status: Acute (6) Cerebral edema Status: Acute MADHURI MCCRARY DO Jun 23, 2021 06:45
[2021-06-23 07:35] VITALS: BP 102/58
[2021-06-23] MEDS: ENOXAPARIN 40 MG/0.4 ML (LOVENOX) SYR SC SCH (07:51)
[2021-06-23] MEDS: DULoxetine 30 MG (CYMBALTA) CAP PO SCH (07:52)
[2021-06-23] MEDS: ROSUVASTATIN 20 MG (CRESTOR) TABLET PO SCH (07:52)
[2021-06-23] MEDS: FENOFIBRATE 134 MG (LOFIBRA) CAPSULE PO SCH (07:52)
[2021-06-23] MEDS: PANTOPRAZOLE 40 MG (PROTONIX) TAB PO SCH (07:52)
[2021-06-23] MEDS: ASPIRIN E.C. 81 MG (ECOTRIN) TAB PO SCH (07:52)
[2021-06-23] MEDS: OXYBUTYNIN (DITROPAN) 5 MG TAB PO SCH ×3 (07:52→20:41)
--- NOTE | 2021-06-23 09:30 | Physical Therapy Daily Note ---
PT Daily Note-Current Subjective Pt sitting in recliner upon arrival. Pt agrees to PT for QC scoring for anticipated d/c tomorrow. Pain Location: No Pain Reported Mental Status Patient Orientation: Person, Place, Situation Transfers SCALE: Activities may be completed with or without assistive devices. 7-Obmzwssask-ykwnavm completes the activity by him/herself with no assistance from a helper. 5-Set-up or Clean-up Assistance-helper sets up or cleans up; patient completes activity. [place] assists only prior to or following the activity. 4-Supervision or Touching Assistance-helper provides verbal cues and/or touching/steadying and/or contact guard assistance as patient completes activity. Assistance may be provided throughout the activity or intermittently. 3-Partial/Moderate Assistance-helper does LESS THAN HALF the effort. [place] lifts, holds or supports trunk or limbs, but provides less than half the effort. 2-Substantial/Maximal Assistance-helper does MORE THAN HALF the effort. [place] lifts or holds trunk or limbs and provides more than half the effort. 9-Mwftftcuz-tcshqu does ALL the effort. Patient does none of the effort to complete the activity. Or, the assistance of 2 or more helpers is required for the patient to complete the activity. If activity was not attempted, code reason: 7-Patient Refused. 9-Not Applicable-not attempted and the patient did not perform the activity before the current illness, exacerbation or injury. 10-Not Attempted due to Environmental Limitations-(lack of equipment, weather restraints, etc.). 88-Not Attempted due to Medical Conditions or Safety Concerns. Roll Left & Right (QC): 6 Sit to Lying (QC): 6 Lying to Sitting/Side of Bed(Q: 6 Sit to Stand (QC): 6 Chair/Alu-pp-Cvfsz Xfer(QC): 6 Toilet Transfer (QC): 6 Car Transfer (QC): 6 Weight Bearing Full Weight Bearing Full Weight Bearing Gait Training Does the Patient Walk?: Yes Distance: 250', 500' Walk 10 feet (QC): 6 Walk 50 ft with 2 Turns(QC): 6 Walk 150 ft (QC): 6 Walking 10ft/uneven surface-QC: 6 Gait Persons Needed: 0 Gait Assistive Device: FWW VC for safety at times and to focus on items to pt's R side as pt sometimes veers that way. Wheelchair Training Does the Pt Use a Wheelchair?: No Stair Training Stair Training: Handrails/: 2 handrails #of Steps: 16 1 Step (curb) (QC): 6 4 Steps (QC): 6 12 Steps (QC): 6 Stairs: Pattern: Reciprocal Balance Picking up an Object (QC): 6 Exercises NuStep Minutes: 15 NuStep Workload: 4 Treatments (800-830) TF to standing and amb. in hallway. Pt completes QC scoring items including transfers, stairs and amb. Pt returns to room to rest in recliner at end of tx. All needs met, call light in hand. ([id number]) Pt laying Supine in bed upon arrival. Pt finishes QC scoring items including bed mobility, car transfer, picking up object and walking across uneven surface. Pt amb. in hallway before returning to room to rest Supine in bed. All needs met, call light in hand. Assessment Current Status: Good Progress Occasional VC for safety as pt drifts to R when distracted. VC to stay focused and watch where walking. PT Short Term Goals Short Term Goals Time Frame: Jun 24, 2021 Roll Left & Right: 6 Sit to lyin Lying to sitting on side of be: 6 Sit to stand: 4 (SBA) Chair/rks-qo-iuxgl transfer: 4 (SBA) Toilet transfer: 4 (SBA) Car transfer: 4 (SBA) Walk 10 feet: 4 (SBA) Walk 50 feet with two turns: 4 (SBA) Walk 150 feet: 4 (SBA) Walking 10ft on uneven surface: 4 (SBA) 1 step (curb): 4 (CGA) 4 steps: 4 12 steps: 4 (CGA) Picking up objects: 4 (CGA) Does pt use a wc or scooter: No PT Long-Term Goals Long-Term Goals PT Long-Term Goals Time Frame: Jul 08, 2021 Roll Left & Right (QC): 6 Sit to Lying (QC): 6 Lying-Sitting on Side/Bed(QC): 6 Sit to Stand (QC): 6 Chair/Eju-bo-Iryiy Xfer(QC): 6 Toilet Transfer (QC): 6 Car Transfer (QC): 6 Does the Patient Walk: Yes Walk 10 feet (QC): 6 Walk 50ft with 2 Turns (QC): 6 Walk 150 ft (QC): 6 Walking 10ft on Uneven Surface: 6 1 Step (curb) (QC): 6 4 Steps (QC): 6 12 Steps (QC): 6 Picking up an Object (QC): 6 Does the Pt use WC or Scooter?: No Wheel 50 feet with 2 turns (QC: 09 Wheel 150 feet: 09 PT Plan Problem List Problem List: Activity Tolerance Treatment/Plan Treatment Plan: Continue Plan of Care Treatment Plan: Concurrent Therapy, Education, Functional Activity Mackenzie, Functional Strength, Group Therapy, Gait, Safety, Therapeutic Exercise, Transfers Treatment Duration: Jul 08, 2021 Frequency: At least 5 of 7 days/Wk (IRF) Estimated Hrs Per Day: 1.5 hours per day Patient and/or Family Agrees t: Yes Safety Risks/Education Patient Education: Steps, Correct Positioning, Safety Issues Teaching Recipient: Patient Teaching Methods: Discussion Response to Teaching: Verbalize Understanding Time/GCodes Time In: 800 Time Out: 1145 Total Billed Treatment Time: 90 Total Billed Treatment (800-830) 1, GT (15m) & FA (15m) ([id number]) 1, GT (15m), EX (15m) & FA x2 (30m) JENELLE SHINE PTA Jun 23, 2021 09:30
--- NOTE | 2021-06-23 10:42 | Speech Therapy Daily Note ---
Speech Daily Progress Note Subjective Date Seen by Provider: Jun 23, 2021 Time Seen by Provider: 08:30 The patient was seated upright in her recliner, awake and alert upon entrance to her room by the clinician. The patient greeted the clinician appropriately and was agreeable to participation in the cognitive linguistic treatment session. Objective - Orientation: With use of a visual aid (the in-room white board), the patient was oriented to month, day of week, date, year, and location. - Functional Recall: The patient participated in a discussion with the clinician regarding her recent physical therapy session, as well as, safety precautions physical therapy has asked the patient to remember throughout her day. The patient stated, "I always know to use my walker and to grab handles on chair." With continued explanation, the patient was describing to the clinician how it is important to reach back and grab the handles on chairs before she attempts to sit down. Expression of Ideas/Wants: Exhibits (3) Understanding Verbal Content: Usually Understands (3) Brief Interview-Mental Status: Yes Repetition of Three Words: Three (3) Temporal Orientation: Year: Correct (3) Temporal Orientation: Month: Accurate within 5 days(2) Temporal Orientation: Day: Correct (1) Recall : Wear to say "Sock": Yes, no cue required (2) Recall : Color: Yes, no cue required (2) Recall : Bed: Yes, no cue required (2) Memory/Recall Ability: Current season, That he or she is in a hsp/hsp unit Assessment Assessment Current Status: Good Progress, Fair Progress Treatment Plan Continue Plan of Care Speech Short Term Goals Short Term Goals Short Term Goals 1. The patient will demonstrate 80% accuracy with memory exercises, independently. 2. The patient will recall safety precautions/fall precautions with 80% accuracy, independently. Time Frame-STG: One Week. Speech Prison Goals Geospatial Technician Goals 1. The patient will display improved cognitive linguistic skills for safe discharge to the least restrictive environment. Time Frame: Two Weeks. Speech-Plan Treatment Plan Speech Therapy Treatment Plan: Continue Plan of Care Treatment Duration: Jul 01, 2021 Frequency: Modified Program (IRF) (Four to five times per week.) Estimated Hrs Per Day: .5 hour per day Rehab Potential: Fair Pt/Family Agrees to Plan: Yes Safety Risks/Education Teaching Recipient: Patient Teaching Methods: Discussion Response to Teaching: Verbalize Understanding Education Topics Provided: Speech Pathology Plan of Care Time Speech Therapy Time In: 08:30 Speech Therapy Time Out: 09:00 Total Billed Time: 30 Billed Treatment Time 1, CARL Cano Jun 23, 2021 10:42
--- NOTE | 2021-06-23 10:55 | Occupational Ther Daily Note ---
OT Current Status-Daily Note Subjective Pt alert, sitting in recliner when OT entered. Pt agreed to therapy. No c/o pain reported. Mental Status/Objective Patient Orientation: Person, Place, Time, Situation ADL-Treatment Pt requested to complete sponge bath and get dressed for the day. Pt ambulated to closet using FWW with supervision to retrieve UB/LB dressing. Pt transported clothing by placing them on her FWW. Pt ambulated back to recliner. After set up of materials, pt performed sponge bath while seated at recliner. Pt declined to cleanse feet at this time. Pt completed UB dressing independently. Pt was able to thread BLE through LB dressing. Pt sit-stand from recliner to FWW to hike LB. Pt ambulated to bathroom using FWW with supervision. Pt completed oral hygiene while standing at sink with supervision. Pt required vc to stay on task throughout treatment due to increase talking. Therapy Code Descriptions/Definitions Functional [place] Measure: 0=Not Assessed/NA 4=Minimal Assistance 1=Total Assistance 5=Supervision or Setup 2=Maximal Assistance 6=Modified [place] 3=Moderate Assistance 7=Complete IndependenceSCALE: Activities may be completed with or without assistive devices. 2-Xvbwtbpcxa-fyolfst completes the activity by him/herself with no assistance from a helper. 5-Set-up or Clean-up Assistance-helper sets up or cleans up; patient completes activity. [place] assists only prior to or following the activity. 4-Supervision or Touching Assistance-helper provides verbal cues and/or touching/steadying and/or contact guard assistance as patient completes activ ity. Assistance may be provided throughout the activity or intermittently. 3-Partial/Moderate Assistance-helper does LESS THAN HALF the effort. [place] lifts, holds or supports trunk or limbs, but provides less than half the effort. 2-Substantial/Maximal Assistance-helper does MORE THAN HALF the effort. [place] lifts or holds trunk or limbs and provides more than half the effort. 8-Iojknkqta-ynqkha does ALL the effort. Patient does none of the effort to complete the activity. Or, the assistance of 2 or more helpers is required for the patient to complete the activity. If activity was not attempted, code reason: 7-Patient Refused. 9-Not Applicable-not attempted and the patient did not perform the activity before the current illness, exacerbation or injury. 10-Not Attempted due to Environmental Limitations-(lack of equipment, weather restraints, etc.). 88-Not Attempted due to Medical Conditions or Safety Concerns. Bathing Location: L Arm, R Arm, L Upper Leg, R Upper Leg, Chest, Abdomen Shower/Bathe Self (QC): 6 (per clinical judgement) Upper Body Dressing (QC): 6 Lower Body Dressing (QC): 6 On/Off Footwear: 6 Toileting Hygiene (QC): 6 (Per clinical judgemt) Toilet Transfer (QC): 6 (Per clincial judgemt) Other Treatment Pt participated in functional mobility task from room to therapy gym for increased safety and independence once discharged home. Pt completed x15 min arm bike at min resistance to increase BUE strength for improved independence with ADLs. Pt tolerated task well and no resting breaks. Pt participated in functional BUE ROM task of reaching across midline while seated to grasp pegs with 1lb weight around each wrist and push them onto peg board. Pt ambulated back to room using FWW with supervision. Pt transferred to EOB. Pt doffed footwear using figure 4 technique. After session pt laying in bed and ex- present in room. Call light in reach and all needs met. Education OT Patient Education: Energy conservation, Exercise program, Purpose of tx/functional activities Teaching Recipient: Patient Teaching Methods: Demonstration, Discussion Response to Teaching: Verbalize Understanding, Return Demonstration OT Short Term Goals Short Term Goals Time Frame: Jun 22, 2021 Eatin Oral hygiene: 5 Toileting hygiene: 5 Shower/bathe self: 5 Upper body dressin Lower body dressin Putting on/taking off footwear: 5 OT Teacher Specialist Goals Teacher Specialist Goals Time Frame: Jun 26, 2021 Eating (QC): 6 (Met per clincial judgement ) Oral Hygiene (QC): 6 (Met) Toileting Hygiene (QC): 6 (Met per clincal judgement ) Shower/Bathe Self (QC): 6 (Met per clincial judgement ) Upper Body Dressing (QC): 6 (Met ) Lower Body Dressing (QC): 6 (Met) On/Off Footwear (QC): 6 (met) 1=Demonstrate adherence to instructed precautions during ADL tasks. 2=Patient will verbalize/demonstrate understanding of assistive devices/modifications for ADL. 3=Patient will improve strength/tolerance for activity to enable patient to perform ADL's. OT Education/Plan Problem List/Assessment Assessment: Decreased Activ Tolerance, Decreased UE Strength, Impaired I ADL's, Impaired Self-Care Skills Discharge Recommendations Plan/Recommendations: Continue POC Treatment Plan/Plan of Care Patient would benefit from OT for education, treatment and training to promote independence in ADL's, mobility, safety and/or upper extremity function for ADL's. Plan of Care: ADL Retraining, Cognitive Retraining, Functional Mobility, Group Exercise/Act as Ind, UE Funct Exercise/Act Treatment Duration: Jun 26, 2021 Frequency: At least 5 of 7 days/Wk (IRF) Estimated Hrs Per Day: 1.5 hours per day Agreement: Yes Rehab Potential: Fair Time/GCodes Start Time: 09:30 Stop Time: 10:45 Total Time Billed (hr/min): 75 Billed Treatment Time 1 visit- ADL 3 (42 mins) EX 1 (15 mins) FA 1 (18 mins) DIANA FRENCH Jun 23, 2021 10:55
[2021-06-23] MEDS: DOCUSATE SODIUM 100 MG (COLACE) CAP PO SCH ×2 (12:00→21:04)
[2021-06-23] MEDS: SENNA W/DOCUSATE (SENOKOT S) TABLET PO SCH ×2 (12:00→21:04)
[2021-06-23] MEDS: polyethylene glycoL POWDER 17 GM (MIRALAX) PACK PO SCH ×2 (12:00→21:04)
--- NOTE | 2021-06-23 14:27 | Therapy Team Discharge Summary ---
Therapy Discharge Summary Discharge Recommendations Date of Discharge Physical Therapy Roll Left to Right (QC): 6 Sit to Lying (QC): 6 Lying to Sitting/Side of Bed(Q: 6 Sit to Stand (QC): 6 Chair/Zbp-ie-Drsju Xfer(QC): 6 Toilet Transfer (QC): 6 Car Transfer (QC): 6 Does the Patient Walk: Yes Mode of Locomotion: Walk Anticipated Mode of Locomotion: Walk Walk 10 feet (QC): 6 Walk 50 ft with 2 Turns(QC): 6 Walk 150 ft (QC): 6 Walking 10ft on uneven surface: 6 Gait Assistive Device: FWW Does the Pt Use a Wheelchair: No Wheel 50 ft with 2 turns (QC): 09 Wheel 150 ft (QC): 09 Type of Wheelchair: N/A #of Steps: 16 1 Step (curb) (QC): 6 4 Steps (QC): 6 12 Steps (QC): 6 Balance Sitting Static: Normal Balance Sitting Dynamic: Normal Balance-Standing Static: Normal Picking up an Object (QC): 6 Occupational Therapy Decreased Activ Tolerance, Decreased UE Strength, Impaired I ADL's, Impaired Self-Care Skills Eating (QC): 6 Oral Hygiene (QC): 6 Shower/Bathe Self (QC): 6 (per clinical judgement) Upper Body Dressing (QC): 6 Lower Body Dressing (QC): 6 On/Off Footwear (QC): 6 Toileting Hygiene (QC): 6 (Per clinical judgemt) Speech-Language Pathology Expression of Ideas/Wants: Exhibits (3) Understanding Verbal Content: Usually Understands (3) Brief Interview-Mental Status: Yes Repetition of Three Words: Three (3) Temporal Orientation: Year: Correct (3) Temporal Orientation: Month: Accurate within 5 days(2) Temporal Orientation: Day: Correct (1) Recall : Wear to say "Sock": Yes, no cue required (2) Recall : Color: Yes, no cue required (2) Recall : Bed: Yes, no cue required (2) Memory/Recall Ability: Current season, That he or she is in a hsp/hsp unit The patient displayed moderate cognitive linguistic deficits upon admission, most notably in the areas of attention, memory and executive functioning. The patient displayed cognitive deficits at baseline, therefore, large growth in these areas were not expected by the clinician. The patient does display progress with safety awareness throughout her stay, however, continues to display reduced attention and requires consistent redirection to task and topic. PT Shelter Goals Shelter Goals PT Roller Maker Goals Time Frame: Jul 08, 2021 Roll Left to Right (QC): 6 Sit to Lying (QC): 6 Lying-Sitting on Side/Bed(QC): 6 Sit to Stand (QC): 6 Chair/Hfg-mc-Lvegl Xfer(QC): 6 Car Transfer (QC): 6 Does the Patient Walk: Yes Walk 10 feet (QC): 6 Walk 10ft-Uneven Surface(QC): 6 Walk 50ft with 2 Turns (QC): 6 Walk 150 ft (QC): 6 Does the Pt use WC or Scooter?: No Wheel 50 feet with 2 turns (QC: 09 1 Step (curb) (QC): 6 4 Steps (QC): 6 12 Steps (QC): 6 Picking up an Object (QC): 6 OT Shelter Goals Roller Maker Goals Time Frame: Jun 26, 2021 Eating (QC): 6 (Met per clincial judgement ) Oral Hygiene (QC): 6 (Met) Shower/Bathe Self (QC): 6 (Met per clincial judgement ) Upper Body Dressing (QC): 6 (Met ) Lower Body Dressing (QC): 6 (Met) On/Off Footwear (QC): 6 (met) Toileting Hygiene (QC): 6 (Met per clincal judgement ) Toilet/Commode Transfer (QC): 6 1=Demonstrate adherence to instructed precautions during ADL tasks. 2=Patient will verbalize/demonstrate understanding of assistive devices/modifications for ADL. 3=Patient will improve strength/tolerance for activity to enable patient to perform ADL's. Speech Shelter Goals Roller Maker Goals 1. The patient will display improved cognitive linguistic skills for safe discharge to the least restrictive environment. MET Time Frame: Two Weeks. CARL PICKARD Jun 23, 2021 14:27
[2021-06-23 19:26] VITALS: BP 118/72
[2021-06-24] MEDS ORDERED: INSU100I32 SQ (05:38)
[2021-06-24] MEDS ORDERED: DEXA4TAB PO (05:38)
[2021-06-24] MEDS ORDERED: INSU100I14 SQ ×2 (05:38)
--- NOTE | 2021-06-24 05:39 | Discharge Summary ---
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 Type 2 diabetes [id number] due to steroids HTN HLD COPD Fatty liver disease Anxiety Mental illness with personality disorder Hypoglycemic episode 06/17/2021 Impulsive behavior so she is a fall risk Plan: Aggressive rehab Radiation treatment Supportive correction meds 06/17/2021: Adjust insulin due to hypoglycemia Supportive care 06/18/2021: Supportive care Insulin Monitor sugars 06/19/2021: Monitor sugars 06/20/2021: Monitor sugars Bowel regimen 06/21/2021: Supportive care Insulin 06/22/2021: Supportive care Discharge Tuesday06/23/2021: Supportive care Discharge tomorrow (1) Cerebellar mass Status: Acute (2) Personality disorder (3) Diabetes mellitus (4) Former smoker (5) Ataxia Status: Acute (6) Cerebral edema Status: Acute Discharge Summary Discharge Physical Examination Allergies: Coded Allergies: latex (Verified Allergy, Mild, rash, 12/10/14) ampicillin (Unverified Allergy, Unknown, 02/07/14) cetirizine HCl (Unverified Allergy, Unknown, 02/07/14) dimenhydrinate (Unverified Allergy, Unknown, 02/07/14) metformin HCl (Unverified Adverse Reaction, Unknown, 02/07/14) CAN TAKE METFORMIN Vitals & I&Os Vital Signs Date Time Temp Pulse Resp B/P (MAP) Pulse Ox O2 Delivery O2 Flow Rate FiO2 06/24/21 10:15 36.2 87 18 109/70 94 Room Air General Appearance: Alert, Oriented X3, Cooperative Respiratory: Clear to Auscultation Cardiovascular: Regular Rate Neuro: Normal Gait, Normal Speech, Strength at 5/5 X4 Ext Psych/Mental Status: Mental Status NL Hospital Course Was the Problem List Reviewed?: Yes Hospital course: Patient had an uneventful hospital course after she was admitted from status post craniotomy. Blood sugars being very elevated due to Decadron required for brain edema. Labs remained stable. Pain was well controlled she tolerated therapy and marked on impulsivity and fall risk. Overall she had no complications during her hospital course and regain enough function to remain independent and go home ex- who lives in her home. Labs (last 24 hrs) Laboratory Tests 06/16/21 21:17: Glucometer 341H 06/17/21 06:24: White Blood Count 13.6H, Red Blood Count 4.21, Hemoglobin 12.5, Hematocrit 37, Mean Corpuscular Volume 88, Mean Corpuscular Hemoglobin 30, Mean Corpuscular Hemoglobin Concent 34, Red Cell Distribution Width 14.2, Platelet Count 308, Mean Platelet Volume 9.8, Immature Granulocyte % (Auto) 2, Neutrophils (%) (Auto) 53, Lymphocytes (%) (Auto) 37, Monocytes (%) (Auto) 5, Eosinophils (%) (Auto) 2, Basophils (%) (Auto) 0, Neutrophils # (Auto) 7.3, Lymphocytes # (Auto) 5.0H, Monocytes # (Auto) 0.7, Eosinophils # (Auto) 0.3, Basophils # (Auto) 0.0, Immature Granulocyte # (Auto) 0.3H, Sodium Level 133L, Potassium Level 4.4, Chloride Level 99, Carbon Dioxide Level 23, Anion Gap 11, Blood Urea Nitrogen 24H, Creatinine 0.85, Estimat Glomerular Filtration Rate 74, BUN/Creatinine Ratio 28, Glucose Level 149H, Calcium Level 9.1, Corrected Calcium 9.3, Total Bilirubin 0.5, Aspartate Amino Transf (AST/SGOT) 19, Alanine Aminotransferase (ALT/SGPT) 31, Alkaline Phosphatase 29L, Total Protein 6.5, Albumin 3.8 06/17/21 06:35: Glucometer 144H 06/17/21 10:56: Glucometer 190H 06/17/21 15:22: Glucometer 41*L 06/17/21 16:07: Glucometer 137H 06/17/21 20:03: Glucometer 263H 06/18/21 07:03: Glucometer 122H 06/18/21 11:03: Glucometer 313H 06/19/21 05:57: Glucometer 236H 06/20/21 10:06: Glucometer 117H 06/20/21 10:53: Glucometer 106 06/20/21 15:35: Glucometer 256H 06/20/21 21:06: Glucometer 239H 06/21/21 01:24: Glucometer 323H 06/21/21 05:10: Glucometer 229H 06/21/21 11:22: Glucometer 216H 06/21/21 16:14: Glucometer 326H 06/21/21 20:25: Glucometer 200H 06/22/21 06:19: Glucometer 186H 06/22/21 06:49: White Blood Count 11.0, Red Blood Count 4.40, Hemoglobin 12.9, Hematocrit 39, Mean Corpuscular Volume 90, Mean Corpuscular Hemoglobin 29, Mean Corpuscular Hemoglobin Concent 33, Red Cell Distribution Width 14.6H, Platelet Count 302, Mean Platelet Volume 9.8, Immature Granulocyte % (Auto) 1, Neutrophils (%) (Auto) 49, Lymphocytes (%) (Auto) 43, Monocytes (%) (Auto) 5, Eosinophils (%) (Auto) 2, Basophils (%) (Auto) 0, Neutrophils # (Auto) 5.4, Lymphocytes # (Auto) 4.7H, Monocytes # (Auto) 0.6, Eosinophils # (Auto) 0.2, Basophils # (Auto) 0.0, Immature Granulocyte # (Auto) 0.1, Sodium Level 134L, Potassium Level 4.6, Chloride Level 100, Carbon Dioxide Level 21, Anion Gap 13, Blood Urea Nitrogen 31H, Creatinine 1.12, Estimat Glomerular Filtration Rate 53, BUN/Creatinine Ratio 28, Glucose Level 176H, Calcium Level 9.5, Corrected Calcium 9.5, Total Bilirubin 0.6, Aspartate Amino Transf (AST/SGOT) 17, Alanine Aminotransferase (ALT/SGPT) 30, Alkaline Phosphatase 28L, Total Protein 6.8, Albumin 4.0 06/22/21 17:26: Glucometer 224H 06/22/21 20:40: Glucometer 298H 06/23/21 05:38: Glucometer 183H 06/23/21 10:53: Glucometer 89 06/23/21 15:14: Glucometer 225H 06/23/21 20:05: Glucometer 142H 06/24/21 05:43: Glucometer 229H Pending Labs Laboratory Tests 06/16/21 21:17: Glucometer 341 06/17/21 06:24: White Blood Count 13.6, Red Blood Count 4.21, Hemoglobin 12.5, Hematocrit 37, Mean Corpuscular Volume 88, Mean Corpuscular Hemoglobin 30, Mean Corpuscular Hemoglobin Concent 34, Red Cell Distribution Width 14.2, Platelet Count 308, Mean Platelet Volume 9.8, Immature Granulocyte % (Auto) 2, Neutrophils (%) (Auto) 53, Lymphocytes (%) (Auto) 37, Monocytes (%) (Auto) 5, Eosinophils (%) (Auto) 2, Basophils (%) (Auto) 0, Neutrophils # (Auto) 7.3, Lymphocytes # (Auto) 5.0, Monocytes # (Auto) 0.7, Eosinophils # (Auto) 0.3, Basophils # (Auto) 0.0, Immature Granulocyte # (Auto) 0.3, Sodium Level 133, Potassium Level 4.4, Chloride Level 99, Carbon Dioxide Level 23, Anion Gap 11, Blood Urea Nitrogen 24, Creatinine 0.85, Estimat Glomerular Filtration Rate 74, BUN/Creatinine Ratio 28, Glucose Level 149, Calcium Level 9.1, Corrected Calcium 9.3, Total Bilirubin 0.5, Aspartate Amino Transf (AST/SGOT) 19, Alanine Aminotransferase (ALT/SGPT) 31, Alkaline Phosphatase 29, Total Protein 6.5, Albumin 3.8 06/17/21 06:35: Glucometer 144 06/17/21 10:56: Glucometer 190 06/17/21 15:22: Glucometer 41 06/17/21 16:07: Glucometer 137 06/17/21 20:03: Glucometer 263 06/18/21 07:03: Glucometer 122 06/18/21 11:03: Glucometer 313 06/19/21 05:57: Glucometer 236 06/20/21 10:06: Glucometer 117 06/20/21 10:53: Glucometer 106 06/20/21 15:35: Glucometer 256 06/20/21 21:06: Glucometer 239 06/21/21 01:24: Glucometer 323 06/21/21 05:10: Glucometer 229 06/21/21 11:22: Glucometer 216 06/21/21 16:14: Glucometer 326 06/21/21 20:25: Glucometer 200 06/22/21 06:19: Glucometer 186 06/22/21 06:49: White Blood Count 11.0, Red Blood Count 4.40, Hemoglobin 12.9, Hematocrit 39, Mean Corpuscular Volume 90, Mean Corpuscular Hemoglobin 29, Mean Corpuscular Hemoglobin Concent 33, Red Cell Distribution Width 14.6, Platelet Count 302, Mean Platelet Volume 9.8, Immature Granulocyte % (Auto) 1, Neutrophils (%) (Auto) 49, Lymphocytes (%) (Auto) 43, Monocytes (%) (Auto) 5, Eosinophils (%) (Auto) 2, Basophils (%) (Auto) 0, Neutrophils # (Auto) 5.4, Lymphocytes # (Auto) 4.7, Monocytes # (Auto) 0.6, Eosinophils # (Auto) 0.2, Basophils # (Auto) 0.0, Immature Granulocyte # (Auto) 0.1, Sodium Level 134, Potassium Level 4.6, Chloride Level 100, Carbon Dioxide Level 21, Anion Gap 13, Blood Urea Nitrogen 31, Creatinine 1.12, Estimat Glomerular Filtration Rate 53, BUN/Creatinine Ratio 28, Glucose Level 176, Calcium Level 9.5, Corrected Calcium 9.5, Total Bilirubin 0.6, Aspartate Amino Transf (AST/SGOT) 17, Alanine Aminotransferase (ALT/SGPT) 30, Alkaline Phosphatase 28, Total Protein 6.8, Albumin 4.0 06/22/21 17:26: Glucometer 224 06/22/21 20:40: Glucometer 298 06/23/21 05:38: Glucometer 183 06/23/21 10:53: Glucometer 89 06/23/21 15:14: Glucometer 225 06/23/21 20:05: Glucometer 142 06/24/21 05:43: Glucometer 229 Discharge Home Medications: Active Scripts Active Dexamethasone 4 Mg Tablet 4 Mg PO BID WITH MEALS Tresiba Flextouch U-100 (Insulin Degludec) 100 Unit/1 Ml Insuln.pen 25 Unit SQ BID 14 Days Novolog Flexpen (Insulin Aspart) 300 Units/3 Ml Solution 15 Units SQ 1200 W/MEAL 14 Days USE ADDITIONAL SLIDING SCALE IF NEEDED Novolog Flexpen (Insulin Aspart) 300 Units/3 Ml Solution 15 Units SQ BID WITH MEALS 14 Days USE ADDITIONAL SLIDING SCALE IF NEEDED Reported Pravastatin Sodium 40 Mg Tablet 20 Mg PO HS Trazodone HCl 100 Mg Tablet 100 Mg PO HS Oxybutynin Chloride 5 Mg Tablet 5 Mg PO HS Ozempic (Semaglutide) 1 Mg/0.75 Ml Pen.injctr 1 Mg SQ WED Pantoprazole Sodium 40 Mg Tablet.dr 40 Mg PO 1800 Oxybutynin Chloride 5 Mg Tablet 10 Mg PO DAILY TAKES 2 (5MG) TABLET Multivitamin 1 Each Tablet 1 Each PO DAILY Flaxseed Oil 1,000 Mg Capsule 1,000 Mg PO BID Fenofibrate (Fenofibrate Nanocrystallized) 145 Mg Tablet 145 Mg PO 1800 Duloxetine HCl 60 Mg Capsule.dr 60 Mg PO DAILY Aspirin EC (Aspirin) 81 Mg Tablet.dr 81 Mg PO HS Instructions to patient/family Please see electronic discharge instructions given to patient. Diagnosis/Problems Diagnosis/Problems (1) Cerebellar mass Status: Acute (2) Personality disorder (3) Diabetes mellitus (4) Former smoker (5) Ataxia Status: Acute (6) Cerebral edema Status: Acute MADHURI MCCRARY DO Jun 24, 2021 05:39
--- NOTE | 2021-06-24 05:39 | D/C HH Face to Face Order ---
D/C Face to Face Orders Reconcile Patient Problems Problems Reviewed?: Yes Instructions for Patient Via [facility], Patient Instructions/FollowUp: PCP 1 week Physician to follow Patient: PCP Discharge Diet for Home: ADA Diet Patient Problems: Craniotomy Patient Data-Allergies,Ht & Wt Patient Allergies: Coded Allergies: latex (Verified Allergy, Mild, rash, 12/10/14) ampicillin (Unverified Allergy, Unknown, 02/07/14) cetirizine HCl (Unverified Allergy, Unknown, 02/07/14) dimenhydrinate (Unverified Allergy, Unknown, 02/07/14) metformin HCl (Unverified Adverse Reaction, Unknown, 02/07/14) CAN TAKE METFORMIN Height (Feet): 5 Height (Inches): 3.50 Weight (Pounds): 179 Home Health Need/Face to Face Date of Face to Face: Jun 24, 2021 Clinical Findings: Generalized weakness and fatigue, Instability, Muscle weakness I have seen Pt [id number]: Yes Discharged To: Home Diagnosis/Conditions: Craniotomy Patient is Homebound due to: Enmanuel fall risk due to instabilty, Muscle weakness Homebound Status Due to the above stated illness, injury or surgical procedure (medical condition or diagnosis) and associated clinical findings, the patient is homebound because of his/her inability to leave home except with aid of a supportive device and/or person AND leaving the home requires a considerable and taxing effort or is medically contraindicated. Pt req the following assistanc: Walker Home Health Nursing Orders Home Health Services Order: Nursing Services, Diabetologist-Evaluate & Treat, Physical Therapy-Evaluate & Treat Certify Stmt I certify that this patient is under my care and that I, a nurse practitioner or a physician; a visitor service assistant working with me, had a face to face encounter that - meets the physician face to face encounter requirements with this patient as dated. MADHURI MCCRARY DO Jun 24, 2021 05:39
[2021-06-24] MEDS: inSUlin ASPART (NovoLOG) 1 UNIT/0.01 ML (CHARGE PER UNIT) SC SCH (06:40)
[2021-06-24] MEDS: MULTIVIT W/MINERALS TAB (THERAGRAN M) PO SCH (06:40)
[2021-06-24 07:28] VITALS: BP 109/70
[2021-06-24] MEDS: polyethylene glycoL POWDER 17 GM (MIRALAX) PACK PO SCH (08:04)
[2021-06-24] MEDS: DOCUSATE SODIUM 100 MG (COLACE) CAP PO SCH (08:04)
[2021-06-24] MEDS: SENNA W/DOCUSATE (SENOKOT S) TABLET PO SCH (08:04)
--- NOTE | 2021-06-24 08:06 | Therapy Team Discharge Summary ---
Therapy Discharge Summary Discharge Recommendations Date of Discharge Physical Therapy Patient came to rehab with debility following craniotomy. Upon evaluation patient performed rolling and supine <-> sit with independence, sit <-> stand and transfers with CGA, car transfer CGA, ambulated 150' with a rolling walker with CGA (including 50' with at least 2 turns of 90 degrees but needed min assist to ambulate 10' over an uneven surface), went up and down 12 steps using 2 handrails with min assist, and picked up an object from the floor with min assist. Patient has been performing bed mobility and transfer training, balance and endurance training, functional strengthening, stair training, gait training, and education. Patient has made good progress and has met all of her intermodal truck driver goals. Now, patient performs bed mobility and transfers with independence, car transfer independent, ambulates 500' with a rolling walker with independence (including 50' with at least 2 turns of 90 degrees and 10' over an uneven surface), can go up and down 16 steps using 2 handrails with independence, and can sweet pickled fruit maker an object from the floor with independence. Patient is being discharged from this facility today and will be discharged from PT at this time. Roll Left to Right (QC): 6 Sit to Lying (QC): 6 Lying to Sitting/Side of Bed(Q: 6 Sit to Stand (QC): 6 Chair/Mjp-yh-Bjcuy Xfer(QC): 6 Toilet Transfer (QC): 5 Car Transfer (QC): 6 Does the Patient Walk: Yes Mode of Locomotion: Walk Anticipated Mode of Locomotion: Walk Walk 10 feet (QC): 6 Walk 50 ft with 2 Turns(QC): 6 Walk 150 ft (QC): 6 Walking 10ft on uneven surface: 6 Gait Assistive Device: FWW Does the Pt Use a Wheelchair: No Wheel 50 ft with 2 turns (QC): 09 Wheel 150 ft (QC): 09 Type of Wheelchair: N/A #of Steps: 16 1 Step (curb) (QC): 6 4 Steps (QC): 6 12 Steps (QC): 6 Balance Sitting Static: Normal Balance Sitting Dynamic: Normal Balance-Standing Static: Normal Picking up an Object (QC): 6 Occupational Therapy Decreased Activ Tolerance, Decreased UE Strength, Impaired I ADL's, Impaired Self-Care Skills Eating (QC): 6 Oral Hygiene (QC): 6 Shower/Bathe Self (QC): 6 (per clinical judgement) Upper Body Dressing (QC): 6 Lower Body Dressing (QC): 6 On/Off Footwear (QC): 6 Toileting Hygiene (QC): 6 (Per clinical judgemt) PT Residential Goals Residential Goals PT Residential Goals Time Frame: Jul 08, 2021 Roll Left to Right (QC): 6 Sit to Lying (QC): 6 Lying-Sitting on Side/Bed(QC): 6 Sit to Stand (QC): 6 Chair/Wmf-tj-Pdiyb Xfer(QC): 6 Car Transfer (QC): 6 Does the Patient Walk: Yes Walk 10 feet (QC): 6 Walk 10ft-Uneven Surface(QC): 6 Walk 50ft with 2 Turns (QC): 6 Walk 150 ft (QC): 6 Does the Pt use WC or Scooter?: No Wheel 50 feet with 2 turns (QC: 09 1 Step (curb) (QC): 6 4 Steps (QC): 6 12 Steps (QC): 6 Picking up an Object (QC): 6 OT Residential Goals Residential Goals Time Frame: Jun 26, 2021 Eating (QC): 6 (Met per clincial judgement ) Oral Hygiene (QC): 6 (Met) Shower/Bathe Self (QC): 6 (Met per clincial judgement ) Upper Body Dressing (QC): 6 (Met ) Lower Body Dressing (QC): 6 (Met) On/Off Footwear (QC): 6 (met) Toileting Hygiene (QC): 6 (Met per clincal judgement ) Toilet/Commode Transfer (QC): 6 1=Demonstrate adherence to instructed precautions during ADL tasks. 2=Patient will verbalize/demonstrate understanding of assistive devices/modifications for ADL. 3=Patient will improve strength/tolerance for activity to enable patient to perform ADL's. Speech Residential Goals Residential Goals 1. The patient will display improved cognitive linguistic skills for safe discharge to the least restrictive environment. MET Time Frame: Two Weeks. RADHA STEVENS PT Jun 24, 2021 08:06
[2021-06-24] MEDS: FENOFIBRATE 134 MG (LOFIBRA) CAPSULE PO SCH (09:02)
[2021-06-24] MEDS: OXYBUTYNIN (DITROPAN) 5 MG TAB PO SCH (09:02)
[2021-06-24] MEDS: ASPIRIN E.C. 81 MG (ECOTRIN) TAB PO SCH (09:02)
[2021-06-24] MEDS: ROSUVASTATIN 20 MG (CRESTOR) TABLET PO SCH (09:02)
[2021-06-24] MEDS: PANTOPRAZOLE 40 MG (PROTONIX) TAB PO SCH (09:02)
[2021-06-24] MEDS: ENOXAPARIN 40 MG/0.4 ML (LOVENOX) SYR SC SCH (09:03)
[2021-06-24] MEDS: DULoxetine 30 MG (CYMBALTA) CAP PO SCH (09:03)
[2021-06-24 10:15] VITALS: BP 109/70
--- NOTE | 2021-06-24 13:43 | Therapy Team Discharge Summary ---
Therapy Discharge Summary Discharge Recommendations Date of Discharge Jun 24, 2021 at 10:00 Therapy D/C Recommendations: Home w/ Family Support, Occupational Therapy Home Care, Homemaker Support (continued homemaker support from construction carpenters helper) Physical Therapy Roll Left to Right (QC): 6 Sit to Lying (QC): 6 Lying to Sitting/Side of Bed(Q: 6 Sit to Stand (QC): 6 Chair/Bkm-br-Wttdl Xfer(QC): 6 Toilet Transfer (QC): 5 Car Transfer (QC): 6 Does the Patient Walk: Yes Mode of Locomotion: Walk Anticipated Mode of Locomotion: Walk Walk 10 feet (QC): 6 Walk 50 ft with 2 Turns(QC): 6 Walk 150 ft (QC): 6 Walking 10ft on uneven surface: 6 Gait Assistive Device: FWW Does the Pt Use a Wheelchair: No Wheel 50 ft with 2 turns (QC): 09 Wheel 150 ft (QC): 09 Type of Wheelchair: N/A #of Steps: 16 1 Step (curb) (QC): 6 4 Steps (QC): 6 12 Steps (QC): 6 Balance Sitting Static: Normal Balance Sitting Dynamic: Normal Balance-Standing Static: Normal Picking up an Object (QC): 6 Occupational Therapy Patient admitted to rehab with debility following a craniotomy. Upon evaluation, she was min a for upper body dressing, cga for oral care, bathing, lower body dressing, and toileting, and set up for eating and footwear. During her rehab stay, OT focused on improving endurance, safety, energy conservation, attention, UE strength, FM control/coordination, and sequencing in order to improve safety and indep in adls and functional transfers. Patient has made good progress and has met all of her correction goals. She is now indep with all adls except donning a sports bra which pt required assist with prior to admission. Patient is being discharged from this facility today and will be discharged from OT at this time. Decreased Activ Tolerance, Decreased UE Strength, Impaired I ADL's, Impaired Self-Care Skills Eating (QC): 6 Oral Hygiene (QC): 6 Shower/Bathe Self (QC): 6 (per clinical judgement) Upper Body Dressing (QC): 6 Lower Body Dressing (QC): 6 On/Off Footwear (QC): 6 Toileting Hygiene (QC): 6 (Per clinical judgemt) PT Front Desk Associate Goals Fpc Goals PT Fpc Goals Time Frame: Jul 08, 2021 Roll Left to Right (QC): 6 Sit to Lying (QC): 6 Lying-Sitting on Side/Bed(QC): 6 Sit to Stand (QC): 6 Chair/Pev-yb-Acfbm Xfer(QC): 6 Car Transfer (QC): 6 Does the Patient Walk: Yes Walk 10 feet (QC): 6 Walk 10ft-Uneven Surface(QC): 6 Walk 50ft with 2 Turns (QC): 6 Walk 150 ft (QC): 6 Does the Pt use WC or Scooter?: No Wheel 50 feet with 2 turns (QC: 09 1 Step (curb) (QC): 6 4 Steps (QC): 6 12 Steps (QC): 6 Picking up an Object (QC): 6 OT Fpc Goals Front Desk Associate Goals Time Frame: Jun 26, 2021 Eating (QC): 6 (Met) Oral Hygiene (QC): 6 (Met) Shower/Bathe Self (QC): 6 (Met) Upper Body Dressing (QC): 6 (Met, min a for sports bra only which is pts baseline) Lower Body Dressing (QC): 6 (Met) On/Off Footwear (QC): 6 (met) Toileting Hygiene (QC): 6 (Met) Toilet/Commode Transfer (QC): 6 (met) 1=Demonstrate adherence to instructed precautions during ADL tasks. 2=Patient will verbalize/demonstrate understanding of assistive devices/modifications for ADL. 3=Patient will improve strength/tolerance for activity to enable patient to perform ADL's. Speech Front Desk Associate Goals Front Desk Associate Goals 1. The patient will display improved cognitive linguistic skills for safe discharge to the least restrictive environment. MET Time Frame: Two Weeks. Jenna Lauren OT Jun 24, 2021 13:43
== END 2021-06-24 10:00 | disposition home health service (06) | DRG 91 ==
PROVIDERS: ADMIT Internal Medicine; ATTEND Internal Medicine
DX: R26.0 Ataxic gait (principal); G93.6 Cerebral edema; C34.90 Malignant neoplasm of unspecified part of unspecified bronchus or lung; R53.1 Weakness; R41.89 Other symptoms and signs involving cognitive functions and awareness; Z48.3 Aftercare following surgery for neoplasm; J43.9 Emphysema, unspecified; E11.65 Type 2 diabetes mellitus with hyperglycemia; E11.649 Type 2 diabetes mellitus with hypoglycemia without coma; R45.87 Impulsiveness; F20.9 Schizophrenia, unspecified; F60.9 Personality disorder, unspecified; F32.A Depression, unspecified; F41.9 Anxiety disorder, unspecified; I10 Essential (primary) hypertension; E78.5 Hyperlipidemia, unspecified; E78.00 Pure hypercholesterolemia, unspecified; K21.9 Gastro-esophageal reflux disease without esophagitis; K57.90 Diverticulosis of intestine, part unspecified, without perforation or abscess without bleeding; K76.0 Fatty (change of) liver, not elsewhere classified; M19.91 Primary osteoarthritis, unspecified site; Z91.81 History of falling; Z87.891 Personal history of nicotine dependence; Z79.82 Long term (current) use of aspirin; Z79.4 Long term (current) use of insulin; Z88.0 Allergy status to penicillin; Z88.8 Allergy status to other drugs, medicaments and biological substances; Z91.040 Latex allergy status; T38.0X5A Adverse effect of glucocorticoids and synthetic analogues, initial encounter
CPT/HCPCS: 36415; 80053; 82947; 85025

== ENCOUNTER 2021-07-07 05:32 | Outpatient (CLI) | payer MEDICARE, MEDICAID ==
[~2021-07-07] VITALS: Ht 158 cm; Wt 71.2 kg
[~2021-07-07 05:32] MED LIST changes: +ACET325C7 PO; +ALB0.5V INH; +ASPI-1238 PO; +DEXA4TAB PO; +DULO60CA59 PO; +FLAX10004 PO; +HEPA50002 IJ; +INSU100I14 SQ; +INSU100I32 SQ; +MULT-1136 PO; +OXYB5TAB13 PO; +PANT40TA52 PO; +PRAV40TA2 PO; +ROSU20TA32 PO; +SEMA1PEN3 SQ; +SENN-109 PO; +TRAZ-227 PO
[2021-07-08] MEDS ORDERED: ACHD5005 PO (10:55)
== END 2021-07-07 09:50 ==
LOC: PREOP 05:32
PROVIDERS: ATTEND Surgery
DX: Z01.818 Encounter for other preprocedural examination (principal)

== ENCOUNTER 2021-07-08 07:38 | Day surgery (SDC) | payer MEDICARE, MEDICAID ==
[~2021-07-08] VITALS: Ht 158 cm; Wt 71.2 kg
[2021-07-08] VITALS (8 sets, daily range): BP systolic 83–135; BP diastolic 44–73
[2021-07-08] MEDS ORDERED: LACTATED RINGERS 1,000 ML IV PRN (08:15)
--- NOTE | 2021-07-08 08:26 | Progress Note-Pre Operative ---
Pre-Operative Progress Note H&P Reviewed The H&P was reviewed, patient examined and no changes noted. Time Seen by Provider: 08:12 Date H&P Reviewed: Jul 08, 2021 Time H&P Reviewed: 08:12 Pre-Operative Diagnosis: Metastatic Brain CA JOHN JONES DO Jul 08, 2021 08:26
[2021-07-08] MEDS ORDERED: CLINDAMYCIN 600 MG/50 ML IVPB 50 ML IV ONE (08:30)
[2021-07-08] MEDS ORDERED: HEParin (CENTRAL IV FLUSH) 500 UNIT/5 ML SYR ONE (09:25)
[2021-07-08] MEDS ORDERED: 0.9% SODIUM CHLORIDE PF INJ 20 ML VIAL ONE (09:25)
[2021-07-08] MEDS ORDERED: LIDOCAINE/EPI 1%-1:200,000 (XYLOCAINE) 30 ML VIAL ONE (09:26)
[2021-07-08 10:12] LABS: BASOPHILS % (AUTO) 0 % (0-10); EOSINOPHILS % (AUTO) 0 % (0-10); HEMATOCRIT 37 % (35-52); HEMOGLOBIN 11.9 g/dL (11.5-16.0); LYMPHOCYTES # (AUTO) 1.8 10^3/uL (1.0-4.0); LYMPHOCYTES % (AUTO) 21 % (12-44); MEAN CORPUSCULAR HEMOGLOBIN 30 pg (25-34); MEAN CORPUSCULAR HGB CONC 32 g/dL (32-36); MEAN CORPUSCULAR VOLUME 93 fL (80-99); MEAN PLATELET VOLUME 9.1 fL (9.0-12.2); MONOCYTES # (AUTO) 0.5 10^3/uL (0.0-1.0); MONOCYTES % (AUTO) 6 % (0-12); NEUTROPHILS # (AUTO) 6.2 10^3/uL (1.8-7.8); NEUTROPHILS % (AUTO) 72 % (42-75); PLATELET COUNT 222 10^3/uL (130-400); WHITE BLOOD COUNT 8.7 10^3/uL (4.3-11.0)
[2021-07-08] MEDS ORDERED: MIDAZOLAM 2 MG/2 ML (VERSED) VIAL ONE (10:19)
[2021-07-08] MEDS ORDERED: LIDOCAINE PF 2% 5 ML (XYLOCAINE) VIAL ONE (10:19)
[2021-07-08] MEDS ORDERED: PROPOFOL INJECTION 50 ML IV ONE (10:19)
[2021-07-08 10:33] LABS: ALBUMIN 3.3 GM/DL (3.2-4.5); BILIRUBIN,TOTAL 0.4 MG/DL (0.1-1.0); CALCIUM 8.6 MG/DL (8.5-10.1); CREATININE SERUM 0.76 MG/DL (0.60-1.30); POTASSIUM 3.9 MMOL/L (3.6-5.0); TOTAL PROTEIN 5.3 GM/DL (6.4-8.2)
[2021-07-08 10:45] LABS: BAND NEUTROPHILS 0 %; BASOPHILS % (MANUAL) 0 %; EOSINOPHILS % (MANUAL) 0 %; LYMPHOCYTES % (MANUAL) 19 %; MONOCYTES % (MANUAL) 5 %; NEUTROPHILS % (MANUAL) 76 %; RBC MORPH NORMAL
[2021-07-08 10:54] LABS: FREE T4 (FREE THYROXINE) 0.81 NG/DL (0.70-1.48)
--- NOTE | 2021-07-08 10:54 | Progress Note-Post Operative ---
Post-Operative Progess Note Surgeon (s)/[employer] (s) Surgeon JOHN JONES DO [employer] Guard: none Pre-Operative Diagnosis Metastatic Brain CA Post-Operative Diagnosis same Procedure & Operative Findings Date of Procedure 07/08/21 Procedure Performed/Findings Tania-cath placement PROCEDURE: The patient was taken to the operating suite, was prepped and draped in the sterile fashion. A surgical pause was performed. Local anesthetic was infiltrated at the clavicle and along the tract to the right anterior chest, where more local was placed so the pocket could be created. Using an 18 gauge finder needle with negative inspiration the right subclavian vein was accessed on the first attempt and dark nonpulsatile blood was withdrawn. The wire was inserted and fluoroscopy assured proper placement. The needle was removed. The regular wire was inserted and fluoroscopy assured proper placement. The wire was then secured. A #11 blade scalpel was used to make an incision over the right chest and along guidewire. Cautery was used to dissect down to the pectoral fascia. A pocket was created with blunt dissection. The dilator sheath was then advanced over the wire under fluoroscopy and the dilator and wire were removed. The Groshong catheter was inserted through the sheath and the sheath was then removed. The Groshong wire was removed. The catheter was then tunneled to the right chest pocket. Fluoroscopy was used to cut to length and this was then attached to the port which was then placed within the pocket. The port was then accessed without difficulty. It was then flushed with saline and then heparin. The subcutaneous tissues were then reapproximated using 3-0 Vicryl. Finally the skin was closed with 4-0 undyed monocryl, 3 interrupted sutures. The areas were then washed and dried. Skin Affix was placed over incision. The insertion point of the neck Skin Affix was placed over the incision. The patient tolerated the procedure well without complication and was taken to recovery room in stable condition. Anesthesia Type IV sedation by anesthesia Estimated Blood Loss Estimated blood loss (mL): less than 5ml Specimens/Packing Specimens Removed JOHN Nicole DO Jul 08, 2021 10:54
[2021-07-08] MEDS ORDERED: ACHD5005 PO (10:55)
--- NOTE | 2021-07-08 10:56 | Discharge Inst-Surgical ---
Discharge Inst-Surgical Depart Medication/Instructions New, Converted or Re-Newed RX: Transmitted to Pharmacy Patient Instructions Follow up Appt: Make appointment for 1 week. [phone] Instructions: No lifting greater than 20 pounds. No strenuous activity. May shower in 24 hours, no tub bath or soaking. Use incentive spirometer at home as directed. No Smoking Skin/Wound Care: May remove bandages in am. You need to leave the Dermabond on incision it will fall off on it's own. Symptoms to Report: Appetite Changes, Extremity Discoloration, Numbness/Tingling, Swelling Increased, Bleeding Excessive, Eyesight Changes, Pain Increased, Urine Color Change, Constipation(Persistent), Fever over 101 degree F, Pain/Pressure in chest, Urinating Difficulty, Cough Up/Vomit Blood, Heart Beat Irreg/Pounding, Pain/Pressure in jaw, Cramps in feet or legs, Lightheadedness, Pain/Pressure in shoulder, Diarrhea(Persistent), Memory Changes Suddenly, Questions/Concerns, Weight gain consecutive days, Dizziness/Fainting, Nausea/Vomiting, Shortness of Breath, Weight gain over 2 pounds If questions or concerns contact your physician Or seek help at emergency department. Activity Activity as Tolerated: Yes Driving Instructions: No Driving/Refer to Dr. Salas Discharge Diet: No Restrictions Diet After 24 Hours: Clear Liquid if Nauseous If Any Problems/Questions/Issu: Contact Your Physician, Go to Emergency Room Skin/Wound Care Infection Signs and Symptoms: Increased Redness, Foul Odor of Wound, Increased Drainage, Skin Itchy or Has a Rash, Increased Swelling, Temperature Above 101 F Stitches/Marlen/Dermabond Dis: JOHN Olson DO Jul 08, 2021 10:56
[2021-07-08] MEDS ORDERED: ONDANSETRON 4 MG/2 ML (SDV) Z0FRAN IVP PRN (11:15)
[2021-07-08] MEDS ORDERED: morphine INJ 10 MG/ML 1ML (SYR OR VIAL) IVP ONE (11:15)
--- NOTE | 2021-07-08 13:31 | Diagnostic Imaging Report ---
Catheter placement 3 seconds of fluoroscopy time utilized during central venous catheter placement. Impression: 3 seconds of actual fluoroscopy time during catheter placement. Dictated by: Dictated on workstation # [id number]
== END 2021-07-08 12:30 | disposition home or self-care (01) ==
LOC: SDC 07:38
PROVIDERS: ATTEND Surgery
DX: C79.31 Secondary malignant neoplasm of brain (principal); C34.90 Malignant neoplasm of unspecified part of unspecified bronchus or lung; I87.2 Venous insufficiency (chronic) (peripheral); E11.9 Type 2 diabetes mellitus without complications; Z79.4 Long term (current) use of insulin; Z87.891 Personal history of nicotine dependence
CPT/HCPCS: 36561; 76000; 80053; 82947; 84439; 84443; 85007; 85027; 87081; C1788; 36415

== ENCOUNTER → 2021-07-23 | Outpatient (RCR) | payer MEDICARE, MEDICAID ==
[2021-06-29 11:19] LABS: BASOPHILS % (AUTO) 0 % (0-10); EOSINOPHILS % (AUTO) 0 % (0-10); HEMATOCRIT 41 % (35-52); HEMOGLOBIN 13.5 g/dL (11.5-16.0); LYMPHOCYTES # (AUTO) 1.2 10^3/uL (1.0-4.0); LYMPHOCYTES % (AUTO) 12 % (12-44); MEAN CORPUSCULAR HEMOGLOBIN 30 pg (25-34); MEAN CORPUSCULAR HGB CONC 33 g/dL (32-36); MEAN CORPUSCULAR VOLUME 91 fL (80-99); MEAN PLATELET VOLUME 9.5 fL (9.0-12.2); MONOCYTES # (AUTO) 0.4 10^3/uL (0.0-1.0); MONOCYTES % (AUTO) 4 % (0-12); NEUTROPHILS # (AUTO) 8.5 10^3/uL (1.8-7.8); NEUTROPHILS % (AUTO) 83 % (42-75); PLATELET COUNT 298 10^3/uL (130-400); WHITE BLOOD COUNT 10.2 10^3/uL (4.3-11.0)
[2021-06-29 11:46] LABS: ALBUMIN 4.1 GM/DL (3.2-4.5); BILIRUBIN,TOTAL 0.5 MG/DL (0.1-1.0); CALCIUM 9.2 MG/DL (8.5-10.1); CREATININE SERUM 0.94 MG/DL (0.60-1.30); POTASSIUM 4.2 MMOL/L (3.6-5.0); TOTAL PROTEIN 6.8 GM/DL (6.4-8.2)
[2021-06-29 12:08] LABS: FREE T4 (FREE THYROXINE) 0.97 NG/DL (0.70-1.48)
[2021-07-13 09:20] LABS: BASOPHILS % (AUTO) 0 % (0-10); EOSINOPHILS % (AUTO) 0 % (0-10); HEMATOCRIT 38 % (35-52); HEMOGLOBIN 12.2 g/dL (11.5-16.0); LYMPHOCYTES # (AUTO) 1.5 10^3/uL (1.0-4.0); LYMPHOCYTES % (AUTO) 16 % (12-44); MEAN CORPUSCULAR HEMOGLOBIN 30 pg (25-34); MEAN CORPUSCULAR HGB CONC 32 g/dL (32-36); MEAN CORPUSCULAR VOLUME 94 fL (80-99); MEAN PLATELET VOLUME 9.2 fL (9.0-12.2); MONOCYTES # (AUTO) 0.6 10^3/uL (0.0-1.0); MONOCYTES % (AUTO) 6 % (0-12); NEUTROPHILS # (AUTO) 7.2 10^3/uL (1.8-7.8); NEUTROPHILS % (AUTO) 77 % (42-75); PLATELET COUNT 224 10^3/uL (130-400); WHITE BLOOD COUNT 9.4 10^3/uL (4.3-11.0)
[2021-07-13 09:35] LABS: ALBUMIN 3.4 GM/DL (3.2-4.5); BILIRUBIN,TOTAL 0.5 MG/DL (0.1-1.0); CALCIUM 8.5 MG/DL (8.5-10.1); CREATININE SERUM 0.86 MG/DL (0.60-1.30); POTASSIUM 3.9 MMOL/L (3.6-5.0); TOTAL PROTEIN 5.8 GM/DL (6.4-8.2)
[~2021-07-23] VITALS: Ht 157.5 cm; Wt 70.3 kg
[~2021-07-23] MED LIST changes: +ACHD5005 PO; +ATEZOLIZUMAB 1,200 MG in NS (IVPB) CANCER CENTER 250 ML IV SCH; +CARBOPLATIN IV SCH; +D5W IV SCH; +DEXAMETHASONE SODIUM PHOSPHATE IV SCH; +ETOPOSIDE IV SCH; +FOSAPREPITANT (CANCER CENTER) 150 MG in NS (IVPB) CANCER CENTER ONLY 150 ML IV SCH; +NORMAL SALINE IV SCH; +NS IV 1000 ML (CANCER CTR) IV SCH; +ONDANSETRON IV SCH; +PEGFILGRASTIM 6 MG/0.6 ML ONPRO KIT SQ SCH; +[UNRECOGNIZED DRUG - OTHER] IV SCH
== END | disposition home or self-care (01) ==
LOC: ONC 06-29 09:49
PROVIDERS: ATTEND Internal Medicine
DX: Z51.11 Encounter for antineoplastic chemotherapy (principal); Z51.0 Encounter for antineoplastic radiation therapy; C34.90 Malignant neoplasm of unspecified part of unspecified bronchus or lung; C79.31 Secondary malignant neoplasm of brain; F20.9 Schizophrenia, unspecified
CPT/HCPCS: 80053; 84439; 84443; 85025; G0463; 36415; 36591; 77290; 77300; 77301; 77334; 77338; 77386; 96360; 96367; 96375; 96413; 96417; 99204; 99214; J2506

== ENCOUNTER → 2021-07-27 | Outpatient (CLI) | payer MEDICARE, MEDICAID ==
[~2021-07-27] MED LIST changes: -ATEZOLIZUMAB 1,200 MG in NS (IVPB) CANCER CENTER 250 ML IV SCH; -CARBOPLATIN IV SCH; -D5W IV SCH; -DEXAMETHASONE SODIUM PHOSPHATE IV SCH; -ETOPOSIDE IV SCH; -FOSAPREPITANT (CANCER CENTER) 150 MG in NS (IVPB) CANCER CENTER ONLY 150 ML IV SCH; -NORMAL SALINE IV SCH; -NS IV 1000 ML (CANCER CTR) IV SCH; -ONDANSETRON IV SCH; -PEGFILGRASTIM 6 MG/0.6 ML ONPRO KIT SQ SCH; -[UNRECOGNIZED DRUG - OTHER] IV SCH
--- NOTE | 2021-07-27 12:14 | Diagnostic Imaging Report ---
INDICATION: Small cell carcinoma of the lung, initial staging. Serum blood glucose level at the time of injection is 114 mg/dL. Patient was administered 12.1 mCi F-18 FDG intravenously in the right wrist and PET imaging was performed from the top of the skull to mid thighs. Noncontrast CT was also performed for attenuation correction and anatomic correlation. COMPARISON: No prior PET/CT studies available for comparison. Comparison is made with outside CT study from [facility] performed 06/05/2021. There is symmetric activity throughout the brain. Soft tissues of the neck are unremarkable. The mass in the prevascular space noted on outside CT does show some low level uptake with an SUV max approximately 3.0. No immediate other areas of mediastinal or hilar uptake are identified. No pulmonary parenchymal uptake is seen. There is physiologic activity throughout the gastrointestinal and genitourinary tracts of the abdomen and pelvis. There are scattered areas of osseous uptake, indeterminate. Correlation with bone scan would be useful. IMPRESSION: Borderline uptake within the mass in the prevascular space seen on CT chest exam. No other suspicious areas of hypermetabolic activity are identified. There is scattered osseous uptake, indeterminate with no definite CT correlate. Correlation with bone scan would be useful. Dictated by: Dictated on workstation # [id number]
== END ==
LOC: RAD 07-20 09:45
PROVIDERS: ATTEND Internal Medicine
DX: C34.90 Malignant neoplasm of unspecified part of unspecified bronchus or lung (principal)
CPT/HCPCS: 78815; A9552

== ENCOUNTER 2021-08-09 10:08 | Emergency (ER) | payer MEDICARE, MEDICAID ==
[2021-08-09 10:24] LABS: BASOPHILS # (AUTO) 0.1 10^3/uL (0.0-0.1); BASOPHILS % (AUTO) 1 % (0-10); EOSINOPHILS % (AUTO) 0 % (0-10); HEMATOCRIT 35 % (35-52); LYMPHOCYTES # (AUTO) 1.6 10^3/uL (1.0-4.0); LYMPHOCYTES % (AUTO) 9 % (12-44); MEAN CORPUSCULAR HEMOGLOBIN 30 pg (25-34); MEAN CORPUSCULAR HGB CONC 34 g/dL (32-36); MEAN CORPUSCULAR VOLUME 89 fL (80-99); MEAN PLATELET VOLUME 9.4 fL (9.0-12.2); MONOCYTES # (AUTO) 0.2 10^3/uL (0.0-1.0); MONOCYTES % (AUTO) 1 % (0-12); NEUTROPHILS # (AUTO) 12.6 10^3/uL (1.8-7.8); NEUTROPHILS % (AUTO) 70 % (42-75); PLATELET COUNT 298 10^3/uL (130-400); WHITE BLOOD COUNT 18.2 10^3/uL (4.3-11.0)
--- NOTE | 2021-08-09 10:30 | Diagnostic Imaging Report ---
EXAM: CHEST 1 VIEW AP/PA ONLY INDICATION: Shortness of air. COMPARISON: Chest radiograph 06/04/2021. FINDINGS: Normal heart size and central pulmonary vascularity. Scant atelectasis in the left lung base. The lungs are otherwise clear. No pleural effusion or pneumothorax. Right subclavian tunneled port CVC tip mid SVC. IMPRESSION: Scant atelectasis in the left lung base. The lungs are otherwise clear. Dictated by: Dictated on workstation # [id number]
[2021-08-09 10:44] LABS: BILIRUBIN,TOTAL 0.8 MG/DL (0.1-1.0); CALCIUM 9.3 MG/DL (8.5-10.1); CREATININE SERUM 0.82 MG/DL (0.60-1.30); POTASSIUM 4.1 MMOL/L (3.6-5.0); TOTAL PROTEIN 6.7 GM/DL (6.4-8.2)
[2021-08-09 10:46] VITALS: BP 153/98
--- NOTE | 2021-08-09 11:00 | Diagnostic Imaging Report ---
PROCEDURE: CT head without contrast. TECHNIQUE: Multiple contiguous axial images were obtained through the brain without the use of intravenous contrast. Auto Exposure Controls were utilized during the CT exam to meet ALARA standards for radiation dose reduction. INDICATION: 71-year-old female, altered mental status. CORRELATION STUDY: 06/04/2021 FINDINGS: Examination is compromised by motion artifact. The ventricles and sulci are age-appropriate. Scattered areas of decreased attenuation, likely reflective of chronic small vessel ischemic disease. Slightly more pronounced in the deep right frontal lobe white matter. More focal regional area of low-attenuation in the central right cerebellum is present. This is changed from prior with apparent interval occipital craniotomy. Likely resection of a previous mass. Definitive new area of decreased attenuation to suggest edema is not suggested. Apart from the occipital craniectomy, bony calvarium otherwise intact. There is moderate mucosal thickening and an air-fluid level of the sphenoid sinuses. Slight heterogeneous low attenuation of the skull base. IMPRESSION: 1. Negative for acute intracranial abnormality. However, the examination is compromised by significant patient motion artifact. 2. Interval occipital craniotomy with likely resection of a right cerebellar mass. Surgical cystic operative bed appearing unremarkable. Dictated by: Dictated on workstation # [id number]
[2021-08-09 11:08] LABS: LYMPHOCYTES % (MANUAL) 6 %; MONOCYTES % (MANUAL) 3 %; NEUTROPHILS % (MANUAL) 91 %
--- NOTE | 2021-08-09 11:08 | ED General ---
General Chief Complaint: Altered Mental Status Stated Complaint: AMS Nursing Triage Note: Patient has been brought to the ER by the family. Per the family the patient has been more confused the past several days. She has not been wanting to take her medications, she has not been wanting to eat very much. Patient denies feeling bad. She denies any pain. Source of Information: Patient Exam Limitations: No Limitations History of Present Illness Date Seen by Provider: Aug 09, 2021 Time Seen by Provider: 10:00 Initial Comments Patient is a 71-year-old female with history of cancer with metastatic disease to the brain. Patient is currently on chemotherapy and has been confused over the past several days. She is being declining to take her medications and does not wish to eat much. Denies feeling bad. She denies headache, blurred vision, cough, fever chills, nausea vomiting or sweats. No chest pain shortness of breath, abdominal pain. No urinary frequency urgency or dysuria. No other acute symptoms or complaints. Timing/Duration: 1-3 Hours Severity: Mild Associated Systoms: Other Allergies and Home Medications Allergies Coded Allergies: latex (Verified Allergy, Mild, rash, 12/10/14) ampicillin (Unverified Allergy, Unknown, 02/07/14) cetirizine HCl (Unverified Allergy, Unknown, 02/07/14) dimenhydrinate (Unverified Allergy, Unknown, 02/07/14) metformin HCl (Unverified Adverse Reaction, Unknown, 02/07/14) CAN TAKE METFORMIN Patient Home Medication List Home Medication List Reviewed: Yes Aspirin (Aspirin EC) 81 Mg Tablet.dr, 81 MG PO HS, (Reported) Entered as Reported by: HALIMA ENAMORADO on 06/16/21 1454 Dexamethasone (Dexamethasone) 4 Mg Tablet, 4 MG PO BID WITH MEALS Prescribed by: MADHURI MCCRARY on 06/24/21 0538 Duloxetine HCl (Duloxetine HCl) 60 Mg Capsule.dr, 60 MG PO DAILY, (Reported) Entered as Reported by: HALIMA ENAMORADO on 06/16/21 1454 Fenofibrate Nanocrystallized (Fenofibrate) 145 Mg Tablet, 145 MG PO 1800, (Reported) Entered as Reported by: HALIMA ENAMORADO on 06/16/21 1454 Flaxseed Oil (Flaxseed Oil) 1,000 Mg Capsule, 1,000 MG PO BID, (Reported) Entered as Reported by: HALIMA ENAMORADO on 06/16/21 145 Hydrocodone Bit/Acetaminophen (HYDROcodone/APAP 5 MG/325 MG TAB) 1 Tab Tab, 1 TAB PO Q8H PRN for PAIN-MODERATE (5-7) Prescribed by: JOHN JONES on 07/08/21 1055 Insulin Aspart (Novolog Flexpen) 300 Units/3 Ml Solution, 15 UNITS SQ BID WITH MEALS Prescribed by: MADHURI MCCRARY on 06/24/21 05 Insulin Aspart (Novolog Flexpen) 300 Units/3 Ml Solution, 15 UNITS SQ 1200 W/MEAL Prescribed by: MADHUIR MCCRARY on 06/24/21537 Insulin Degludec (Tresiba Flextouch U-100) 100 Unit/1 Ml Insuln.pen, 25 UNIT SQ BID Prescribed by: MADHURI MCCRARY on 06/24/21537 Multivitamin (Multivitamin) 1 Each Tablet, 1 EACH PO DAILY, (Reported) Entered as Reported by: HALIMA ENAMORADO on 06/16/21 145 Oxybutynin Chloride (Oxybutynin Chloride) 5 Mg Tablet, 10 MG PO DAILY, (Reported) Entered as Reported by: HALIMA ENAMORADO on 06/16/21 145 Oxybutynin Chloride (Oxybutynin Chloride) 5 Mg Tablet, 5 MG PO HS, (Reported) Entered as Reported by: APRIL NARANJO on 06/22/21 145 Pantoprazole Sodium (Pantoprazole Sodium) 40 Mg Tablet.dr, 40 MG PO 1800, (Reported) Entered as Reported by: HALIMA ENAMORADO on 06/16/21 145 Pravastatin Sodium (Pravastatin Sodium) 40 Mg Tablet, 20 MG PO HS, (Reported) Entered as Reported by: APRIL NARANJO on 06/22/21 145 Semaglutide (Ozempic) 1 Mg/0.75 Ml Pen.injctr, 1 MG SQ WED, (Reported) Entered as Reported by: HALIMA ENAMORADO on 06/16/21 145 Trazodone HCl (Trazodone HCl) 100 Mg Tablet, 100 MG PO HS, (Reported) Entered as Reported by: APRIL NARANJO on 06/22/21 145 Review of Systems Review of Systems Constitutional: see HPI EENTM: see HPI Respiratory: see HPI Cardiovascular: see HPI Gastrointestinal: see HPI Genitourinary: see HPI Musculoskeletal: see HPI Skin: see HPI Psychiatric/Neurological: See HPI Hematologic/Lymphatic: See HPI Immunological/Allergic: see HPI All Other Systems Reviewed Negative Unless Noted: Yes Past Thjwoui-Ymhope-Kyrgdc Hx Patient Social History Tobacco Use?: Yes Use of E-Cig and/or Vaping dev: No Substance use?: No Alcohol Use?: No Immunizations Up To Date First/Initial COVID19 Vaccinat: 2020 Second COVID19 Vaccination Gurdeep: 2020 Third COVID19 Vaccination Date: FEB 2021 Seasonal Allergies Seasonal Allergies: Yes Past Medical History Surgery/Hospitalization HX: Chronic back pain; diabetes; bladder surgery; tonsilectomy; adnoidectomy; partial hysterectomy Surgeries: Yes (PARTIAL HYST, BLADDER SLING, GALLBLADDER) Adenoidectomy, Tonsillectomy Respiratory: Yes (LUNG CANCER PRIMARY) Asthma, COPD, Emphysema Currently Using CPAP: No Currently Using BIPAP: No Cardiac: Yes High Cholesterol, Hypertension Neurological: Yes Brain Tumor Genitourinary: Yes Bladder Infection Gastrointestinal: Yes Gastroesophageal Reflux, Diverticulosis Musculoskeletal: Yes Arthritis, Chronic Back Pain Endocrine: Yes Diabetes, Insulin dep HEENT: Yes (GLASSES) Cancer: Yes Brain, Lung Psychosocial: Yes (CHEMICAL IMBALANCE) Anxiety, Personality Disorder, Schizophrenia, Depression Integumentary: Yes Eczema Blood Disorders: No Physical Exam Vital Signs Vital Signs - First Documented 08/09/21 10:46 Temp 35.8 Pulse 116 Resp 16 B/P (MAP) 153/98 (116) Pulse Ox 98 O2 Delivery Room Air Capillary Refill : Height, Weight, BMI Height: 5'3.50" Weight: 179lbs. oz. [id number]; 28.52 BMI Method: General Appearance: No Apparent Distress, WD/WN Eyes: Bilateral Eye Normal Inspection, Bilateral Eye PERRL, Bilateral Eye EOMI HEENT: Normal ENT Inspection, Pharynx Normal Neck: Full Range of Motion, Non Tender, Supple Respiratory: Chest Non Tender, Decreased Breath Sounds, Rhonci Gastrointestinal: Non Tender, Soft Back: No CVA Tenderness Neurologic/Psychiatric: Alert, Oriented x3, Normal Mood/Affect, butter grader II-XII Norm as Tested Focused Exam Sepsis Stage: Ruled Out Lactate Level 08/09/21 11:17: Lactic Acid Level 1.73 Lactic Acid Level Laboratory Tests Test 08/09/21 11:17 Lactic Acid Level 1.73 MMOL/L (0.50-2.00) Progress/Results/Core Measures Suspected Sepsis SIRS Temperature: Pulse: 116 Respiratory Rate: 16 Laboratory Tests 08/09/21 10:22: White Blood Count 18.2H Blood Pressure 153 /98 Mean: 116 08/09/21 11:17: Lactic Acid Level 1.73 Laboratory Tests 08/09/21 10:22: Creatinine 0.82, Platelet Count 298, Total Bilirubin 0.8 Results/Orders Lab Results Laboratory Tests Test 08/09/21 10:22 08/09/21 11:17 08/09/21 12:52 Range/Units White Blood Count 18.2 H 4.3-11.0 10^3/uL Red Blood Count 3.96 3.80-5.11 10^6/uL Hemoglobin 12.0 11.5-16.0 g/dL Hematocrit 35 35-52 % Mean Corpuscular Volume 89 80-99 fL Mean Corpuscular Hemoglobin 30 25-34 pg Mean Corpuscular Hemoglobin Concent 34 32-36 g/dL Red Cell Distribution Width 15.1 H 10.0-14.5 % Platelet Count 298 130-400 10^3/uL Mean Platelet Volume 9.4 9.0-12.2 fL Immature Granulocyte % (Auto) 20 % Neutrophils (%) (Auto) 70 42-75 % Lymphocytes (%) (Auto) 9 L 12-44 % Monocytes (%) (Auto) 1 0-12 % Eosinophils (%) (Auto) 0 0-10 % Basophils (%) (Auto) 1 0-10 % Neutrophils # (Auto) 12.6 H 1.8-7.8 10^3/uL Lymphocytes # (Auto) 1.6 1.0-4.0 10^3/uL Monocytes # (Auto) 0.2 0.0-1.0 10^3/uL Eosinophils # (Auto) 0.0 0.0-0.3 10^3/uL Basophils # (Auto) 0.1 0.0-0.1 10^3/uL Immature Granulocyte # (Auto) 3.6 H 0.0-0.1 10^3/uL Neutrophils % (Manual) 91 % Lymphocytes % (Manual) 6 % Monocytes % (Manual) 3 % Sodium Level 141 135-145 MMOL/L Potassium Level 4.1 3.6-5.0 MMOL/L Chloride Level 101 98-107 MMOL/L Carbon Dioxide Level 24 21-32 MMOL/L Anion Gap 16 H 5-14 MMOL/L Blood Urea Nitrogen 35 H 7-18 MG/DL Creatinine 0.82 0.60-1.30 MG/DL Estimat Glomerular Filtration Rate 77 BUN/Creatinine Ratio 43 Glucose Level 162 H 70-105 MG/DL Calcium Level 9.3 8.5-10.1 MG/DL Corrected Calcium 9.3 8.5-10.1 MG/DL Total Bilirubin 0.8 0.1-1.0 MG/DL Aspartate Amino Transf (AST/SGOT) 22 5-34 U/L Alanine Aminotransferase (ALT/SGPT) 26 0-55 U/L Alkaline Phosphatase 117 40-136 U/L Total Protein 6.7 6.4-8.2 GM/DL Albumin 4.0 3.2-4.5 GM/DL Thyroid Stimulating Hormone (TSH) 0.77 0.35-4.94 UIU/ML Lactic Acid Level 1.73 0.50-2.00 MMOL/L Urine Color YELLOW Urine Clarity CLOUDY Urine pH 6.0 5-9 Urine Specific [place] >=1.030 1.016-1.022 Urine Protein 1+ H NEGATIVE Urine Glucose (UA) NEGATIVE NEGATIVE Urine Ketones NEGATIVE NEGATIVE Urine Nitrite POSITIVE H NEGATIVE Urine Bilirubin NEGATIVE NEGATIVE Urine Urobilinogen 0.2 < = 1.0 MG/DL Urine Leukocyte Esterase 2+ H NEGATIVE Urine RBC (Auto) TRACE-I H NEGATIVE Urine RBC NONE /HPF Urine WBC >100 H /HPF Urine Crystals NONE /LPF Urine Bacteria LARGE H /HPF Urine Casts NONE /LPF Urine Mucus NEGATIVE /LPF Urine Culture Indicated YES My Orders Orders - VASU TURNER DO Cbc With Automated Diff (08/09/21 10:14) Comprehensive Metabolic Panel (08/09/21 10:14) Chest 1 View Ap/Pa Only (08/09/21 10:14) Ua Culture If Indicated (08/09/21 10:14) Ct Head Wo (08/09/21 10:20) Thyroid Stimulating Hormone (08/09/21 10:22) Manual Differential (08/09/21 10:22) Lactic Acid Analyzer (08/09/21 11:05) Urine Culture (08/09/21 12:52) Ceftriaxone 1 Gm Pre-Mix (Rocephin 1 Gm (08/09/21 13:15) Vital Signs/I&O 08/09/21 10:46 Temp 35.8 Pulse 116 Resp 16 B/P (MAP) 153/98 (116) Pulse Ox 98 O2 Delivery Room Air Capillary Refill : Blood Pressure Mean: 116 Departure Communication (Admissions) Chest x-ray: No acute cardiopulmonary disease per radiology report CT head: No acute intracranial disease per radiology report Impression Primary Impression: Altered mental status Additional Impression: Urinary tract infection Disposition: HOME, SELF-CARE Condition: Stable Departure-Patient Inst. Decision time for Depature: 13:11 Referrals: NO,LOCAL PHYSICIAN (PCP) Primary Care Physician KAMILAH MEZA (Family) Primary Care Physician Patient Instructions: Urinary Tract Infection, Adult (DC) Add. Discharge Instructions: You were evaluated in the emergency department for the emergency department for confusion. CT imaging study and lab were performed and are consistent with lower urinary tract infection. Please increase fluids, take antibiotics as directed continue home medications follow-up with your PCP and/or oncologist. Return to the ED if new or worsening symptoms. All discharge instructions reviewed with patient and/or family. Voiced understanding. Scripts Cephalexin (Cephalexin) 500 Mg Tablet 500 MG PO TID, #21 TAB Prov: VASU TURNER DO 08/09/21 VASU TURNER DO Aug 09, 2021 11:08
[2021-08-09 12:56] LABS: BILIRUBIN,URINE NEGATIVE (NEGATIVE); COLOR,URINE YELLOW; GLUCOSE, URINE (UA) NEGATIVE (NEGATIVE); KETONES,URINE NEGATIVE (NEGATIVE); LEUKOCYTE ESTERASE ,URINE 2+ (NEGATIVE); NITRITE,URINE POSITIVE (NEGATIVE); PROTEIN,URINE 1+ (NEGATIVE)
[2021-08-09 13:02] LABS: BACTERIA,URINE LARGE /HPF; CLARITY,URINE CLOUDY; WBC,URINE >100 /HPF
[2021-08-09] MEDS ORDERED: CEPH500T PO (13:12)
[2021-08-09] MEDS ORDERED: cefTRIAXone 1 GM PRE-MIX 50 ML IV ONE (13:15)
[2021-08-09] MEDS ORDERED: cefTRIAXone 1,000 MG VIAL IM ONE (13:30)
[2021-08-09] MEDS ORDERED: LIDOCAINE 1% INJ 20 ML VIAL INJ ONE (13:30)
== END 2021-08-09 13:45 | disposition home or self-care (01) ==
LOC: EDUNIT# 10:08 → ER FS 10:10
DX: C79.31 Secondary malignant neoplasm of brain (principal); R41.82 Altered mental status, unspecified; N39.0 Urinary tract infection, site not specified; E11.9 Type 2 diabetes mellitus without complications; Z91.040 Latex allergy status; Z79.4 Long term (current) use of insulin
CPT/HCPCS: 36415; 70450; 71045; 80053; 81000; 83605; 84443; 85007; 85027; 87077; 87088; 87186

== ENCOUNTER 2021-08-10 10:57 | Emergency (ER) | payer MEDICARE, MEDICAID ==
[~2021-08-10] VITALS: Ht 160 cm; Wt 65.9 kg
[~2021-08-10 10:57] MED LIST changes: +CEPH500T PO
--- NOTE | 2021-08-10 11:06 | ED General ---
General Stated Complaint: AMS History of Present Illness Date Seen by Provider: Aug 10, 2021 Time Seen by Provider: 11:00 Initial Comments 71-year-old female sent out to be evaluated by family. Patient arrived here because she is having "anger issues" patient has known lung cancer that has metastasized to the brain. Patient was seen here yesterday for a urinary tract infection and is feeling a lot better. Patient reports that she is here because she "having attitude issues" patient lives with her ex- and states that is the problem. Patient has no physical complaints. Allergies and Home Medications Allergies Coded Allergies: latex (Verified Allergy, Mild, rash, 12/10/14) ampicillin (Unverified Allergy, Unknown, 02/07/14) cetirizine HCl (Unverified Allergy, Unknown, 02/07/14) dimenhydrinate (Unverified Allergy, Unknown, 02/07/14) metformin HCl (Unverified Adverse Reaction, Unknown, 02/07/14) CAN TAKE METFORMIN Patient Home Medication List Home Medication List Reviewed: Yes Aspirin (Aspirin EC) 81 Mg Tablet.dr, 81 MG PO HS, (Reported) Entered as Reported by: HALIMA ENAMORADO on 06/16/21 1454 Cephalexin (Cephalexin) 500 Mg Tablet, 500 MG PO TID Prescribed by: VASU TURNER on 08/09/21 1312 Dexamethasone (Dexamethasone) 4 Mg Tablet, 4 MG PO BID WITH MEALS Prescribed by: MADHURI MCCRARY on 06/24/21 0538 Duloxetine HCl (Duloxetine HCl) 60 Mg Capsule.dr, 60 MG PO DAILY, (Reported) Entered as Reported by: HALIMA ENAMORADO on 06/16/21 1454 Fenofibrate Nanocrystallized (Fenofibrate) 145 Mg Tablet, 145 MG PO 1800, (Rep orted) Entered as Reported by: HALIMA ENAMORADO on 06/16/21 1454 Flaxseed Oil (Flaxseed Oil) 1,000 Mg Capsule, 1,000 MG PO BID, (Reported) Entered as Reported by: HALIMA ENAMORADO on 06/16/21 1454 Hydrocodone Bit/Acetaminophen (HYDROcodone/APAP 5 MG/325 MG TAB) 1 Tab Tab, 1 TAB PO Q8H PRN for PAIN-MODERATE (5-7) Prescribed by: JOHN JONES on 07/08/21 1055 Insulin Aspart (Novolog Flexpen) 300 Units/3 Ml Solution, 15 UNITS SQ BID WITH MEALS Prescribed by: MADHURI MCCRARY on 06/24/21537 Insulin Aspart (Novolog Flexpen) 300 Units/3 Ml Solution, 15 UNITS SQ 1200 W/MEAL Prescribed by: MADHURI MCCRARY on 06/24/21537 Insulin Degludec (Tresiba Flextouch U-100) 100 Unit/1 Ml Insuln.pen, 25 UNIT SQ BID Prescribed by: MADHURI MCCRARY on 06/24/21537 Multivitamin (Multivitamin) 1 Each Tablet, 1 EACH PO DAILY, (Reported) Entered as Reported by: HALIMA ENAMORADO on 06/16/21 145 Oxybutynin Chloride (Oxybutynin Chloride) 5 Mg Tablet, 10 MG PO DAILY, (Reported) Entered as Reported by: HALIMA ENAMORADO on 06/16/21 145 Oxybutynin Chloride (Oxybutynin Chloride) 5 Mg Tablet, 5 MG PO HS, (Reported) Entered as Reported by: APRIL NARANJO on 06/22/21 145 Pantoprazole Sodium (Pantoprazole Sodium) 40 Mg Tablet.dr, 40 MG PO 1800, (Reported) Entered as Reported by: HALIMA ENAMORADO on 06/16/21 145 Pravastatin Sodium (Pravastatin Sodium) 40 Mg Tablet, 20 MG PO HS, (Reported) Entered as Reported by: APRIL NARANJO on 06/22/21 145 Semaglutide (Ozempic) 1 Mg/0.75 Ml Pen.injctr, 1 MG SQ WED, (Reported) Entered as Reported by: HALIMA ENAMORADO on 06/16/21 145 Trazodone HCl (Trazodone HCl) 100 Mg Tablet, 100 MG PO HS, (Reported) Entered as Reported by: APRIL NARANJO on 06/22/21 145 Review of Systems Review of Systems Constitutional: No chills, No fever EENTM: no symptoms reported Respiratory: no symptoms reported Cardiovascular: no symptoms reported Gastrointestinal: no symptoms reported Genitourinary: see HPI Musculoskeletal: no symptoms reported Skin: no symptoms reported Psychiatric/Neurological: See HPI Past Wmyjliv-Hqdfkb-Qslipk Hx Immunizations Up To Date First/Initial COVID19 Vaccinat: 2020 Second COVID19 Vaccination Gurdeep: 2020 Third COVID19 Vaccination Date: FEB 2021 Seasonal Allergies Seasonal Allergies: Yes Past Medical History Surgery/Hospitalization HX: Chronic back pain; diabetes; bladder surgery; tonsilectomy; adnoidectomy; partial hysterectomy Surgeries: Yes (PARTIAL HYST, BLADDER SLING, GALLBLADDER) Adenoidectomy, Tonsillectomy Respiratory: Yes (LUNG CANCER PRIMARY) Asthma, COPD, Emphysema Currently Using CPAP: No Currently Using BIPAP: No Cardiac: Yes High Cholesterol, Hypertension Neurological: Yes Brain Tumor Genitourinary: Yes Bladder Infection Gastrointestinal: Yes Gastroesophageal Reflux, Diverticulosis Musculoskeletal: Yes Arthritis, Chronic Back Pain Endocrine: Yes Diabetes, Insulin dep HEENT: Yes (GLASSES) Cancer: Yes Brain, Lung Psychosocial: Yes (CHEMICAL IMBALANCE) Anxiety, Personality Disorder, Schizophrenia, Depression Integumentary: Yes Eczema Blood Disorders: No Physical Exam Vital Signs Vital Signs - First Documented 08/10/21 10:57 Temp 36.1 Pulse 109 Resp 16 B/P (MAP) 132/79 (96) O2 Delivery Room Air Capillary Refill : Height, Weight, BMI Height: 5'3.50" Weight: 179lbs. oz. 81.254858ir; 28.52 BMI Method: General Appearance: No Apparent Distress, WD/WN Eyes: Bilateral Eye Normal Inspection, Bilateral Eye PERRL, Bilateral Eye EOMI Neck: Full Range of Motion, Normal Inspection Respiratory: Lungs Clear, Normal Breath Sounds Cardiovascular: Regular Rate, Rhythm, No Edema Gastrointestinal: Non Tender, Soft Extremity: Normal Capillary Refill Neurologic/Psychiatric: Alert, Oriented x3, No Motor/Sensory Deficits, Other (Patient is alert and orientated but does not have complete cognition of her situation but is not a threat to herself, others and does not appear to be significantly impaired) Skin: Normal Color, Warm/Dry Progress/Results/Core Measures Suspected Sepsis SIRS Temperature: Pulse: Respiratory Rate: Laboratory Tests 08/10/21 11:18: White Blood Count 6.9 Blood Pressure / Mean: Laboratory Tests 08/10/21 11:18: Creatinine 0.98, Platelet Count 274, Total Bilirubin 0.8 Results/Orders Lab Results Laboratory Tests Test 08/10/21 11:18 Range/Units White Blood Count 6.9 4.3-11.0 10^3/uL Red Blood Count 3.81 3.80-5.11 10^6/uL Hemoglobin 11.3 L 11.5-16.0 g/dL Hematocrit 33 L 35-52 % Mean Corpuscular Volume 87 80-99 fL Mean Corpuscular Hemoglobin 30 25-34 pg Mean Corpuscular Hemoglobin Concent 34 32-36 g/dL Red Cell Distribution Width 14.9 H 10.0-14.5 % Platelet Count 274 130-400 10^3/uL Mean Platelet Volume 9.8 9.0-12.2 fL Immature Granulocyte % (Auto) 7 % Neutrophils (%) (Auto) 76 H 42-75 % Lymphocytes (%) (Auto) 15 12-44 % Monocytes (%) (Auto) 2 0-12 % Eosinophils (%) (Auto) 0 0-10 % Basophils (%) (Auto) 1 0-10 % Neutrophils # (Auto) 5.2 1.8-7.8 10^3/uL Lymphocytes # (Auto) 1.0 1.0-4.0 10^3/uL Monocytes # (Auto) 0.1 0.0-1.0 10^3/uL Eosinophils # (Auto) 0.0 0.0-0.3 10^3/uL Basophils # (Auto) 0.1 0.0-0.1 10^3/uL Immature Granulocyte # (Auto) 0.5 H 0.0-0.1 10^3/uL Neutrophils % (Manual) 68 % Lymphocytes % (Manual) 8 % Monocytes % (Manual) 2 % Eosinophils % (Manual) 1 % Basophils % (Manual) 0 % Band Neutrophils 17 % Atypical Lymphocytes 4 % Platelet Estimate NORMAL Blood Morphology Comment NORMAL Sodium Level 138 135-145 MMOL/L Potassium Level 4.1 3.6-5.0 MMOL/L Chloride Level 100 98-107 MMOL/L Carbon Dioxide Level 20 L 21-32 MMOL/L Anion Gap 18 H 5-14 MMOL/L Blood Urea Nitrogen 44 H 7-18 MG/DL Creatinine 0.98 0.60-1.30 MG/DL Estimat Glomerular Filtration Rate 62 BUN/Creatinine Ratio 45 Glucose Level 302 H 70-105 MG/DL Calcium Level 9.4 8.5-10.1 MG/DL Corrected Calcium 9.3 8.5-10.1 MG/DL Total Bilirubin 0.8 0.1-1.0 MG/DL Aspartate Amino Transf (AST/SGOT) 16 5-34 U/L Alanine Aminotransferase (ALT/SGPT) 26 0-55 U/L Alkaline Phosphatase 108 40-136 U/L Total Protein 6.8 6.4-8.2 GM/DL Albumin 4.1 3.2-4.5 GM/DL My Orders Orders - KRISTINA LIVINGSTON DO Cbc With Automated Diff (08/10/21 11:06) Comprehensive Metabolic Panel (08/10/21 11:06) Manual Differential (08/10/21 11:18) Vital Signs/I&O 08/10/21 10:57 Temp 36.1 Pulse 109 Resp 16 B/P (MAP) 132/79 (96) O2 Delivery Room Air Capillary Refill : Progress Note : Progress Note NoPatient was stable throughout her stay with pleasant cooperative. Patient acted out her anger issues while here. She does have some mild episodes of confusion which are her baseline. Patient's labs show improvement from yesterday. Patient stable and discharged back home Departure Impression Primary Impression: General symptom Disposition: 01 HOME, SELF-CARE Condition: Stable Departure-Patient Inst. Referrals: NO,LOCAL PHYSICIAN (PCP) Primary Care Physician KAMILAH MEZA (Family) Primary Care Physician Patient Instructions: Urinary Tract Infection, Adult (DC) Add. Discharge Instructions: Follow-up with your primary care provider for further outpatient management and care. KRISTINA LIVINGSTON DO Aug 10, 2021 11:06
[2021-08-10 11:28] LABS: BASOPHILS # (AUTO) 0.1 10^3/uL (0.0-0.1); BASOPHILS % (AUTO) 1 % (0-10); EOSINOPHILS % (AUTO) 0 % (0-10); HEMATOCRIT 33 % (35-52); HEMOGLOBIN 11.3 g/dL (11.5-16.0); LYMPHOCYTES % (AUTO) 15 % (12-44); MEAN CORPUSCULAR HEMOGLOBIN 30 pg (25-34); MEAN CORPUSCULAR HGB CONC 34 g/dL (32-36); MEAN CORPUSCULAR VOLUME 87 fL (80-99); MEAN PLATELET VOLUME 9.8 fL (9.0-12.2); MONOCYTES # (AUTO) 0.1 10^3/uL (0.0-1.0); MONOCYTES % (AUTO) 2 % (0-12); NEUTROPHILS # (AUTO) 5.2 10^3/uL (1.8-7.8); NEUTROPHILS % (AUTO) 76 % (42-75); PLATELET COUNT 274 10^3/uL (130-400); WHITE BLOOD COUNT 6.9 10^3/uL (4.3-11.0)
[2021-08-10 11:55] LABS: ATYPICAL LYMPHOCYTES 4 %; BAND NEUTROPHILS 17 %; BASOPHILS % (MANUAL) 0 %; EOSINOPHILS % (MANUAL) 1 %; LYMPHOCYTES % (MANUAL) 8 %; MONOCYTES % (MANUAL) 2 %; NEUTROPHILS % (MANUAL) 68 %; PLATELET ESTIMATE NORMAL; RBC MORPH NORMAL
[2021-08-10 11:56] LABS: BILIRUBIN,TOTAL 0.8 MG/DL (0.1-1.0); CALCIUM 9.4 MG/DL (8.5-10.1); CREATININE SERUM 0.98 MG/DL (0.60-1.30); POTASSIUM 4.1 MMOL/L (3.6-5.0)
[2021-08-10 11:57] LABS: ALBUMIN 4.1 GM/DL (3.2-4.5); TOTAL PROTEIN 6.8 GM/DL (6.4-8.2)
[2021-08-10 12:18] VITALS: BP 106/87
[2021-08-11] MEDS ORDERED: INSU100I14 SQ (16:15)
[2021-08-11] MEDS ORDERED: INSU200I4 SC (16:15)
[2021-08-11] MEDS ORDERED: DEXA4TAB PO (16:15)
[2021-08-11] MEDS ORDERED: RT-ALBUINH INH (16:15)
== END 2021-08-10 12:30 | disposition home or self-care (01) ==
LOC: EDUNIT# 10:57 → ER FS 10:59
DX: C79.31 Secondary malignant neoplasm of brain (principal); R45.4 Irritability and anger; E11.9 Type 2 diabetes mellitus without complications; Z91.040 Latex allergy status; Z79.4 Long term (current) use of insulin
CPT/HCPCS: 36415; 80053; 85007; 85027

== ENCOUNTER 2021-08-10 16:49 | Inpatient (IN) | payer MEDICARE, MEDICAID ==
[2021-08-10] MEDS ORDERED: NS IV 1000 ML 1,000 ML IV STA (17:14)
[2021-08-10] MEDS ORDERED: cefTRIAXone 1 GM PRE-MIX 50 ML IV ONE (17:15)
--- NOTE | 2021-08-10 17:19 | ED General ---
General Chief Complaint: General Problems/Pain Stated Complaint: HX CANCER/DX UTI/CONFUSION Source of Information: Patient, Caregiver Exam Limitations: No Limitations History of Present Illness Date Seen by Provider: Aug 10, 2021 Time Seen by Provider: 16:52 Initial Comments 71-year-old female with past medical history of hypertension, type II diabetes, COPD, emphysema, hyperlipidemia, Schizophrenia, fatty liver, small cell carcinoma of the lungs, metastatic cerebellar tumor, GERD, diverticulosis, anxiety coming in with her ex- who is her current caregiver that she lives with due to behavioral issues. This is her third ER visit in roughly 24 hours. Brief summary, she had a negative CT head without acute abnormalities, white blood cell count elevated yesterday but improved this morning, urinalysis consistent with infection. Ceftriaxone was given and a prescription of Keflex was also given. The patient is really not wanting to take medications. She is not really wanting to eat much. She is having general weakness and frequent falls that are minor. She is not hitting her head, has not passed out, does not take any blood thinners. The caregiver is frustrated with the patient navid shook refusing care at times. The patient is adamant that she does not want to be in a fpc or anything more aggressive. She denies any chest pain, shortness of breath, abdominal pain, nausea, vomiting, diarrhea, focal weakness or numbness, vision changes, or any other concerns Allergies and Home Medications Allergies Coded Allergies: latex (Verified Allergy, Mild, rash, 12/10/14) ampicillin (Unverified Allergy, Unknown, 02/07/14) cetirizine HCl (Unverified Allergy, Unknown, 02/07/14) dimenhydrinate (Unverified Allergy, Unknown, 02/07/14) metformin HCl (Unverified Adverse Reaction, Unknown, 02/07/14) CAN TAKE METFORMIN Patient Home Medication List Home Medication List Reviewed: Yes Aspirin (Aspirin EC) 81 Mg Tablet.dr, 81 MG PO HS, (Reported) Entered as Reported by: HALIMA ENAMORADO on 06/16/21 3024 Cephalexin (Cephalexin) 500 Mg Tablet, 500 MG PO TID Prescribed by: VASU TURNER on 08/09/21 1312 Dexamethasone (Dexamethasone) 4 Mg Tablet, 4 MG PO BID WITH MEALS Prescribed by: MADHURI MCCRARY on 06/24/21 05 Duloxetine HCl (Duloxetine HCl) 60 Mg Capsule.dr, 60 MG PO DAILY, (Reported) Entered as Reported by: HALIMA ENAMORADO on 06/16/21 145 Fenofibrate Nanocrystallized (Fenofibrate) 145 Mg Tablet, 145 MG PO 1800, (Reported) Entered as Reported by: HALIMA ENAMORADO on 06/16/21 145 Flaxseed Oil (Flaxseed Oil) 1,000 Mg Capsule, 1,000 MG PO BID, (Reported) Entered as Reported by: HALIMA ENAMORADO on 06/16/21 145 Hydrocodone Bit/Acetaminophen (HYDROcodone/APAP 5 MG/325 MG TAB) 1 Tab Tab, 1 TAB PO Q8H PRN for PAIN-MODERATE (5-7) Prescribed by: JOHN JONES on 07/08/21 1055 Insulin Aspart (Novolog Flexpen) 300 Units/3 Ml Solution, 15 UNITS SQ BID WITH MEALS Prescribed by: MADHURI MCCRARY on 06/24/21537 Insulin Aspart (Novolog Flexpen) 300 Units/3 Ml Solution, 15 UNITS SQ 1200 W/MEAL Prescribed by: MADHURI MCCRARY on 06/24/21537 Insulin Degludec (Tresiba Flextouch U-100) 100 Unit/1 Ml Insuln.pen, 25 UNIT SQ BID Prescribed by: MADHURI MCCRARY on 06/24/21537 Multivitamin (Multivitamin) 1 Each Tablet, 1 EACH PO DAILY, (Reported) Entered as Reported by: HALIMA ENAMORADO on 06/16/211453 Oxybutynin Chloride (Oxybutynin Chloride) 5 Mg Tablet, 10 MG PO DAILY, (Reported) Entered as Reported by: HALIMA ENAMORADO on 06/16/21 145 Oxybutynin Chloride (Oxybutynin Chloride) 5 Mg Tablet, 5 MG PO HS, (Reported) Entered as Reported by: APRIL NARANJO on 06/22/21 145 Pantoprazole Sodium (Pantoprazole Sodium) 40 Mg Tablet.dr, 40 MG PO 1800, (Reported) Entered as Reported by: HALIMA ENAMORADO on 06/16/21 145 Pravastatin Sodium (Pravastatin Sodium) 40 Mg Tablet, 20 MG PO HS, (Reported) Entered as Reported by: APRIL NARANJO on 06/22/21 1459 Semaglutide (Ozempic) 1 Mg/0.75 Ml Pen.injctr, 1 MG SQ WED, (Reported) Entered as Reported by: HALIMA ENAMORADO on 06/16/21 1454 Trazodone HCl (Trazodone HCl) 100 Mg Tablet, 100 MG PO HS, (Reported) Entered as Reported by: APRLI NARANJO on 06/22/21 1459 Review of Systems Review of Systems Constitutional: No chills, No fever EENTM: No blurred vision Respiratory: no symptoms reported Cardiovascular: no symptoms reported Gastrointestinal: no symptoms reported Genitourinary: no symptoms reported Musculoskeletal: no symptoms reported Skin: no symptoms reported Psychiatric/Neurological: Weakness (General weakness) Hematologic/Lymphatic: No Symptoms Reported Immunological/Allergic: no symptoms reported All Other Systems Reviewed Negative Unless Noted: Yes Past Yozypzf-Miqnwx-Zqzdgj Hx Patient Social History Tobacco Use?: No Substance use?: No Immunizations Up To Date First/Initial COVID19 Vaccinat: 2020 Second COVID19 Vaccination Gurdeep: 2020 Third COVID19 Vaccination Date: FEB 2021 Seasonal Allergies Seasonal Allergies: Yes Past Medical History Surgery/Hospitalization HX: has brain tumors and cx history with active treatment Surgeries: Yes (PARTIAL HYST, BLADDER SLING, GALLBLADDER) Adenoidectomy, Tonsillectomy Respiratory: Yes (LUNG CANCER PRIMARY) Asthma, COPD, Emphysema Currently Using CPAP: No Currently Using BIPAP: No Cardiac: Yes High Cholesterol, Hypertension Neurological: Yes Brain Tumor Genitourinary: Yes Bladder Infection Gastrointestinal: Yes Gastroesophageal Reflux, Diverticulosis Musculoskeletal: Yes Arthritis, Chronic Back Pain Endocrine: Yes Diabetes, Insulin dep HEENT: Yes (GLASSES) Cancer: Yes Brain, Lung Psychosocial: Yes (CHEMICAL IMBALANCE) Anxiety, Personality Disorder, Schizophrenia, Depression Integumentary: Yes Eczema Blood Disorders: No Physical Exam Vital Signs Vital Signs - First Documented 08/10/21 17:09 Temp 36.3 Pulse 100 Resp 20 Pulse Ox 95 O2 Delivery Room Air Capillary Refill : Height, Weight, BMI Height: 5'3.50" Weight: 179lbs. oz. 81.666053uf; 25.00 BMI Method: General Appearance: No Apparent Distress, WD/WN Eyes: Bilateral Eye Normal Inspection, Bilateral Eye PERRL, Bilateral Eye EOMI HEENT: PERRL/EOMI, Normal ENT Inspection, Pharynx Normal Neck: Full Range of Motion, Normal Inspection, Non Tender, Supple Respiratory: Chest Non Tender, Lungs Clear, Normal Breath Sounds, No Accessory Muscle Use, No Respiratory Distress Cardiovascular: Regular Rate, Rhythm, No Edema, Normal Peripheral Pulses Gastrointestinal: Normal Bowel Sounds, Non Tender, Soft; No Distended, No Guarding Back: Normal Inspection, No CVA Tenderness, No Vertebral Tenderness Extremity: Normal Capillary Refill, Normal Inspection, Normal Range of Motion, Non Tender, No Calf Tenderness, No Pedal Edema Neurologic/Psychiatric: Alert, Oriented x3, No Motor/Sensory Deficits, Normal Mood/Affect, pediatric neuropsychologist II-XII Norm as Tested Skin: Normal Color, Warm/Dry Lymphatic: No Adenopathy Progress/Results/Core Measures Suspected Sepsis SIRS Temperature: Pulse: Respiratory Rate: Blood Pressure / Mean: Results/Orders My Orders Orders - PRIYA HAYS MD Ceftriaxone 1 Gm Pre-Mix (Rocephin 1 Gm (08/10/21 17:15) Ns Iv 1000 Ml (Sodium Chloride 0.9%) (08/10/21 17:14) Iv/Invasive Line Insertion .IV start (08/10/21 17:31) Medications Given in ED Current Medications Medications Dose Ordered Sig/Priyanka Route Start Time Stop Time Status Last Admin Dose Admin Ceftriaxone Sodium/Dextrose 50 ml @ 100 mls/hr ONCE ONCE IV 08/10/21 17:15 08/10/21 17:44 08/10/21 17:32 100 MLS/HR Vital Signs/I&O 08/10/21 17:09 Temp 36.3 Pulse 100 Resp 20 B/P (MAP) Pulse Ox 95 O2 Delivery Room Air Capillary Refill : Progress Note : Progress Note 71-year-old female with above history coming in due to more confusion based on the caregivers report. Increasing general weakness with increasing falls. She is refusing to take her p.o. medication which is problematic given her UTI. Her white count was 18 yesterday, lactate normal, urine with nitrites, greater than 100 white blood cells consistent with infection. Given ceftriaxone here as a follow-up dose from yesterday since she is not taking her p.o. medication. Discussed the case with the hospitalist and given this is her third ER visit in 24 hours we will admit her as an inpatient, especially given she is not tolerating p.o. and may need placement in a facility given her current caregivers have been unable to take care of her. Departure Impression Primary Impression: UTI (urinary tract infection) Qualified Codes: N30.00 - Acute cystitis without hematuria Additional Impressions: Weakness Frequent falls Brain metastases Disposition: ADMITTED INPATIENT Condition: Stable Admissions Decision to Admit Reason: Admit from ER (General) Decision to Admit/Date: Aug 10, 2021 Time/Decision to Admit Time: 17:10 Departure-Patient Inst. Referrals: NO,LOCAL PHYSICIAN (PCP) Primary Care Physician KAMILAH MEZA (Family) Primary Care Physician PRIYA HAYS MD Aug 10, 2021 17:19
[2021-08-10 20:00] VITALS: BP 136/94
[2021-08-10] MEDS ORDERED: RT-ALBUTEROL/IPRATROPIUM 3 ML (DUONEB) VIAL INH PRN (20:30)
[2021-08-10] MEDS ORDERED: OLANZapine 5 MG (ZyPREXA) TAB PO PRN (22:30)
[2021-08-10] MEDS ORDERED: CATHETER FLUSH 10 ML SYR IVP PRN (22:30)
[2021-08-10] MEDS ORDERED: ACETAMINOPHEN 500 MG TAB (TYLENOL) PO PRN (22:30)
[2021-08-10] MEDS ORDERED: ONDANSETRON 4 MG/2 ML (SDV) Z0FRAN IV PRN (22:30)
[2021-08-10] MEDS: traZODone 100 MG (DESYREL) TAB PO SCH (22:55)
[2021-08-10 23:00] VITALS: BP 136/68
[2021-08-11 03:16] VITALS: BP 114/59
[2021-08-11] MEDS: inSUlin ASPART (NovoLOG) 1 UNIT/0.01 ML (CHARGE PER UNIT) SC SCH ×4 (06:03→21:04)
[2021-08-11] MEDS: PANTOPRAZOLE 40 MG (PROTONIX) TAB PO SCH (06:03)
[2021-08-11] MEDS: CATHETER FLUSH 10 ML SYR IVP SCH ×3 (06:03→19:32)
[2021-08-11 06:25] LABS: BASOPHILS % (AUTO) 1 % (0-10); EOSINOPHILS # (AUTO) 0.1 10^3/uL (0.0-0.3); EOSINOPHILS % (AUTO) 2 % (0-10); HEMATOCRIT 30 % (35-52); HEMOGLOBIN 9.9 g/dL (11.5-16.0); LYMPHOCYTES % (AUTO) 33 % (12-44); MEAN CORPUSCULAR HEMOGLOBIN 30 pg (25-34); MEAN CORPUSCULAR HGB CONC 33 g/dL (32-36); MEAN CORPUSCULAR VOLUME 90 fL (80-99); MEAN PLATELET VOLUME 10.3 fL (9.0-12.2); MONOCYTES # (AUTO) 0.1 10^3/uL (0.0-1.0); MONOCYTES % (AUTO) 5 % (0-12); NEUTROPHILS # (AUTO) 1.7 10^3/uL (1.8-7.8); NEUTROPHILS % (AUTO) 59 % (42-75); PLATELET COUNT 180 10^3/uL (130-400); WHITE BLOOD COUNT 2.9 10^3/uL (4.3-11.0)
[2021-08-11 06:40] LABS: POTASSIUM 3.6 MMOL/L (3.6-5.0)
[2021-08-11 06:41] LABS: CALCIUM 8.8 MG/DL (8.5-10.1)
[2021-08-11 06:46] LABS: CREATININE SERUM 0.81 MG/DL (0.60-1.30)
[2021-08-11 07:31] VITALS: BP 127/70
[2021-08-11] MEDS: ASPIRIN 81 MG CHEW (CHILDREN'S ASA) PO SCH (08:15)
--- NOTE | 2021-08-11 11:32 | History & Physical-Hospitalist ---
History of Present Illness HPI/Chief Complaint Pt is a 71yo female with a past medical history of metastatic small cell lung carcinoma, insulin-dependent diabetes, schizophrenia, COPD, hypertension who presented to the emergency department due to behavioral issues. She has been seen in the emergency department 3 times in the last 24 hours and was diagnosed with urinary tract infection. Patient states she is quite susceptible to those. She was treated with Rocephin in the emergency department but despite this continue to worsen prompting her caregiver to bring her back to the hospital. She states that her caregiver is her . Per the ER note he has been providing her care but patient states he has not done much. 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 She overall has no complaints and her only concern is about getting her port accessed. Date Seen 08/11/21 Time Seen by a Provider: 10:30 Attending Physician David Nicholas MD PCP Deleted Referring Physician Date of Admission Aug 10, 2021 at 17:28 Home Medications & Allergies Home Medications Reviewed patient Home Medication Reconciliation performed by pharmacy medication reconciliations dental technician metal and/or nursing. Patients Allergies have been reviewed. Allergies Allergies Coded Allergies latex (Verified Allergy, Mild, rash, 12/10/14) ampicillin (Unverified Allergy, Unknown, 02/07/14) cetirizine HCl (Unverified Allergy, Unknown, 02/07/14) dimenhydrinate (Unverified Allergy, Unknown, 02/07/14) metformin HCl (Unverified Adverse Reaction, Unknown, 02/07/14) CAN TAKE METFORMIN Past Grdfynw-Lvzrez-Xwmynk Hx Patient Social History Marrital Status: Employed/Student: retired Tobacco Use?: No Smoking Status: Unknown if Ever Smoked Use of E-Cig and/or Vaping dev: No Substance use?: No Alcohol Use?: No Pt feels they are or have been: Unable to obtain Immunizations Up To Date Date of Influenza Vaccine: Feb 06, 2021 First/Initial COVID19 Vaccinat: 2020 Second COVID19 Vaccination Gurdeep: 2020 Date of Pneumonia Vaccine: Mar 11, 2021 Seasonal Allergies Seasonal Allergies: Yes Current Status status: No Advance Directives: No Communicates: Verbally Primary Language: British Preferred Spoken Language: British Is interpretation needed?: No Past Medical History Surgeries: Adenoidectomy, Tonsillectomy Asthma, COPD, Emphysema Currently Using CPAP: No Currently Using BIPAP: No High Cholesterol, Hypertension Brain Tumor Bladder Infection Gastroesophageal Reflux, Diverticulosis Arthritis, Chronic Back Pain Diabetes, Insulin dep Brain, Lung Anxiety, Personality Disorder, Schizophrenia, Depression Eczema Blood Disorders: No Review of Systems Constitutional: see HPI; No chills, No fever; weakness EENTM: no symptoms reported Respiratory: no symptoms reported Cardiovascular: no symptoms reported Gastrointestinal: loss of appetite; No nausea, No vomiting Genitourinary: No discharge, No dysuria Musculoskeletal: no symptoms reported Skin: no symptoms reported Psychiatric/Neurological: No Symptoms Reported Physical Exam Physical Exam Vital Signs Vital Signs - First Documented 08/10/21 08/10/21 08/10/21 17:09 20:00 20:14 Temp 36.3 Pulse 100 Resp 20 B/P (MAP) 136/94 (108) Pulse Ox 95 O2 Delivery Room Air FiO2 21 Capillary Refill : Less Than 3 Seconds Height, Weight, BMI Height: 5'3.50" Weight: 179lbs. oz. 81.931943jf; 25.00 BMI Method: General Appearance: No Apparent Distress, Chronically ill HEENT: PERRL/EOMI, Moist Mucous Membranes Neck: Normal Inspection, Supple Respiratory: Lungs Clear, No Accessory Muscle Use, No Respiratory Distress Cardiovascular: Regular Rate, Rhythm, No JVD, No Murmur Gastrointestinal: Normal Bowel Sounds, Non Tender, Soft Neurologic/Psychiatric: Alert, Oriented x3, Normal Mood/Affect Results Results/Procedures Labs Laboratory Tests 08/11/21 05:53 08/12/21 10:00 Patient resulted labs reviewed. Imaging: Reviewed Imaging Report Imaging [facility] [place], [place] NAME: SUNIL HYMAN [facility] REC#: [id number] PT STATUS: REG ER : 1950 PHYSICIAN: VASU TURNER DO ADMIT DATE: 08/09/21/ER FS Signed Date of Exam:08/09/21 CT HEAD WO PROCEDURE: CT head without contrast. TECHNIQUE: Multiple contiguous axial images were obtained through the brain without the use of intravenous contrast. Auto Exposure Controls were utilized during the CT exam to meet ALARA standards for radiation dose reduction. INDICATION: 71-year-old female, altered mental status. CORRELATION STUDY: 06/04/2021 FINDINGS: Examination is compromised by motion artifact. The ventricles and sulci are age-appropriate. Scattered areas of decreased attenuation, likely reflective of chronic small vessel ischemic disease. Slightly more pronounced in the deep right frontal lobe white matter. More focal regional area of low-attenuation in the central right cerebellum is present. This is changed from prior with apparent interval occipital craniotomy. Likely resection of a previous mass. Definitive new area of decreased attenuation to suggest edema is not suggested. Apart from the occipital craniectomy, bony calvarium otherwise intact. There is moderate mucosal thickening and an air-fluid level of the sphenoid sinuses. Slight heterogeneous low attenuation of the skull base. IMPRESSION: 1. Negative for acute intracranial abnormality. However, the examination is compromised by significant patient motion artifact. 2. Interval occipital craniotomy with likely resection of a right cerebellar mass. Surgical cystic operative bed appearing unremarkable. Dictated by: Dictated on workstation # [id number] Dict: 08/09/21 1045 Trans: 08/09/21 1123 [facility] [id number] Interpreted by: CORBY CLAYTON DO Electronically signed by: CORBY CLAYTON DO 08/09/21 1123 Assessment/Plan Admission Diagnosis UTI Admission Status: Inpatient Order (span 2 midnights) Reason for Inpatient Admission: see below Assessment and Plan UTI with weakness and confusion Failed outpatient management Continue IV abx Await cultures PT/OT sales representative facility services for possible placement Metastatic small cell long cancer Brain mets Pancytopenia Discussed with Dr Rousseau, last had chemo on 07/24 and received neulasta on 08/04 He advised no further intervention at this time for pancytopenia as she had already received treatment Clarified that her cancer is not curable but that he plans to continue to see her and offer palliative chemotherapy as she is able Patient at this time is requesting to continue with chemotherapy Discussed code status with patient and Dr Rousseau. Does not have previous code status documented, reports to me she would like to be a DNR and says "just pull the plug" I clarified that this meant if her heart stopped that she would if we did not intervene and she states "Yes. Just pull the plug." She does not have an assigned DPOA and is unsure who she woudl want to make decisions for her palliative care RN consulted, if she remains consistent with desire for DNR status will place order and attempt to fill out advance directive IDDMII HTN HLD Schizophrenia Resume home meds when med rec done Continue home insulin DVT ppx: DAVID Olivas MD Aug 11, 2021 11:32
[2021-08-11 11:58] VITALS: BP 119/59
[2021-08-11] MEDS: ENOXAPARIN 40 MG/0.4 ML (LOVENOX) SYR SQ SCH (12:28)
--- NOTE | 2021-08-11 14:18 | Physical Therapy Evaluation ---
PT Evaluation-General Medical Diagnosis Admission Date Aug 10, 2021 at 17:28 Medical Diagnosis: UTI/weakness Onset Date: Aug 10, 2021 Therapy Diagnosis Therapy Diagnosis: debility/weakness Height/Weight Height (Feet): 5 Height (Inches): 3.50 Weight (Pounds): 179 Precautions Precautions/Isolations: Fall Prevention, Standard Precautions Referral Physician: Yu Reason for Referral: Evaluation/Treatment Medical History Pertinent Medical History: COPD, DM, HTN Additional Medical History metastatic cancer (brain,lung)/schizophrenia Current History ER x 3 visits withing 24 hours Reviewed History: Yes Social History Home: Single Level Current Living Status: ex Prior Prior Level of Function SCALE: Activities may be completed with or without assistive devices. 7-Nucsypvfhy-msfdiim completes the activity by him/herself with no assistance from a helper. 5-Set-up or Clean-up Assistance-helper sets up or cleans up; patient completes activity. [place] assists only prior to or following the activity. 4-Supervision or Touching Assistance-helper provides verbal cues and/or touching/steadying and/or contact guard assistance as patient completes activity. Assistance may be provided throughout the activity or intermittently. 3-Partial/Moderate Assistance-helper does LESS THAN HALF the effort. [place] lifts, holds or supports trunk or limbs, but provides less than half the effort. 2-Substantial/Maximal Assistance-helper does MORE THAN HALF the effort. [place] lifts or holds trunk or limbs and provides more than half the effort. 8-Yxkguclrc-strwwt does ALL the effort. Patient does none of the effort to complete the activity. Or, the assistance of 2 or more helpers is required for the patient to complete the activity. If activity was not attempted, code reason: 7-Patient Refused. 9-Not Applicable-not attempted and the patient did not perform the activity before the current illness, exacerbation or injury. 10-Not Attempted due to Environmental Limitations-(lack of equipment, weather restraints, etc.). 88-Not Attempted due to Medical Conditions or Safety Concerns. Bed Mobility: 6 Transfers (B,C,W/C): 6 Gait: 6 Indoor Mobility (Ambulation): Independent Prior Devices Use: Walker PT Evaluation-Current Subjective Patient is very talkative today. Initially refused PT, however, eventually agrees. Objective Patient Orientation: Person ROM/Strength ROM Lower Extremities bilateral LE WFL Strength Lower Extremities 4-/5 grossly bilateral LE Integumentary/Posture Bowel Incontinence: No Bladder Incontinence: No Posture WFL Neuromuscular (Tone, Coordination, Reflexes) grossly intact Sensory Vision: Functional Hearing: Functional Transfers Sit to Lying (QC): 6 Lying to Sitting/Side of Bed(Q: 6 Sit to Stand (QC): 4 Chair/Jnm-fg-Rrhdo Xfer(QC): 4 Toilet Transfer (QC): 4 Gait Does the Patient Walk?: Yes Mode of Locomotion: Walk Anticipated Mode of Locomotion: Walk Walk 10 feet (QC): 4 Walk 50 ft with 2 Turns(QC): 4 Walk 150 ft (QC): 4 Distance: 150' Gait Assistive Device: FWW Comments/Gait Description CGA for safety Balance Sitting Static: Normal Sitting Dynamic: Normal Standing Static: Fair Standing Dynamic: Fair Assessment/Needs Patient very talkative with difficulty following direction due to attention and processing. Patient is SBA to CGA for safety with all mobility. Rehab Potential: Guarded PT Intrusion Analyst Goals Custodial Goals PT Custodial Goals Time Frame: Aug 22, 2021 Roll Left & Right (QC): 6 Sit to Lying (QC): 6 Lying-Sitting on Side/Bed(QC): 6 Sit to Stand (QC): 6 Chair/Qki-iy-Qzhog Xfer(QC): 6 Toilet Transfer (QC): 6 Walk 10 feet (QC): 4 Walk 50ft with 2 Turns (QC): 4 Walk 150 ft (QC): 4 PT Plan Problem List Problem List: Activity Tolerance, Functional Strength, Safety, Balance, Gait, Transfer Treatment/Plan Treatment Plan: Continue Plan of Care Treatment Plan: Education, Functional Activity Mackenzie, Functional Strength, Gait, Safety, Therapeutic Exercise, Transfers Treatment Duration: Aug 22, 2021 Frequency: 6 times per week Estimated Hrs Per Day: .25 hour per day Time/GCodes Time In: 1345 Time Out: 1401 Total Billed Treatment Time: 16 Total Billed Treatment 1 visit EVMod 16 min MALU MORRISON PT Aug 11, 2021 14:18
--- NOTE | 2021-08-11 15:15 | Occupational Therapy Eval ---
OT Evaluation-General/PLF Medical Diagnosis Admission Date Aug 10, 2021 at 17:28 Medical Diagnosis: UTI/weakness Onset Date: Aug 10, 2021 Therapy Diagnosis Therapy Diagnosis: decreased ADL status Height/Weight Height (Feet): 5 Height (Inches): 3.50 Weight (Pounds): 179 Precautions Precautions/Isolations: Fall Prevention, Standard Precautions Referral Physician: Yu Referral Reason: Evaluation/Treatment Medical History Pertinent Medical History: COPD, DM, HTN Additional Medical History metastatic small cell lung cancer, DM, schizophrenia, COPD, HTN Current History ED due to behavioral issues, has been seen in ED 3 times within 24 hours prior to admission, dx with UTI Social History Home: Single Level Current Living Status: ex Pt indicates her ex told her not to return to the house and she doesn't have anywhere to return to. ADL-Prior Level of Function SCALE: Activities may be completed with or without assistive devices. 9-Chhxwtazmp-kuujqhz completes the activity by him/herself with no assistance from a helper. 5-Set-up or Clean-up Assistance-helper sets up or cleans up; patient completes activity. [place] assists only prior to or following the activity. 4-Supervision or Touching Assistance-helper provides verbal cues and/or touching/steadying and/or contact guard assistance as patient completes activity. Assistance may be provided throughout the activity or intermittently. 3-Partial/Moderate Assistance-helper does LESS THAN HALF the effort. [place] lifts, holds or supports trunk or limbs, but provides less than half the effort. 2-Substantial/Maximal Assistance-helper does MORE THAN HALF the effort. [place] lifts or holds trunk or limbs and provides more than half the effort. 2-Ksfledisj-fsvlyn does ALL the effort. Patient does none of the effort to complete the activity. Or, the assistance of 2 or more helpers is required for the patient to complete the activity. If activity was not attempted, code reason: 7-Patient Refused. 9-Not Applicable-not attempted and the patient did not perform the activity before the current illness, exacerbation or injury. 10-Not Attempted due to Environmental Limitations-(lack of equipment, weather restraints, etc.). 88-Not Attempted due to Medical Conditions or Safety Concerns. ADL PLOF Comments Pt reports IND with ADLs and functional mobility at PLOF, using walker. Self Care: Independent Functional Cognition: Independent OT Current Status Subjective Pt in bed, agreeable to OT Tx. Pt easily distracted throughout session, requiring redirection. Pt requests OT to erase the black numbers on her dry erase board throughout tx, redirection given to those numbers being pt's room phone number, and are unable to be erased. Mental Status/Objective Patient Orientation: Person, Confused Current Upper Extremity ROM WFL Upper Extremity Strength grossly 3+/5 ADL-Treatment Eating (QC): 6 (Per pt report.) Toileting Hygiene (QC): 4 (SBA, pt able to manage hygiene and clothing management.) Other Treatments Pt in bed, agreeable to OT Tx. Pt transferred supine to sit EOB, independently, then used FWW to go into bathroom, SBA. Pt sat on toilet, completed toileting, requiring cues/redirection to task, due to pt talking and getting off subject. Pt required cues for hand placement in order to stand from toilet (CGA), then stood at sink to wash her hands, SBA. Pt returned to EOB, SBA, then transferred supine independently. Post tx, pt in bed, call light in reach and all needs met. Bed alarm activated. Education OT Patient Education: Correct positioning, Energy conservation, Modified ADL techniques, Progress toward Goal/Update tx plan, Purpose of tx/functional activities Teaching Recipient: Patient Teaching Methods: Discussion Response to Teaching: Verbalize Understanding OT Longterm Goals Longterm Goals Time Frame: Aug 21, 2021 Eating (QC): 6 Oral Hygiene (QC): 4 Toileting Hygiene (QC): 4 Shower/Bathe Self (QC): 4 Upper Body Dressing (QC): 5 Lower Body Dressing (QC): 4 On/Off Footwear (QC): 4 Additional Goals: 1-Demonstrate ADL Tasks, 2-Verbalize Understanding, 3- ImproveStrength/Mackenzie 1=Demonstrate adherence to instructed precautions during ADL tasks. 2=Patient will verbalize/demonstrate understanding of assistive devices/modifications for ADL. 3=Patient will improve strength/tolerance for activity to enable patient to perform ADL's. OT Education/Plan Problem List/Assessment Assessment: Decreased Activ Tolerance, Decreased Safety Aware, Decreased UE Strength, Impaired Funct Balance, Impaired I ADL's, Impaired Self-Care Skills Discharge Recommendations Plan/Recommendations: Continue POC Treatment Plan/Plan of Care Patient would benefit from OT for education, treatment and training to promote independence in ADL's, mobility, safety and/or upper extremity function for ADL's. Plan of Care: ADL Retraining, Functional Mobility, UE Funct Exercise/Act Treatment Duration: Aug 21, 2021 Frequency: 3 times per week (3-5 times per week) Estimated Hrs Per Day: .25 hour per day Rehab Potential: Guarded Time/GCodes Start Time: 14:33 Stop Time: 14:53 Total Time Billed (hr/min): 20 Billed Treatment Time 1, ANGELITO DAVIS OT Aug 11, 2021 15:15
[2021-08-11 15:41] VITALS: BP 133/58
[2021-08-11] MEDS ORDERED: RT-ALBUINH INH (16:15)
[2021-08-11] MEDS ORDERED: DEXA4TAB PO (16:15)
[2021-08-11] MEDS ORDERED: INSU200I4 SC (16:15)
[2021-08-11] MEDS ORDERED: INSU100I14 SQ (16:15)
[2021-08-11] MEDS ORDERED: cefTRIAXone 1 GM IV (PRE-MIX) 50 ML IV SCH (18:00)
[2021-08-11] MEDS: SIMvastatin 20 MG (ZOCOR) TAB PO SCH (19:32)
[2021-08-11] MEDS: traZODone 100 MG (DESYREL) TAB PO SCH (19:32)
[2021-08-11 19:51] VITALS: BP 133/78
[2021-08-11 23:35] VITALS: BP 120/60
[2021-08-12 03:36] VITALS: BP 115/64
[2021-08-12] MEDS: PANTOPRAZOLE 40 MG (PROTONIX) TAB PO SCH (05:13)
[2021-08-12] MEDS: CATHETER FLUSH 10 ML SYR IVP SCH ×3 (05:13→20:40)
[2021-08-12] MEDS: inSUlin ASPART (NovoLOG) 1 UNIT/0.01 ML (CHARGE PER UNIT) SC SCH ×4 (05:13→20:12)
[2021-08-12] MEDS: ASPIRIN 81 MG CHEW (CHILDREN'S ASA) PO SCH (08:11)
[2021-08-12 08:51] VITALS: BP 127/60
[2021-08-12 10:09] LABS: HEMATOCRIT 30 % (35-52); HEMOGLOBIN 9.9 g/dL (11.5-16.0); MEAN CORPUSCULAR HEMOGLOBIN 31 pg (25-34); MEAN CORPUSCULAR HGB CONC 33 g/dL (32-36); MEAN CORPUSCULAR VOLUME 91 fL (80-99); MEAN PLATELET VOLUME 10.3 fL (9.0-12.2); PLATELET COUNT 168 10^3/uL (130-400); WHITE BLOOD COUNT 1.9 10^3/uL (4.3-11.0)
[2021-08-12 10:30] LABS: CALCIUM 8.6 MG/DL (8.5-10.1); CREATININE SERUM 1.02 MG/DL (0.60-1.30); POTASSIUM 4.4 MMOL/L (3.6-5.0)
--- NOTE | 2021-08-12 10:48 | Physical Therapy Daily Note ---
PT Daily Note-Current Subjective Patient was in bed upon entry and consented to treat. Patient was in a good mood and had no new complaints. Pain Location: No Pain Reported Mental Status Patient Orientation: Person, Confused Transfers SCALE: Activities may be completed with or without assistive devices. 3-Hwujnvsihn-yxjzhng completes the activity by him/herself with no assistance from a helper. 5-Set-up or Clean-up Assistance-helper sets up or cleans up; patient completes activity. [place] assists only prior to or following the activity. 4-Supervision or Touching Assistance-helper provides verbal cues and/or touching/steadying and/or contact guard assistance as patient completes activity. Assistance may be provided throughout the activity or intermittently. 3-Partial/Moderate Assistance-helper does LESS THAN HALF the effort. [place] lifts, holds or supports trunk or limbs, but provides less than half the effort. 2-Substantial/Maximal Assistance-helper does MORE THAN HALF the effort. [place] lifts or holds trunk or limbs and provides more than half the effort. 6-Zpxwjxtxd-nydgwc does ALL the effort. Patient does none of the effort to complete the activity. Or, the assistance of 2 or more helpers is required for the patient to complete the activity. If activity was not attempted, code reason: 7-Patient Refused. 9-Not Applicable-not attempted and the patient did not perform the activity before the current illness, exacerbation or injury. 10-Not Attempted due to Environmental Limitations-(lack of equipment, weather restraints, etc.). 88-Not Attempted due to Medical Conditions or Safety Concerns. Lying to Sitting/Side of Bed(Q: 3 Sit to Stand (QC): 3 Gait Training Distance: 150', 50' Walk 10 feet (QC): 4 Walk 50 ft with 2 Turns(QC): 4 Walk 150 ft (QC): 4 Gait Assistive Device: FWW CGA. Normal gait pattern. Wheelchair Training Does the Pt Use a Wheelchair?: No Treatments Transfers, mobility, ambulation Assessment Current Status: Fair Progress Patient walked well this morning, and was able to ambulate 150' with CGA and FWW before needing a rest break. Patient had some weakness with sit to stand transfers and required at min assist. Patient was left in bed with call light, tray, and all needs met bed alarm on. PT Used Car Salesperson Goals Group Home Goals PT Used Car Salesperson Goals Time Frame: Aug 22, 2021 Roll Left & Right (QC): 6 Sit to Lying (QC): 6 Lying-Sitting on Side/Bed(QC): 6 Sit to Stand (QC): 6 Chair/Uxc-dk-Kvoza Xfer(QC): 6 Toilet Transfer (QC): 6 Walk 10 feet (QC): 4 Walk 50ft with 2 Turns (QC): 4 Walk 150 ft (QC): 4 PT Plan Problem List Problem List: Activity Tolerance, Functional Strength, Safety, Balance, Gait, Transfer, Bed Mobility, ROM Treatment/Plan Treatment Plan: Continue Plan of Care Treatment Plan: Education, Functional Activity Mackenzie, Functional Strength, Gait, Safety, Therapeutic Exercise, Transfers Treatment Duration: Aug 22, 2021 Frequency: 6 times per week Estimated Hrs Per Day: .25 hour per day Safety Risks/Education Patient Education: Gait Training, Transfer Techniques, Correct Positioning, Safety Issues Teaching Recipient: Patient Teaching Methods: Discussion Response to Teaching: Verbalize Understanding, Reinforcement Needed Time/GCodes Time In: 30 Time Out: 09 Total Billed Treatment Time: 15 Total Billed Treatment 1 visit FA 15min RADHA STEVENS PT Aug 12, 2021 10:48
[2021-08-12 12:36] VITALS: BP 137/57
--- NOTE | 2021-08-12 12:40 | Progress Note - Hospitalist ---
Subjective HPI/CC On Admission Date Seen by Provider: Aug 12, 2021 Time Seen by Provider: 10:00 Pt is a 71yo female with a past medical history of metastatic small cell lung carcinoma, insulin-dependent diabetes, schizophrenia, COPD, hypertension who presented to the emergency department due to behavioral issues. She has been seen in the emergency department 3 times in the last 24 hours and was diagnosed with urinary tract infection. Patient states she is quite susceptible to those. She was treated with Rocephin in the emergency department but despite this continue to worsen prompting her caregiver to bring her back to the hospital. She states that her caregiver is her . Per the ER note he has been providing her care but patient states he has not done much. 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 She overall has no complaints and her only concern is about getting her port accessed. Subjective/Events-last exam Pt reports feeling well today. better than she has in a while. No complaints. About to work with PT. Objective Exam Vital Signs Vital Signs Date Time Temp Pulse Resp B/P (MAP) Pulse Ox O2 Delivery O2 Flow Rate FiO2 08/12/21 08:51 36.6 97 18 127/60 (82) 96 Room Air 08/10/21 20:14 21 Capillary Refill : Less Than 3 Seconds General Appearance: No Apparent Distress, Chronically ill Respiratory: Lungs Clear, No Respiratory Distress Cardiovascular: Regular Rate, Rhythm, No Murmur Gastrointestinal: Normal Bowel Sounds, Non Tender, Soft Neurologic/Psychiatric: Alert, Oriented x3 Results/Procedures Lab Laboratory Tests 08/12/21 10:00 Patient resulted labs reviewed. Imaging: Reviewed Imaging Report Assessment/Plan Assessment and Plan Assess & Plan/Chief Complaint UTI with weakness and confusion Failed outpatient management Switch to keflex per c/s PT/OT director of home health services for possible placement Metastatic small cell long cancer Brain mets Pancytopenia Discussed with Dr Soham multani, last had chemo on 07/24 and received neulasta on 08/04 He advised no further intervention at this time for pancytopenia as she had already received treatment Clarified that her cancer is not curable but that he plans to continue to see her and offer palliative chemotherapy as she is able Discussed code status with patient and Dr Rousseau. Does not have previous code status documented, does not seem to understand the severity of the decision at this time to adjust code status IDDMII HTN HLD Schizophrenia Continue home meds DVT ppx: DAVID Olivas MD Aug 12, 2021 12:40
[2021-08-12] MEDS: ENOXAPARIN 40 MG/0.4 ML (LOVENOX) SYR SQ SCH (13:06)
--- NOTE | 2021-08-12 14:33 | Occupational Ther Daily Note ---
OT Current Status-Daily Note Subjective Pt in recliner, lunch in front of her. Pt kept touching the black cup on her tray table stating she is helping the therapist out. Pt required redirection frequently throughout treatment. Mental Status/Objective Patient Orientation: Person, Confused ADL-Treatment Therapy Code Descriptions/Definitions Functional [place] Measure: 0=Not Assessed/NA 4=Minimal Assistance 1=Total Assistance 5=Supervision or Setup 2=Maximal Assistance 6=Modified [place] 3=Moderate Assistance 7=Complete IndependenceSCALE: Activities may be completed with or without assistive devices. 1-Aehhfdycuf-awaavvo completes the activity by him/herself with no assistance from a helper. 5-Set-up or Clean-up Assistance-helper sets up or cleans up; patient completes activity. [place] assists only prior to or following the activity. 4-Supervision or Touching Assistance-helper provides verbal cues and/or touching/steadying and/or contact guard assistance as patient completes activity. Assistance may be provided throughout the activity or intermittently. 3-Partial/Moderate Assistance-helper does LESS THAN HALF the effort. Alexander lifts, holds or supports trunk or limbs, but provides less than half the effort. 2-Substantial/Maximal Assistance-helper does MORE THAN HALF the effort. [place] lifts or holds trunk or limbs and provides more than half the effort. 1-Xlghelkws-cdeudp does ALL the effort. Patient does none of the effort to complete the activity. Or, the assistance of 2 or more helpers is required for the patient to complete the activity. If activity was not attempted, code reason: 7-Patient Refused. 9-Not Applicable-not attempted and the patient did not perform the activity before the current illness, exacerbation or injury. 10-Not Attempted due to Environmental Limitations-(lack of equipment, weather restraints, etc.). 88-Not Attempted due to Medical Conditions or Safety Concerns. Eating (QC): 7 (OT encouraged pt to eat throughout tx, but pt did not initiate) Other Treatment Pt in recliner, agreeable to OT Tx. pt fixated on black object, touching this therapist jacket and touching the black cup on her tray table as she states she is getting rid of black to help us out. Pt touched her cup multiple times during tx. Pt able to be redirected to UE exercises in order to increase BUE strength and activity tolerance. Pt completed x10 reps each of the following: shoulder flexion, elbow flexion/extension, front punch. OT attempted to get pt to eat some of her lunch, but pt fixated on black cup, she never picked up utensils and did not start eating. At one point, pt poked her roll on her table, when asked what she is doing she replied she was getting rid of it to help us out. Post tx, pt up in recliner, call light in reach and all needs met. Education OT Patient Education: Correct positioning, Energy conservation, Modified ADL techniques, Progress toward Goal/Update tx plan, Purpose of tx/functional activities Teaching Recipient: Patient Teaching Methods: Discussion Response to Teaching: Return Demonstration, Reinforcement Needed OT Snf Goals Snf Goals Time Frame: Aug 21, 2021 Eating (QC): 6 Oral Hygiene (QC): 4 Toileting Hygiene (QC): 4 Shower/Bathe Self (QC): 4 Upper Body Dressing (QC): 5 Lower Body Dressing (QC): 4 On/Off Footwear (QC): 4 Additional Goals: 1-Demonstrate ADL Tasks, 2-Verbalize Understanding, 3-ImproveStrength/[place]ackenzie 1=Demonstrate adherence to instructed precautions during ADL tasks. 2=Patient will verbalize/demonstrate understanding of assistive devices/modifications for ADL. 3=Patient will improve strength/tolerance for activity to enable patient to perform ADL's. OT Education/Plan Problem List/Assessment Assessment: Decreased Activ Tolerance, Decreased Safety Aware, Decreased UE Strength, Impaired Cognition, Impaired Funct Balance, Impaired I ADL's, Impaired Self-Care Skills Discharge Recommendations Plan/Recommendations: Continue POC Treatment Plan/Plan of Care Patient would benefit from OT for education, treatment and training to promote independence in ADL's, mobility, safety and/or upper extremity function for ADL's. Plan of Care: ADL Retraining, Functional Mobility, UE Funct Exercise/Act Treatment Duration: Aug 21, 2021 Frequency: 3 times per week (3-5 times per week) Estimated Hrs Per Day: .25 hour per day Rehab Potential: Guarded Time/GCodes Start Time: 14:05 Stop Time: 14:15 Total Time Billed (hr/min): 10 Billed Treatment Time 1, EX ANGELITO BALLESTEROS OT Aug 12, 2021 14:33
[2021-08-12 16:00] VITALS: BP 139/73
[2021-08-12 19:35] VITALS: BP 137/68
[2021-08-12] MEDS: SIMvastatin 20 MG (ZOCOR) TAB PO SCH (20:40)
[2021-08-12] MEDS: CEPHALEXIN 250 MG (KEFLEX) CAP PO SCH (20:40)
[2021-08-12] MEDS: traZODone 100 MG (DESYREL) TAB PO SCH (20:40)
[2021-08-12 23:27] VITALS: BP 103/68
[2021-08-13] MEDS: inSUlin ASPART (NovoLOG) 1 UNIT/0.01 ML (CHARGE PER UNIT) SC SCH ×4 (06:03→21:36)
[2021-08-13] MEDS: CATHETER FLUSH 10 ML SYR IVP SCH ×3 (06:03→20:23)
[2021-08-13] MEDS: PANTOPRAZOLE 40 MG (PROTONIX) TAB PO SCH (06:17)
[2021-08-13 06:20] LABS: BASOPHILS % (AUTO) 1 % (0-10); EOSINOPHILS % (AUTO) 1 % (0-10); HEMATOCRIT 27 % (35-52); MEAN CORPUSCULAR HEMOGLOBIN 30 pg (25-34); MEAN CORPUSCULAR HGB CONC 34 g/dL (32-36); MEAN CORPUSCULAR VOLUME 89 fL (80-99)
[2021-08-13 06:22] LABS: LYMPHOCYTES # (AUTO) 0.8 10^3/uL (1.0-4.0); LYMPHOCYTES % (AUTO) 56 % (12-44); MONOCYTES # (AUTO) 0.1 10^3/uL (0.0-1.0); MONOCYTES % (AUTO) 9 % (0-12); NEUTROPHILS # (AUTO) 0.5 10^3/uL (1.8-7.8); NEUTROPHILS % (AUTO) 32 % (42-75); PLATELET COUNT 98 10^3/uL (130-400)
[2021-08-13 06:24] LABS: WHITE BLOOD COUNT 1.4 10^3/uL (4.3-11.0)
[2021-08-13 06:31] LABS: CALCIUM 8.7 MG/DL (8.5-10.1)
[2021-08-13 06:36] LABS: CREATININE SERUM 0.73 MG/DL (0.60-1.30)
[2021-08-13 07:00] VITALS: BP 123/56
[2021-08-13] MEDS: DULoxetine 30 MG (CYMBALTA) CAP PO SCH (08:55)
[2021-08-13] MEDS: ASPIRIN 81 MG CHEW (CHILDREN'S ASA) PO SCH (08:55)
[2021-08-13] MEDS: CEPHALEXIN 250 MG (KEFLEX) CAP PO SCH ×2 (08:55→20:22)
--- NOTE | 2021-08-13 10:21 | Physical Therapy Daily Note ---
PT Daily Note-Current Subjective Patient is in bed and very agreeable to participate with therapy. Noted increase confusion on this date but very pleasant. Mental Status Patient Orientation: Confused Transfers SCALE: Activities may be completed with or without assistive devices. 1-Miukkcsgzy-cdnyess completes the activity by him/herself with no assistance from a helper. 5-Set-up or Clean-up Assistance-helper sets up or cleans up; patient completes activity. [place] assists only prior to or following the activity. 4-Supervision or Touching Assistance-helper provides verbal cues and/or touching/steadying and/or contact guard assistance as patient completes activity. Assistance may be provided throughout the activity or intermittently. 3-Partial/Moderate Assistance-helper does LESS THAN HALF the effort. [place] lifts, holds or supports trunk or limbs, but provides less than half the effort. 2-Substantial/Maximal Assistance-helper does MORE THAN HALF the effort. [place] lifts or holds trunk or limbs and provides more than half the effort. 9-Yurvvyiuw-fwfixz does ALL the effort. Patient does none of the effort to complete the activity. Or, the assistance of 2 or more helpers is required for the patient to complete the activity. If activity was not attempted, code reason: 7-Patient Refused. 9-Not Applicable-not attempted and the patient did not perform the activity before the current illness, exacerbation or injury. 10-Not Attempted due to Environmental Limitations-(lack of equipment, weather restraints, etc.). 88-Not Attempted due to Medical Conditions or Safety Concerns. Lying to Sitting/Side of Bed(Q: 6 Sit to Stand (QC): 4 Chair/Evp-zn-Rxwbb Xfer(QC): 4 SBA for safety (chair alarm activated after session) Gait Training Does the Patient Walk?: Yes Distance: 250' Walk 10 feet (QC): 3 Walk 50 ft with 2 Turns(QC): 3 Walk 150 ft (QC): 3 Gait Assistive Device: FWW Patient had more difficulty with ambulation with listing to right requiring PT to correct. Assessment Patient very easily distracted on this date requiring tactile and verbal cues to remain on task and complete tasks. Increase activity as tolerated by patient. PT Turf Manager Goals Longterm Goals PT Longterm Goals Time Frame: Aug 22, 2021 Roll Left & Right (QC): 6 Sit to Lying (QC): 6 Lying-Sitting on Side/Bed(QC): 6 Sit to Stand (QC): 6 Chair/Vwk-ao-Rvjgs Xfer(QC): 6 Toilet Transfer (QC): 6 Walk 10 feet (QC): 4 Walk 50ft with 2 Turns (QC): 4 Walk 150 ft (QC): 4 PT Plan Treatment/Plan Treatment Plan: Continue Plan of Care Treatment Plan: Education, Functional Activity [place], Functional Strength, Gait, Safety, Therapeutic Exercise, Transfers Treatment Duration: Aug 22, 2021 Frequency: 6 times per week Estimated Hrs Per Day: .25 hour per day Time/GCodes Time In: 940 Time Out: 950 Total Billed Treatment Time: 10 Total Billed Treatment 1 visit GT 10 min MALU MORRISON PT Aug 13, 2021 10:21
[2021-08-13 11:00] VITALS: BP 137/68
--- NOTE | 2021-08-13 11:23 | Occupational Ther Daily Note ---
OT Current Status-Daily Note Subjective Pt up in recliner, breakfast tray in front of her. Pt very confused throughout tx, pleasant, required frequent redirection with verbal and tactile cues. ADL-Treatment Therapy Code Descriptions/Definitions Functional [place] Measure: 0=Not Assessed/NA 4=Minimal Assistance 1=Total Assistance 5=Supervision or Setup 2=Maximal Assistance 6=Modified [place] 3=Moderate Assistance 7=Complete IndependenceSCALE: Activities may be completed with or without assistive devices. 2-Tfkodktxvx-uazmmer completes the activity by him/herself with no assistance from a helper. 5-Set-up or Clean-up Assistance-helper sets up or cleans up; patient completes activity. [place] assists only prior to or following the activity. 4-Supervision or Touching Assistance-helper provides verbal cues and/or touching/steadying and/or contact guard assistance as patient completes activity. Assistance may be provided throughout the activity or intermittently. 3-Partial/Moderate Assistance-helper does LESS THAN HALF the effort. [place] lifts, holds or supports trunk or limbs, but provides less than half the effort. 2-Substantial/Maximal Assistance-helper does MORE THAN HALF the effort. [place] lifts or holds trunk or limbs and provides more than half the effort. 1-Swoijqxad-dhpdeu does ALL the effort. Patient does none of the effort to complete the activity. Or, the assistance of 2 or more helpers is required for the patient to complete the activity. If activity was not attempted, code reason: 7-Patient Refused. 9-Not Applicable-not attempted and the patient did not perform the activity before the current illness, exacerbation or injury. 10-Not Attempted due to Environmental Limitations-(lack of equipment, weather restraints, etc.). 88-Not Attempted due to Medical Conditions or Safety Concerns. Eating (QC): 2 (Max A with breakfast. Pt would not initate eating, but opened her mouth, chewed and swallowed food when brought to her mouth, cues required) Other Treatment OT assisted pt with feeding, OT set up pts tray and encouraged pt to eat. Pt did not initiate task. OT brought small bites of food to pt's mouth, with cues to open mouth, OT placed food into pt's mouth, pt closed her mouth, chewed and swallowed. Pt distracted throughout tx, required frequent cues and redirection to task. Pt ate about half of a biscuit, a couple bites of eggs, a grape, and a little orange juice. Post tx, pt in recliner, call light in reach and all needs met, chair alarm activated, nurse aware of pt's position. Education OT Patient Education: Correct positioning, Energy conservation, Modified ADL techniques, Progress toward Goal/Update tx plan, Purpose of tx/functional activi ties, Rehab process Teaching Recipient: Patient Teaching Methods: Demonstration Response to Teaching: Return Demonstration, Reinforcement Needed OT Nursing Home Goals Nursing Home Goals Time Frame: Aug 21, 2021 Eating (QC): 6 Oral Hygiene (QC): 4 Toileting Hygiene (QC): 4 Shower/Bathe Self (QC): 4 Upper Body Dressing (QC): 5 Lower Body Dressing (QC): 4 On/Off Footwear (QC): 4 Additional Goals: 1-Demonstrate ADL Tasks, 2-Verbalize Understanding, 3- ImproveStrength/[place] 1=Demonstrate adherence to instructed precautions during ADL tasks. 2=Patient will verbalize/demonstrate understanding of assistive devices/m odifications for ADL. 3=Patient will improve strength/tolerance for activity to enable patient to perform ADL's. OT Education/Plan Problem List/Assessment Assessment: Decreased Activ Tolerance, Decreased Safety Aware, Decreased UE Strength, Impaired Cognition, Impaired Funct Balance, Impaired I ADL's, Impaired Self-Care Skills Discharge Recommendations Plan/Recommendations: Continue POC Treatment Plan/Plan of Care Patient would benefit from OT for education, treatment and training to promote independence in ADL's, mobility, safety and/or upper extremity function for ADL's. Plan of Care: ADL Retraining, Functional Mobility, UE Funct Exercise/Act Treatment Duration: Aug 21, 2021 Frequency: 3 times per week (3-5 times per week) Estimated Hrs Per Day: .25 hour per day Rehab Potential: Guarded Time/GCodes Start Time: 10:52 Stop Time: 11:15 Total Time Billed (hr/min): 23 Billed Treatment Time 1, ADL 2 ANGELITO BALLESTEROS OT Aug 13, 2021 11:23
[2021-08-13] MEDS: ENOXAPARIN 40 MG/0.4 ML (LOVENOX) SYR SQ SCH (11:53)
--- NOTE | 2021-08-13 12:19 | Progress Note - Hospitalist ---
Subjective HPI/CC On Admission Date Seen by Provider: Aug 13, 2021 Time Seen by Provider: 12:17 Pt is a 71yo female with a past medical history of metastatic small cell lung carcinoma, insulin-dependent diabetes, schizophrenia, COPD, hypertension who presented to the emergency department due to behavioral issues. She has been seen in the emergency department 3 times in the last 24 hours and was diagnosed with urinary tract infection. Patient states she is quite susceptible to those. She was treated with Rocephin in the emergency department but despite this continue to worsen prompting her caregiver to bring her back to the hospital. She states that her caregiver is her . Per the ER note he has been providing her care but patient states he has not done much. 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 She overall has no complaints and her only concern is about getting her port accessed. Subjective/Events-last exam Pt reports doing well. No complaints. Sitting up in bed. Objective Exam Vital Signs Vital Signs Date Time Temp Pulse Resp B/P (MAP) Pulse Ox O2 Delivery O2 Flow Rate FiO2 08/13/21 11:00 36.5 97 19 137/68 (91) 92 Room Air 08/10/21 20:14 21 Capillary Refill : Less Than 3 Seconds General Appearance: No Apparent Distress, Chronically ill Respiratory: Lungs Clear, No Accessory Muscle Use, No Respiratory Distress Cardiovascular: Regular Rate, Rhythm, No Murmur Gastrointestinal: Normal Bowel Sounds, Non Tender, Soft Neurologic/Psychiatric: Alert, Oriented x3 Results/Procedures Lab Laboratory Tests 08/13/21 06:05 Patient resulted labs reviewed. Imaging: Reviewed Imaging Report Assessment/Plan Assessment and Plan Assess & Plan/Chief Complaint UTI with weakness and confusion Failed outpatient management Continue Keflex PT/OT account services coordinator for possible placement, awaiting decision from patient and family Metastatic small cell long cancer Brain mets Pancytopenia Discussed with Dr Rousseau on admission, last had chemo on 07/24 and received neulasta on 08/04 He advised no further intervention at this time for pancytopenia as she had already received treatment Clarified that her cancer is not curable but that he plans to continue to see her and offer palliative chemotherapy as she is able Discussed code status with patient and Dr Rousseau. Does not have previous code status documented, does not seem to understand the severity of the decision at this time to adjust code status IDDMII HTN HLD Schizophrenia Continue home meds DVT ppx: DAVID Olivas MD Aug 13, 2021 12:19
[2021-08-13 15:30] VITALS: BP 115/65
--- NOTE | 2021-08-13 15:37 | Physician Query Clarification ---
Physician Query-General Query to Physician: The medical record reflects the following clinical scenario: The patient, in the setting of History/Risk factors, Lung cancer with Mets and most recent chemo dose on 07/24, Clinical Findings WBC 2.9 decreased to 1.9, RBC 3.29 decrease to 2.97, Platelets 180 decreased to 98, Documentation of "Pancytopenia...last chemo 07/24" Discussion with patients Oncologist, Patient getting Palliative Chemo as Cancer "is not curable" Treatment Had already received Neulasta on 08/04, Lab monitoring, IV ABX, infection and bleeding precautions, Continued discussion of goals of therapy and Code status. Question: Can you further specify Pancytopenia,per the clinical indicators above? Please document your response in the Progress Notes or Discharge Summary. 1.Pancytopenia due to Chemotherapy 2. Other, with explanation of clinical findings 3. Clinically undetermined, no explanation for clinical findings Please clarify and document your clinical opinion in the Progress Notes and Discharge Summary including the definitive and/or presumptive diagnosis, (suspected or probable), related to the above clinical findings. Please include clinical findings supporting your diagnosis. In responding to this query, please exercise your independent professional judgment. The purpose of this communication is to more accurately reflect the complexity of your patients condition. The fact that a question is asked does not imply that any particular answer is desired or expected. Please remember a lack of response to the above will prompt a phone page by CDI/coding staff. Thank you for timely response to this clarification. Brenda Pires MSN, RN Clinical Asphalt Tile Floor Layer [phone] [email or web address] PHYSICIAN RESPONSE: Based on the clinical findings in the record, please respond to the query above on this document as an addendum. Physician Response: Physician Response 1 If you have questions please contact: Tree Marker: Ext: Thank you for your time and cooperation. Clinical Asphalt Tile Floor Layer/Tree Marker This is a permanent part of the medical record BRENDA PIRES Aug 13, 2021 15:37 DAVID WALLS MD Aug 14, 2021 16:50
[2021-08-13] MEDS: traZODone 100 MG (DESYREL) TAB PO SCH (20:22)
[2021-08-13] MEDS: SIMvastatin 20 MG (ZOCOR) TAB PO SCH (20:22)
[2021-08-14] VITALS: BP 115/71
[2021-08-14] MEDS: inSUlin ASPART (NovoLOG) 1 UNIT/0.01 ML (CHARGE PER UNIT) SC SCH ×2 (05:20→12:16)
[2021-08-14] MEDS: CATHETER FLUSH 10 ML SYR IVP SCH ×2 (05:24→13:15)
[2021-08-14] MEDS: PANTOPRAZOLE 40 MG (PROTONIX) TAB PO SCH (05:47)
[2021-08-14 07:30] VITALS: BP 115/63
[2021-08-14] MEDS: ASPIRIN 81 MG CHEW (CHILDREN'S ASA) PO SCH (08:34)
[2021-08-14] MEDS: CEPHALEXIN 250 MG (KEFLEX) CAP PO SCH (08:34)
[2021-08-14] MEDS: DULoxetine 30 MG (CYMBALTA) CAP PO SCH (08:34)
[2021-08-14] MEDS ORDERED: CEPH500T PO (10:44)
[2021-08-14] MEDS ORDERED: INSU100V5 SQ (10:44)
[2021-08-14] MEDS ORDERED: INSU100V16 SC (10:44)
--- NOTE | 2021-08-14 10:46 | Discharge Summary ---
Diagnosis/Chief Complaint Date of Admission Aug 10, 2021 at 17:28 Date of Discharge Discharge Date: Aug 14, 2021 Admission Diagnosis UTI Primary Care Fela Gold General Internal Medicine Doctor Discharge Summary Discharge Physical Exam Allergies: Coded Allergies: latex (Verified Allergy, Mild, rash, 12/10/14) ampicillin (Unverified Allergy, Unknown, 02/07/14) cetirizine HCl (Unverified Allergy, Unknown, 02/07/14) dimenhydrinate (Unverified Allergy, Unknown, 02/07/14) metformin HCl (Unverified Adverse Reaction, Unknown, 02/07/14) CAN TAKE METFORMIN Vitals & I&Os Vital Signs Date Time Temp Pulse Resp B/P (MAP) Pulse Ox O2 Delivery O2 Flow Rate FiO2 08/14/21 08:00 Room Air 08/14/21 07:30 36.8 83 18 115/63 (80) 90 08/10/21 20:14 21 Hospital Course Labs (last 24 hrs) Laboratory Tests 08/13/21 16:21: Glucometer 327H 08/13/21 20:59: Glucometer 238H 08/14/21 05:11: Glucometer 114H Patient resulted labs reviewed. Pending Labs Laboratory Tests 08/14/21 05:11: Glucometer 114 Imaging: Reviewed Imaging Report Discharge Home Medications: Active Scripts Active Cephalexin 500 Mg Tablet 500 Mg PO BID Levemir (Insulin Determir) 100 Unit/Ml Soln 10 Unit SQ HS Novolog (Insulin Aspart) 100 Unit/Ml Susp 0 Unit SC ACHS Reported Ventolin Hfa (Albuterol Sulfate) 1 Puff Puff 2 Puff INH Q4H PRN Tresiba Flextouch U-200 (Insulin Degludec) 200 Unit/Ml (3 Ml) Insuln.pen 50 Units SC DAILY Novolog Flexpen (Insulin Aspart) 100 Unit/Ml (3 Ml) Solution 20-25 Units SQ AC Dexamethasone 4 Mg Tablet 4 Mg PO BID Pravastatin Sodium 40 Mg Tablet 40 Mg PO HS Trazodone HCl 100 Mg Tablet 100 Mg PO HS Oxybutynin Chloride 5 Mg Tablet 5 Mg PO TID Ozempic (Semaglutide) 1 Mg/0.75 Ml Pen.injctr 1 Mg SQ WED Pantoprazole Sodium 40 Mg Tablet.dr 40 Mg PO HS Multivitamin 1 Each Tablet 1 Each PO DAILY Fenofibrate (Fenofibrate Nanocrystallized) 145 Mg Tablet 145 Mg PO HS Duloxetine HCl 60 Mg Capsule. 60 Mg PO DAILY Aspirin EC (Aspirin) 81 Mg Tablet. 81 Mg PO HS Instructions to patient/family Please see electronic discharge instructions given to patient. DAVID WALLS MD Aug 14, 2021 10:46
--- NOTE | 2021-08-14 10:46 | Discharge Inst-Skilled Nursing ---
Discharge Inst-Skilled NF Chief Complaint Pt is a 71yo female with a past medical history of metastatic small cell lung carcinoma, insulin-dependent diabetes, schizophrenia, COPD, hypertension who presented to the emergency department due to behavioral issues. She has been seen in the emergency department 3 times in the last 24 hours and was diagnosed with urinary tract infection. Patient states she is quite susceptible to those. She was treated with Rocephin in the emergency department but despite this continue to worsen prompting her caregiver to bring her back to the hospital. She states that her caregiver is her . Per the ER note he has been providing her care but patient states he has not done much. 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 She overall has no complaints and her only concern is about getting her port accessed. Consult/Follow Up/Orders Follow Up Appt.: With her PCP or the electromedical equipment repairer of the facility in [address] Rousseau at the cancer center as scheduled. Skilled NF Admit to: [facility] Certification (SNF) I certify that SNF services are required to be given on an inpatient basis because of the above named patient's need for detention care on a continuing basis for the conditions(s) for which he/she was receiving inpatient hospital services prior to his/her transfer to the SNF. Detention Facility Order: Nursing Services, Shipper/Receiver-Evaluate & Treat, Physical Therapy-Evaluate & Treat Oxygen Delivery Method: Room Air Discharge Diet: No Restrictions Daily Activity as Tolerated: Yes Resuscitation Status: Full Code New & Resume Previous Orders Tamika Nicholas Aug 14, 2021 10:45 TAMIKA NICHOLAS MD Aug 14, 2021 10:45
--- NOTE | 2021-08-14 12:13 | Occupational Ther Daily Note ---
OT Current Status-Daily Note Subjective Pt in bed, breakfast tray in front of her but had not eaten any of her breakfast, even though it was almost 1130AM. Mental Status/Objective Patient Orientation: Confused ADL-Treatment Therapy Code Descriptions/Definitions Functional [place] Measure: 0=Not Assessed/NA 4=Minimal Assistance 1=Total Assistance 5=Supervision or Setup 2=Maximal Assistance 6=Modified [place] 3=Moderate Assistance 7=Complete IndependenceSCALE: Activities may be completed with or without assistive devices. 2-Hfzoqnokzb-sohpoce completes the activity by him/herself with no assistance from a helper. 5-Set-up or Clean-up Assistance-helper sets up or cleans up; patient completes activity. Abie assists only prior to or following the activity. 4-Supervision or Touching Assistance-helper provides verbal cues and/or touching/steadying and/or contact guard assistance as patient completes activity. Assistance may be provided throughout the activity or intermittently. 3-Partial/Moderate Assistance-helper does LESS THAN HALF the effort. Abie lifts, holds or supports trunk or limbs, but provides less than half the effort. 2-Substantial/Maximal Assistance-helper does MORE THAN HALF the effort. Abie lifts or holds trunk or limbs and provides more than half the effort. 3-Bphcwpvqg-inuhog does ALL the effort. Patient does none of the effort to complete the activity. Or, the assistance of 2 or more helpers is required for the patient to complete the activity. If activity was not attempted, code reason: 7-Patient Refused. 9-Not Applicable-not attempted and the patient did not perform the activity before the current illness, exacerbation or injury. 10-Not Attempted due to Environmental Limitations-(lack of equipment, weather restraints, etc.). 88-Not Attempted due to Medical Conditions or Safety Concerns. Eating (QC): 2 (max A) Other Treatment Pt in bed, agreeable to OT Tx. Pt unable to sequence or initiate eating food from tray table. OT cut pts food and presented it to pt's mouth, she is then able to open her mouth, chew food and swallow. OT encouraged pt to eat herself, able to grab food from OT's hand, but then placed back onto her tray. When OT presented the same piece of food to pt's mouth and cued her, she was able to eat the bite of food. Pt grasped cup from tray table and brought to mouth, attempting to drink from stray, but the cup was empty. OT presented a cup of OJ with straw to pt's mouth and she was able to drink. Pt ate ~25% of her meal, assistance required for all of task. OT notified nursing staff about pt requiring assistance with all meals. Post tx, pt in bed, call light in reach and all needs met, bed alarm activated. Education OT Patient Education: Correct positioning, Modified ADL techniques, Progress toward Goal/Update tx plan, Purpose of tx/functional activities Teaching Recipient: Patient Response to Teaching: Unable to Return Demonstration, Unable to Comprehend OT Shelter Goals Duplicating Machine Servicer Goals Time Frame: Aug 21, 2021 Eating (QC): 6 Oral Hygiene (QC): 4 Toileting Hygiene (QC): 4 Shower/Bathe Self (QC): 4 Upper Body Dressing (QC): 5 Lower Body Dressing (QC): 4 On/Off Footwear (QC): 4 Additional Goals: 1-Demonstrate ADL Tasks, 2-Verbalize Understanding, 3- ImproveStrength/Mackenzie 1=Demonstrate adherence to instructed precautions during ADL tasks. 2=Patient will verbalize/demonstrate understanding of assistive devices/modifications for ADL. 3=Patient will improve strength/tolerance for activity to enable patient to perform ADL's. OT Education/Plan Problem List/Assessment Assessment: Decreased Activ Tolerance, Decreased Safety Aware, Decreased UE Strength, Impaired Cognition, Impaired Funct Balance, Impaired I ADL's, Impaired Self-Care Skills Discharge Recommendations Plan/Recommendations: Continue POC Treatment Plan/Plan of Care Patient would benefit from OT for education, treatment and training to promote independence in ADL's, mobility, safety and/or upper extremity function for ADL's. Plan of Care: ADL Retraining, Functional Mobility, UE Funct Exercise/Act Treatment Duration: Aug 21, 2021 Frequency: 3 times per week (3-5 times per week) Estimated Hrs Per Day: .25 hour per day Rehab Potential: Guarded Time/GCodes Start Time: 11:24 Stop Time: 11:44 Total Time Billed (hr/min): 20 Billed Treatment Time 1, ADL ANGELITO BALLESTEROS OT Aug 14, 2021 12:12
[2021-08-14] MEDS: ENOXAPARIN 40 MG/0.4 ML (LOVENOX) SYR SQ SCH (13:13)
[2021-08-14 13:45] VITALS: BP 115/63
== END 2021-08-14 13:45 | DRG 689 ==
LOC: EDUNIT# 16:49 → ER 16:52 → 4TH 17:28 → EDLOC 17:28
PROVIDERS: ADMIT Family Medicine; ATTEND Family Medicine
DX: N39.0 Urinary tract infection, site not specified (principal); D61.810 Antineoplastic chemotherapy induced pancytopenia; C34.90 Malignant neoplasm of unspecified part of unspecified bronchus or lung; C79.31 Secondary malignant neoplasm of brain; E11.9 Type 2 diabetes mellitus without complications; F20.9 Schizophrenia, unspecified; I10 Essential (primary) hypertension; J43.9 Emphysema, unspecified; E78.00 Pure hypercholesterolemia, unspecified; K21.9 Gastro-esophageal reflux disease without esophagitis; K57.90 Diverticulosis of intestine, part unspecified, without perforation or abscess without bleeding; M19.90 Unspecified osteoarthritis, unspecified site; G89.29 Other chronic pain; M54.9 Dorsalgia, unspecified; F41.9 Anxiety disorder, unspecified; F32.A Depression, unspecified; F60.9 Personality disorder, unspecified; K76.0 Fatty (change of) liver, not elsewhere classified; Z79.82 Long term (current) use of aspirin; Z79.4 Long term (current) use of insulin; Z79.899 Other long term (current) drug therapy
CPT/HCPCS: 36415; 80048; 82947; 85025; 85027; 94760; 99281

== ENCOUNTER 2021-08-17 10:07 | Outpatient (RCR) | payer MEDICARE, MEDICAID ==
[2021-08-03 09:09] LABS: BASOPHILS # (AUTO) 0.1 10^3/uL (0.0-0.1); BASOPHILS % (AUTO) 1 % (0-10); EOSINOPHILS % (AUTO) 0 % (0-10); HEMATOCRIT 37 % (35-52); HEMOGLOBIN 12.1 g/dL (11.5-16.0); LYMPHOCYTES # (AUTO) 1.5 10^3/uL (1.0-4.0); LYMPHOCYTES % (AUTO) 12 % (12-44); MEAN CORPUSCULAR HEMOGLOBIN 30 pg (25-34); MEAN CORPUSCULAR HGB CONC 33 g/dL (32-36); MEAN CORPUSCULAR VOLUME 91 fL (80-99); MONOCYTES # (AUTO) 0.9 10^3/uL (0.0-1.0); MONOCYTES % (AUTO) 7 % (0-12); NEUTROPHILS # (AUTO) 9.4 10^3/uL (1.8-7.8); NEUTROPHILS % (AUTO) 75 % (42-75); PLATELET COUNT 502 10^3/uL (130-400); WHITE BLOOD COUNT 12.6 10^3/uL (4.3-11.0)
[2021-08-03 09:30] LABS: ALBUMIN 3.6 GM/DL (3.2-4.5); BILIRUBIN,TOTAL 0.5 MG/DL (0.1-1.0); CALCIUM 8.6 MG/DL (8.5-10.1); CREATININE SERUM 0.99 MG/DL (0.60-1.30); POTASSIUM 4.3 MMOL/L (3.6-5.0); TOTAL PROTEIN 6.3 GM/DL (6.4-8.2)
[~2021-08-17] VITALS: Ht 157.5 cm; Wt 70.3 kg
[~2021-08-17 10:07] MED LIST changes: +ALTEPLASE 2 MG (CATHFLO) IV ONE; +ATEZOLIZUMAB IV SCH; +CARBOPLATIN IV SCH; +D5W IV SCH; +DEXAMETHASONE IV SCH; +ETOPOSIDE 175 MG in NORMAL SALINE 500 ML IV SCH; +FOSAPREPITANT (CANCER CENTER) 150 MG in NS (IVPB) CANCER CENTER ONLY 150 ML IV SCH; +HEParin (CENTRAL IV FLUSH) 500 UNIT/5 ML SYR IV PRN; +INSU100V16 SC; +INSU100V5 SQ; +INSU200I4 SC; +NS IV 1000 ML (CANCER CTR) IV SCH; +NS IV SCH; +ONDANSETRON 4 MG (ZOFRAN) ORAL DISSOLVE TAB PO SCH; +ONDANSETRON IV SCH; +PEGFILGRASTIM 6 MG/0.6 ML ONPRO KIT SQ SCH; +RT-ALBUINH INH
== END 2021-08-22 | disposition home or self-care (01) ==
LOC: ONC 10:07
PROVIDERS: ATTEND Internal Medicine
DX: Z51.0 Encounter for antineoplastic radiation therapy (principal); Z51.11 Encounter for antineoplastic chemotherapy; C34.90 Malignant neoplasm of unspecified part of unspecified bronchus or lung; C79.31 Secondary malignant neoplasm of brain; F20.9 Schizophrenia, unspecified
CPT/HCPCS: 36591; 77336; 77386; 80053; 85025; 96360; 96367; 96375; 96377; 96413; 96417; 99213; J2506

== ENCOUNTER 2022-01-22 21:45 | Emergency (ER) | payer MEDICARE, MEDICAID ==
[~2022-01-22] VITALS: Ht 157.5 cm; Wt 59.0 kg
[~2022-01-22 21:45] MED LIST changes: -ALTEPLASE 2 MG (CATHFLO) IV ONE; -ATEZOLIZUMAB IV SCH; -CARBOPLATIN IV SCH; -D5W IV SCH; -DEXAMETHASONE IV SCH; -ETOPOSIDE 175 MG in NORMAL SALINE 500 ML IV SCH; -FOSAPREPITANT (CANCER CENTER) 150 MG in NS (IVPB) CANCER CENTER ONLY 150 ML IV SCH; -HEParin (CENTRAL IV FLUSH) 500 UNIT/5 ML SYR IV PRN; -NS IV 1000 ML (CANCER CTR) IV SCH; -NS IV SCH; -ONDANSETRON 4 MG (ZOFRAN) ORAL DISSOLVE TAB PO SCH; -ONDANSETRON IV SCH; -PEGFILGRASTIM 6 MG/0.6 ML ONPRO KIT SQ SCH
[2022-01-22] MEDS ORDERED: SCOPOLAMINE 1.5 MG (TRANSDERM-SCOP) PATCH TD STA (21:52)
[2022-01-22] MEDS ORDERED: ONDANSETRON 4 MG/2 ML (SDV) Z0FRAN IVP ONE (22:00)
--- NOTE | 2022-01-22 23:00 | ED General ---
General Chief Complaint: Respiratory Problems Stated Complaint: VOMITING, SOB Nursing Triage Note: PT TO ROOM BY [facility] FROM [facility]. PT IS ON HOSPICE FOR LUNG AND BRAIN CANCER. EMS REPORTS PT HAD N/V AT [facility] AND O2 IN THE MID 80S. PT ON 2L O2 ON ARRIVAL WITH O2 SAT OF 83%. O2 BUMPED TO 10L AND PT CAME UP TO 88%. PT REPORTS BEING ON ROOM AIR TYPICALLY. Source of Information: EMS, Family, Long-Term Records Exam Limitations: Physical Impairments, Other History of Present Illness Date Seen by Provider: Jan 22, 2022 Time Seen by Provider: 21:50 Allergies and Home Medications Allergies Coded Allergies: latex (Verified Allergy, Mild, rash, 12/10/14) ampicillin (Unverified Allergy, Unknown, 02/07/14) cetirizine HCl (Unverified Allergy, Unknown, 02/07/14) dimenhydrinate (Unverified Allergy, Unknown, 02/07/14) metformin HCl (Unverified Adverse Reaction, Unknown, 02/07/14) CAN TAKE METFORMIN Patient Home Medication List Home Medication List Reviewed: Yes Albuterol Sulfate (Ventolin Hfa) 1 Puff Puff, 2 PUFF INH Q4H PRN for SHORTNESS OF BREATH, (Reported) Entered as Reported by: HALIMA ENAMORADO on 08/11/21 1615 Aspirin (Aspirin EC) 81 Mg Tablet.dr, 81 MG PO HS, (Reported) Entered as Reported by: HALIMA ENAMORADO on 06/16/21 1454 Cephalexin (Cephalexin) 500 Mg Tablet, 500 MG PO BID Prescribed by: DAVID WALLS on 08/14/21 1044 Duloxetine HCl (Duloxetine HCl) 60 Mg Capsule.dr, 60 MG PO DAILY, (Reported) Entered as Reported by: HALIMA ENAMORADO on 06/16/21 1454 Fenofibrate Nanocrystallized (Fenofibrate) 145 Mg Tablet, 145 MG PO HS, (Reported) Entered as Reported by: HALIMA ENAMORADO on 06/16/21 1454 Insulin Aspart (Novolog) 100 Unit/Ml Susp, 0 UNIT SC ACHS Prescribed by: DAVID WALLS on 08/14/21 1044 Insulin Determir (Levemir) 100 Unit/Ml Soln, 10 UNIT SQ HS Prescribed by: DAVID WALLS on 08/14/21 1044 Multivitamin (Multivitamin) 1 Each Tablet, 1 EACH PO DAILY, (Reported) Entered as Reported by: HALIMA ENAMORADO on 06/16/21 1454 Pantoprazole Sodium (Pantoprazole Sodium) 40 Mg Tablet.dr, 40 MG PO HS, (Reported) Entered as Reported by: HALIMA ENAMORADO on 06/16/21 1454 Pravastatin Sodium (Pravastatin Sodium) 40 Mg Tablet, 40 MG PO HS, (Reported) Entered as Reported by: APRIL NARANJO on 06/22/21 1459 Trazodone HCl (Trazodone HCl) 100 Mg Tablet, 100 MG PO HS, (Reported) Entered as Reported by: APRIL NARANJO on 06/22/21 1459 Past Mlnpwqk-Irevzf-Aovqwl Hx Patient Social History Use of E-Cig and/or Vaping dev: Unable to obtain Substance use?: Unable to obtain Alcohol Use?: Unable to obtain Immunizations Up To Date First/Initial COVID19 Vaccinat: 2020 Second COVID19 Vaccination Gurdeep: 2020 Third COVID19 Vaccination Date: FEB 2021 Seasonal Allergies Seasonal Allergies: Yes Past Medical History Surgery/Hospitalization HX: has brain tumors and cx history with active treatment Surgeries: Yes (PARTIAL HYST, BLADDER SLING, GALLBLADDER) Adenoidectomy, Tonsillectomy Respiratory: Yes (LUNG CANCER PRIMARY) Asthma, COPD, Emphysema Currently Using CPAP: No Currently Using BIPAP: No Cardiac: Yes High Cholesterol, Hypertension Neurological: Yes Brain Tumor Genitourinary: Yes Bladder Infection Gastrointestinal: Yes Gastroesophageal Reflux, Diverticulosis Musculoskeletal: Yes Arthritis, Chronic Back Pain Endocrine: Yes Diabetes, Insulin dep HEENT: Yes (GLASSES) Cancer: Yes Brain, Lung Psychosocial: Yes (CHEMICAL IMBALANCE) Anxiety, Personality Disorder, Schizophrenia, Depression Integumentary: Yes Eczema Blood Disorders: No Physical Exam Vital Signs Vital Signs - First Documented 01/22/22 21:45 Temp 36.1 Pulse 126 Resp 30 B/P (MAP) 112/93 (99) Pulse Ox 88 O2 Delivery OxyMask O2 Flow Rate 10.00 Capillary Refill : Height, Weight, BMI Height: 5'3.50" Weight: 179lbs. oz. [id number]; 23.00 BMI Method: Progress/Results/Core Measures Suspected Sepsis SIRS Temperature: Pulse: 126 Respiratory Rate: 30 Blood Pressure 112 /93 Mean: 99 Results/Orders Lab Results Laboratory Tests Test 01/22/22 21:57 Range/Units Glucometer 152 H 70-110 MG/DL My Orders Orders - JOY HIGGINBOTHAM MD Ondansetron Injection (Zofran Injectio (01/22/22 22:00) Scopolamine Patch (Transderm-Scop Patch) (01/22/22 21:52) Implanted Port: Ok To Use (01/22/22 21:52) Accucheck Stat ONCE (01/22/22 21:53) Medications Given in ED Current Medications Medications Dose Ordered Sig/Priyanka Route Start Time Stop Time Status Last Admin Dose Admin Ondansetron HCl 8 mg ONCE ONCE IVP 01/22/22 22:00 01/22/22 22:01 DC 01/22/22 22:06 8 MG Vital Signs/I&O 01/22/22 01/22/22 21:45 23:48 Temp 36.1 36.1 Pulse 126 122 Resp 30 22 B/P (MAP) 112/93 (99) 104/64 Pulse Ox 88 88 O2 Delivery OxyMask OxyMask O2 Flow Rate 10.00 10.00 Capillary Refill : Blood Pressure Mean: 99 Point of Care Testing Finger Stick Blood Glucose: 152 Blood Glucose Action Taken: Rn notified Progress Note : Progress Note Patient was treated with suction, DuoNeb by EMS, Zofran, and scopolamine patch. She was continued on high flow oxygen which was slowly tapered down. At discharge she was stable on mask at 7 L/min. I discussed the situation with the hospice nurse and patient's POA. Both are in agreement that we should continue pursuing hospice care. Based on her care needs at this time, she should be able to return to the alf for continued hospice there. The hospice provider will supply the alf with a suction device for clearing secretions. She was discharged with a scopolamine patch in place. Departure Impression Primary Impression: Vomiting Qualified Codes: R11.10 - Vomiting, unspecified Additional Impressions: Aspiration into airway Qualified Codes: T17.908A - Unspecified foreign body in respiratory tract, part unspecified causing other injury, initial encounter Hypoxia Hospice care Disposition: HOME, SELF-CARE Condition: Improved Departure-Patient Inst. Decision time for Depature: 22:58 Referrals: KAMILAH MEZA (Family) Primary Care Physician Patient Instructions: Palliative Care Add. Discharge Instructions: Hospice intends to provide a suction device to help manage secretions. A scopolamine patch was applied in the emergency room to help with nausea and s ecretions. This may remain on for 3 days. Work with hospice to provide comfort measures with medications and other therapies. Oxygen may be used for comfort but may not resolve the hypoxia. Work with hospice and foundation director with any other problems or concerns. All discharge instructions reviewed with patient and/or family. Voiced understanding. JOY HIGGINBOTHAM MD Jan 22, 2022 23:00
[2022-01-22 23:48] VITALS: BP 104/64
== END 2022-01-22 23:48 | disposition home or self-care (01) ==
LOC: EDUNIT# 21:49 → ER 21:50
DX: T17.900A Unspecified foreign body in respiratory tract, part unspecified causing asphyxiation, initial encounter (principal); E11.9 Type 2 diabetes mellitus without complications; Z51.5 Encounter for palliative care; Z91.040 Latex allergy status; Z79.4 Long term (current) use of insulin; W45.8XXA Other foreign body or object entering through skin, initial encounter
CPT/HCPCS: 82947